=== PATIENT | female | born 1975 | race Caucasian/White ===

== ENCOUNTER 2019-07-12 20:20 | Inpatient (IN) | payer BC ==
[~2019-07-12] VITALS: Ht 152.4 cm; Wt 104.1 kg
--- NOTE | 2019-07-12 20:20 | NUR ---
Placed in room 1 . Placed on quality assurance monitor body, blood pressure machine and pulse oximeter. To gown for exam. Side rails up.
--- NOTE | 2019-07-12 20:20 | NUR ---
ER Dr. Gilman at bedside examining patient.
[2019-07-12 20:25] VITALS: BP_SYST 115
--- NOTE | 2019-07-12 20:25 | NUR ---
Pt came to the ED from [facility] for respiratory distress. Reports that pt was on the vent however, staff noticed pts O2 was 92%. When pt arrived pt was being bagged. Pt is nonverbal as baseline. Upon observation pt is diaphoretic, tachypneic and tachycardic. No other complaints/injuries noted. Will cont. to monitor.
[2019-07-12] MEDS ORDERED: CLINDAMYCIN 900 mg/50mL D5W 50 ML IV ONE (20:30)
[2019-07-12] MEDS ORDERED: NACL 0.9% 1,000 ML IV ONE (20:30)
--- NOTE | 2019-07-12 20:30 | NUR ---
lab at bedside.
--- NOTE | 2019-07-12 20:30 | NUR ---
Per Dr. Gilman pts vent settings are Fortex 7, AC 12, FIO2 60%, 3 PEEP, and tidal volume 400.
[2019-07-12 20:45] LABS: HEMATOCRIT 37.1 % (36-48); HEMOGLOBIN 11.9 g/dL (12.0-16.0); MEAN CORPUSCULAR HEMOGLOBIN 34 pg (27-31); MEAN CORPUSCULAR HGB CONC 32 % (32-36); MEAN CORPUSCULAR VOLUME 106 fL (79.0-98.0); PLATELET COUNT (AUTO) 363 K/uL (130-430); RED CELL DISTRIBUTION WIDTH 15.8 % (9.0-15.0); WHITE BLOOD COUNT (AUTO) 17.1 K/uL (4.8-10.8)
[2019-07-12] MEDS ORDERED: ACETAMINOPHEN 650 MG SUPP.RECT RC ONE (20:45)
--- NOTE | 2019-07-12 21:00 | NUR ---
pt had loose BM. ER Made aware. Pt cleaned. Tolerated well. Will cont. to monitor.
[2019-07-12 21:03] LABS: BILIRUBIN,URINE NEGATIVE (NEGATIVE); BLOOD, URINE 3+ (NEGATIVE); CLARITY/URINE CLOUDY (CLEAR); COLOR,URINE YELLOW (YELLOW); GLUCOSE,URINE NEGATIVE (NEGATIVE); KETONES,URINE NEGATIVE (NEGATIVE); LEUKOCYTE ESTERASE ,URINE 1+ (NEGATIVE); NITRITE, URINE NEGATIVE (NEGATIVE); PROTEIN URINE 3+ (NEGATIVE)
--- NOTE | 2019-07-12 21:08 | NUR ---
radiology at bedside.
[2019-07-12 21:10] LABS: CALCIUM 9.2 mg/dL (8.4-11.0); CREATININE 0.64 mg/dL (0.55-1.30)
[2019-07-12 21:17] LABS: POTASSIUM 5.3 mmol/L (3.5-5.1); TOTAL BILIRUBIN 0.1 mg/dL (0.0-1.0)
[2019-07-12 21:18] LABS: ALBUMIN 2.1 g/dL (3.4-4.8)
[2019-07-12 21:36] LABS: ATYPICAL LYMPHOCYTES % 0 % (0-0); BAND % (MANUAL) 40 % (0-6); BASOPHILS % (MANUAL) 0 % (0-2); EOSINOPHILS % (MANUAL) 2 % (0-7); LYMPHOCYTES % (MANUAL) 10 % (20-46); METAMYELOCYTES % 2 % (0-0); MONOCYTES % (MANUAL) 4 % (0-11)
[2019-07-12 21:44] LABS: BACTERIA,URINE MANY /HPF (None Seen); WBC,URINE >100 /HPF (0-3)
[2019-07-12 21:46] LABS: MUCUS,URINE 1+ /LPF (None Seen); URINE AMORPHOUS URATE 2+ /HPF (None Seen)
[2019-07-12 21:47] LABS: PROTHROMBIN TIME 10.5 SECS (9.5-12.5)
[2019-07-12] MEDS ORDERED: SODIUM POLYSTYRENE SULFONATE 15 GM/60 ML UDBTL RC ONE (22:15)
[2019-07-12] MEDS ORDERED: APIX5TAB4 GT (22:22)
[2019-07-12] MEDS ORDERED: BETH25TA10 GT (22:22)
[2019-07-12] MEDS ORDERED: PEDI0.2517 GT (22:22)
[2019-07-12] MEDS ORDERED: IPRA3AMP9 INH ×2 (22:22)
[2019-07-12] MEDS ORDERED: CRAN1CAP8 GT (22:22)
[2019-07-12] MEDS ORDERED: FURO-149 GT (22:22)
[2019-07-12] MEDS ORDERED: VALP500S4 GT (22:22)
[2019-07-12] MEDS ORDERED: DOCU-144 GT (22:22)
[2019-07-12] MEDS ORDERED: ASCO500T20 PO (22:22)
[2019-07-12] MEDS ORDERED: POTA20TA83 PO (22:22)
[2019-07-12] MEDS ORDERED: CHLO1LIQ2 MC (22:22)
[2019-07-12] MEDS ORDERED: ZINC500P17 GT (22:22)
[2019-07-12] MEDS ORDERED: PHEN20EL8 GT (22:22)
[2019-07-12] MEDS ORDERED: FAMO40TA7 GT (22:22)
[2019-07-12] MEDS ORDERED: CARV3.1246 PO (22:22)
[2019-07-12] MEDS ORDERED: MAGN400T10 GT (22:22)
[2019-07-12] MEDS ORDERED: TYLL650 GT (22:22)
[2019-07-12] MEDS ORDERED: KEPI500 IV (22:22)
[2019-07-12] MEDS ORDERED: NS 500 ML IV ONE (22:30)
--- NOTE | 2019-07-12 22:30 | NUR ---
Medication reconciliation completed with information provided by patients paperwork. Any prior medication reconciliation on file was reviewed and corrected.
--- NOTE | 2019-07-12 23:00 | NUR ---
Patient will be admitted to care of Dr. Nguyen. Admitted to ICU unit. Will go to room 1. Belongings list completed. Complete and up to date summary report printed. SBAR report to be given at bedside with opportunity for questions.
[2019-07-12] MEDS: NACL 0.9% 1,000 ML IV SCH (23:20)
[2019-07-13] VITALS (33 sets, daily range): BP systolic 96–136
[2019-07-13] MEDS: NACL 0.9% 1,000 ML IV SCH ×3 (00:31→18:08)
--- NOTE | 2019-07-13 00:45 | NUR ---
Transfer to ICU via ACLS protocol. Licensed nurse present. IV present no signs or symptoms of infiltration.
--- NOTE | 2019-07-13 00:50 | NUR ---
Admission Note Received report from ED RN. Pt in bed, asleep. Arousable to light stimuli. Pt ST on the monitor. Trach to Vent. Portex 7. AC 12, 400, +3, 60%. Tolerating well, saturations in the mid 90s. Pt has LAC 22g in place, C/D/I. G-tube clamped. Rose catheter has been inserted in ED. Draining urine to gravity. Will continue to monitor/.
--- NOTE | 2019-07-13 01:30 | NUR ---
CONSULTATION PAGED/CALLED Reason for Consultation: Asperation Pneumonia Person Who was Notified: Exchange Consulting Physician: Dr. Gasca (Dr. Patel correctional facility nurse) Homogenizer Operator Specialty: Pulmonary Ordering Physician: Dr. Nguyen
[2019-07-13] MEDS ORDERED: metroNIDAZOLE 500 mg/NS 100 ML IV ONE (02:46)
--- NOTE | 2019-07-13 02:50 | NUR ---
Called Spoke w/ Dr. Patel for initial consultation regarding Pt. New orders received. Will carry out as ordered.
[2019-07-13] MEDS: metroNIDAZOLE 500 mg/NS 100 ML IV SCH ×3 (03:12→16:18)
[2019-07-13 05:37] LABS: BASOPHILS % (AUTO) 0.4 % (0.0-2.0); EOSINOPHILS # (AUTO) 0.1 K/uL (0.0-0.4); EOSINOPHILS % (AUTO) 0.8 % (0.0-4.0); HEMATOCRIT 30.5 % (36-48); HEMOGLOBIN 9.9 g/dL (12.0-16.0); LYMPHOCYTES # (AUTO) 1.8 K/uL (1.0-5.5); MEAN CORPUSCULAR HEMOGLOBIN 34 pg (27-31); MEAN CORPUSCULAR HGB CONC 33 % (32-36); MEAN CORPUSCULAR VOLUME 105 fL (79.0-98.0); MONOCYTES # (AUTO) 2.1 K/uL (0.0-1.0); MONOCYTES % (AUTO) 17.8 % (1.7-9.3); PLATELET COUNT (AUTO) 306 K/uL (130-430); RED BLOOD CELL COUNT(AUTO) 2.92 MIL/uL (4.2-6.2); RED CELL DISTRIBUTION WIDTH 15.2 % (9.0-15.0)
[2019-07-13 06:00] LABS: ALBUMIN 1.8 g/dL (3.4-4.8); CALCIUM 8.1 mg/dL (8.4-11.0); CREATININE 0.4 mg/dL (0.55-1.30); POTASSIUM 3.9 mmol/L (3.5-5.1)
[2019-07-13 06:39] LABS: TOTAL BILIRUBIN 0.2 mg/dL (0.0-1.0)
--- NOTE | 2019-07-13 06:59 | NUR ---
Closing Note Pt in bed, asleep. open eyes spontaneously, but unable to track. Pt is Sr/ST on the monitor, Trach to vent. AC 16, 400, +5, 60%. Pt has LAC 22g in running IVf. IV sites C/D/I. Rose catheter in place draining urine to gravity. Pt has G-tube clamped. Pt cleaned and turned. No s/s of distress noted. Will endorse to oncoming RN.
--- NOTE | 2019-07-13 07:15 | NUR ---
Opening Note Patient report received via SBAR from nightshift RN.
--- NOTE | 2019-07-13 07:30 | NUR ---
Nursing Note Patient lying in non-air mattress bed at 30 degrees, eyes open spontaneously but in unable to track, lethargic. Patient is sinus rhythm on the monitor with occasional PVC, edema present in bilateral extremities, Left AC 22G is running NS @50mL/hr, IV site is clean, dry, and intact. Patient is on trach to ventilator, AC 16, TV 400, Peep 5, Fio2: 60%. Rose catheter is draining to gravity with yellow urine present. G-tube present and clamped, dressings present on bilateral lower extremities and sacrum. Patient in no distress, bed in lowest position.
[2019-07-13] MEDS ORDERED: ACETAMINOPHEN 325 MG TABLET PO PRN (08:30)
[2019-07-13] MEDS ORDERED: ONDANSETRON HCL 4 MG/2 ML VIAL IVP PRN (08:30)
[2019-07-13] MEDS ORDERED: MUPIROCIN 2% TOPICAL OINTMENT 22 GM NS PRN (08:30)
[2019-07-13] MEDS ORDERED: LORazepam 2 MG/ML VIAL IVP PRN (08:30)
[2019-07-13] MEDS ORDERED: POTASSIUM CHLORIDE 20 MEQ TAB.PRT.SR PO PRN (08:30)
[2019-07-13] MEDS ORDERED: IPRATROPIUM/ALBUTEROL SULFATE 3 ML AMPUL.NEB (DUONEB) INH PRN (08:30)
[2019-07-13] MEDS ORDERED: MAGNESIUM SULFATE 50 ML IV PRN (08:30)
[2019-07-13] MEDS ORDERED: DOCUSATE SODIUM 100 MG CAPSULE PO PRN (08:30)
[2019-07-13] MEDS ORDERED: MORPHINE 2 MG/ML INJ. SYRINGE IVP PRN ×2 (08:30)
--- NOTE | 2019-07-13 08:30 | NUR ---
Round Dr. Nguyen at bedside assessing patient, physician entered consult, lab, and medication orders
[2019-07-13] MEDS: IPRATROPIUM/ALBUTEROL SULFATE 3 ML AMPUL.NEB (DUONEB) INH SCH ×2 (08:55→21:00)
[2019-07-13] MEDS ORDERED: FAMOTIDINE 20 MG TABLET GT SCH (09:00)
[2019-07-13] MEDS ORDERED: LevETIRAcetam 500 MG/5 ML UDC ORAL LIQUID GT SCH ×2 (09:00)
[2019-07-13] MEDS ORDERED: VALPROIC ACID ORAL SYRUP 250 MG/5 ML UDC GT SCH (09:00)
[2019-07-13] MEDS: DOCUSATE SODIUM 100 MG CAPSULE PO SCH (09:00)
[2019-07-13] MEDS ORDERED: FUROSEMIDE 40 MG TABLET GT SCH (09:00)
[2019-07-13] MEDS ORDERED: HEPARIN SODIUM,PORCINE 5000 UNITS/ML VIAL SUBCUT SCH (09:00)
[2019-07-13 09:09] LABS: INR 1.1 (0.8-1.2); PROTHROMBIN TIME 10.8 SECS (9.5-12.5)
--- NOTE | 2019-07-13 09:30 | NUR ---
Round Dr. Schmitt, new consult, at bedside assessing patient, physician entered orders
--- NOTE | 2019-07-13 10:00 | NUR ---
Round Dr. Avendaño, new consult, at bedside assessing patient, physician entered orders
[2019-07-13] MEDS: CARVEDILOL 3.125 MG TABLET (COREG) PO SCH ×2 (10:08→20:46)
[2019-07-13] MEDS: BETHANECHOL CHLORIDE 25 MG TABLET (URECHOLINE) GT SCH ×2 (10:09→20:50)
[2019-07-13] MEDS: APIXABAN 2.5 MG TABLET PO SCH ×2 (10:30→20:48)
[2019-07-13] MEDS: VALPROIC ACID ORAL SYRUP 250 MG/5 ML UDC GT SCH ×3 (10:45→20:49)
[2019-07-13] MEDS: FUROSEMIDE 40 MG TABLET GT SCH ×2 (10:45→20:46)
--- NOTE | 2019-07-13 10:45 | NUR ---
Round Dr. Gasca at bedside assessing patient for consult, physician entered orders
--- NOTE | 2019-07-13 11:20 | NUR ---
WOUND EVALUATION: Late note for 1120 secondary to patient care. Wound Consult received from Dr. Nguyen. Thank you, Dr. Nguyen, for the consult. Patient received in a [place] Bed with an Atmos-Air 9000 mattress, awake, nonverbal, nonresponsive to verbal commands. Patient is unable to turn in bed independently. Wyatt Score is an 11. Past Medical History: Cerebral infarct, CVA, Obesity, history of multiple episodes of Pneumonia, Dysphagia, recent ventilator dependent pneumonia, Seizure disorder, Hydrocephalus, possible developmental delay, Respiratory Failure, COPD, Tachycardia, Aspiration Pneumonia, Tracheostomy, ventilator dependent, PEG placement. Recent Labs: WBC 12.0, RBC 2.92, hemoglobin 9.9, hematocrit 30.5, BUN 15, creatinine 0.40, GFR 185, calcium 8.1, alkaline phosphatase 140, albumin 1.8, PTT 20.8. Microbiology: Blood culture results 2 in progress. Urine culture results in progress. MRSA screen results in progress. Endotracheal sputum culture results in progress. Intrinsic factors that delay wound healing: Dysphagia, COPD, Respiratory Failure, ventilator dependent. Extrinsic factors that delay wound healing: Immobility. Wound Assessment: 1. Right Lateral Breast Fold: Crusty/scab area with 50% yellow scab and 50% black scab and erythema. No odor, no drainage. Site measures 1.4 cm x 2.7 cm. 2. Left Lateral Breast Fold Crusty/scab area with 50% yellow scab and 50% black scab and erythema. No odor, no drainage. Site measures 5.0 cm x 2.2 cm. 3. Right Upper Lateral Abdominal Skin Fold Crusty/scab area with 50% yellow scab and 50% black scab and erythema. No odor, no drainage. Site measures 8.5 cm x 1.4 cm. 4. Left Upper Lateral Abdominal Skin Fold Crusty/scab area with 50% yellow scab and 50% black scab and erythema. No odor, no drainage. Site measures 9.5 cm x 3.2 cm. Recommend: Cleanse involved areas with mild soap and water. Pat dry. Apply Hydraguard barrier cream to scaly areas. Apply antifungal powder to reddened fold areas. Insert Inter-dry AG cloth into fold areas. Perform site care BID. Replace Inter-dry AG cloth q 5 days and as needed for cloth soiling or dislodgement. 5. Abdominal fold: Intertrigo with erythema, present on admission. Nonintact skin from intertrigo present on left lateral aspect. 6. Right Inguinal Area: IAD with erythema, present on admission. 7. Left Inguinal Area: IAD with erythema, present on admission. Recommend: Cleanse involved areas with mild soap and water. Pat dry. Apply antifungal powder to reddened fold areas and reddened inguinal/thigh areas. Insert Inter-dry AG cloth into fold areas. Perform site care BID. Replace Inter-dry AG cloth q 5 days and as needed for cloth soiling or dislodgement. 8. Right Buttock: Scar tissue with moisture associated skin damage, present on admission. No odor, scant sanguineous drainage. Periwound intact. Site measures 4.0 cm x 3.0 cm. 9. Left Buttock: Scar tissue with moisture associated skin damage, present on admission. No odor, scant sanguineous drainage. Periwound intact. Site measures 0.6 cm x 2.7 cm. Recommend: Cleanse wounds with normal saline. Apply Calmoseptine cream to wounds, hai-wounds and surrounding tissue. Apply Venelex ointment to any portion of sites not covered by Calmoseptine cream. Cover with Sacral foam dressing. Perform wound care daily, and as needed for dressing soiling or dislodgement. 10. Right Distal Lateral Lower Extremity: Scar tissue, present on admission. Area has scar tissue with a red discolored spot and dark discoloration. Site measures 7.0 cm x 7.5 cm. Recommend: Cover site with foam dressing. Offload site at all times. 11. Right Distal Lateral Lower Extremity, Inferior to Site 10: Unstageable pressure ulcer, present on admission. Wound bed has 90% yellow slough, 10% red tissue. No odor, scant sanguineous drainage. Periwound intact. Surrounding tissue has dark discoloration and scar tissue. Wound measures 5.4 cm x 1.5 cm by 0.2 cm. Recommend: Cleanse wound with normal saline. Apply Calmoseptine cream to hai-wound. Apply Venelex ointment to wound. Cover with foam dressing. Perform wound care daily, and as needed for dressing soiling or dislodgement. Offload site at all times. 12. Right Proximal Medial Calf: Vertical linear shaped area of hypertrophic scar tissue, present on admission. Scar tissue has dark discoloration. No odor, no drainage. Site measures 13.5 cm x 2.0 cm. 13. Right Dorsal Foot: Scar tissue with dry red excoriations, present on admission. Recommend: No dressings needed. Continue to monitor sites every shift. 14. Right Lateral 5th Metatarsal Head: Scar tissue with blanchable pink erythema, present on admission. 15. Right Heel: Scar tissue with blanchable red erythema, present on admission. Recommend: Cover sites with foam dressings. Offload sites at all times. 16. Left Distal Lateral Lower Extremity: Unstageable pressure ulcer, present on admission. Wound bed has 50% yellow slough, 50% pink tissue. No odor, no drainage. Periwound intact. Surrounding tissue has dark discoloration and scar tissue. Wound measures 1.5 cm x 0.7 cm by 0.3 cm. 17. Left Distal Lateral Lower Extremity, surrounding site above: Scar tissue, present on admission. Area is surrounding site above. Has pink scar tissue, dark discoloration, and blanchable red erythema. Site measures 18.5 cm x 5.5 cm. Recommend: Cover site with foam dressing. Offload site at all times. 18. Left Heel: Unstageable pressure ulcer, present on admission. Wound bed has 40% pink tissue, 30% red tissue, 20% yellow slough, 10% black tissue. No drainage. Periwound intact. Wound measures 3.9 cm x 3.5 cm x 0.6 cm. Recommend: Cleanse wound with normal saline. Apply Calmoseptine cream to hai-wound. Apply Venelex ointment to wound. Cover with foam dressing. Perform wound care daily, and as needed for dressing soiling or dislodgement. Offload site at all times. Also recommend: Reposition patient side to side only every 2 hours with pillow support (one pillow underneath trunk and one pillow underneath pelvis) and off-load pressure areas with pillows for pressure re-distribution. Offload, elevate and float bilateral heels with pillows. Perform skin care and monitor skin integrity Q shift. Use Calmoseptine cream on buttocks and other moisture susceptible areas QID and as needed for soiling. Place patient on a low air-loss mattress.
[2019-07-13] MEDS ORDERED: GENTAMICIN 120 mg/ NS 100 mL IVPB IV ONE (12:00)
[2019-07-13] MEDS ORDERED: GENTAMICIN SULFATE 140 MG in NS 100 ML IV ONE (12:00)
[2019-07-13] MEDS: GENTAMICIN 120 mg/100 mL NS 100 ML IV SCH ×2 (12:53→20:42)
--- NOTE | 2019-07-13 13:00 | NUR ---
Nursing Note Patient repositioned in bed, oral care provided, patient tolerated well
--- NOTE | 2019-07-13 13:30 | NUR ---
Nursing Note Patient's tubefeeding started, patient tolerating well, 0mL residual after 1 hour
[2019-07-13] MEDS ORDERED: MENTHOL/ZINC OXIDE 113 GM OINT. TP PRN (16:00)
--- NOTE | 2019-07-13 16:00 | NUR ---
Nursing Note Patient repostiioned in bed, oral care given. Family members at beside vising patient.
--- NOTE | 2019-07-13 19:15 | NUR ---
Closing Note Patient report given to nightshift RN via SBAR communication
--- NOTE | 2019-07-13 19:20 | NUR ---
OPENING NOTE SBAR REPORT RECEIVED FROM GISELA RIZVI. CARE ASSUMED. PT LAYING IN BED. ANO X 0. PT HAS TRACH PORTEX 7.0. VENT SETTING AC 16 TV 400 FiO2 60% PEEP 5. TOLERATING VENT SETTINGS WELL. O2 SATURATION 100%. PT SINUS RHYTHM ON MONITOR. PT HAS 22G TO LEFT AC RUNNING NS @ 50 ML/HR. PEDAL AND RADIAL PULSES NORMAL. 1+ PITTING EDEMA TO BILATERAL UPPER AND LOWER EXTREMITIES. ABDOMEN FIRM AND DISTENDED. REDNESS TO ABDOMEN NOTED. G-TUBE IN PLACE RUNNING JEVITY 1.5 @ 40 CC/HR. RESIDUAL 5CC. SLATER CATHETER IN PLACE FLOWING TO GRAVITY. URINE CLEAR AND YELLOW. PT HAS WOUND TO SACRUM, WOUNDS TO BILATERAL HEALS, 2 WOUNDS TO LEFT LEG, AND 2 WOUNDS TO RIGHT LEG. ALL DRESSING CLEAN DRY AND INTACT. BED LOCKED IN LOWEST POSITION. SAFETY PRECAUTIONS IN PLACE. CALL LIGHT WITHIN REACH. WILL CONTINUE TO MONITOR.
--- NOTE | 2019-07-13 20:30 | NUR ---
RN UPDATE PICC LINE RN GRETCHEN AT BEDSIDE. TIME OUT PERFORMED. WILL CONTINUE TO MONITOR.
[2019-07-13] MEDS: LEVOFLOXACIN 500 MG/D5W 100 ML IV SCH (20:42)
[2019-07-13] MEDS: LevETIRAcetam 500 MG/5 ML UDC ORAL LIQUID GT SCH (20:51)
--- NOTE | 2019-07-13 20:51 | NUR ---
PAGED I PAGED DR. SPEARS I SPOKE WITH ALEX MALAVE
--- NOTE | 2019-07-13 20:54 | NUR ---
MD UPDATE SPOKE TO DR. SPEARS REGARDING PHENOBARBITAL LEVEL. DR. SPEARS WANTS 2100 DOSE HELD AND WOULD LIKE A REPEAT LEVEL IN THE AM. ORDERS UPDATED. WILL CONTINUE TO MONITOR.
--- NOTE | 2019-07-13 20:56 | NUR ---
DR.TSANG DR. SPEARS CALLED BACK @ 2055
[2019-07-13] MEDS ORDERED: PHENobarbital 30 MG TABLET PO SCH (21:00)
[2019-07-13] MEDS: NYSTATIN 15 GM TOPICAL POWDER TP SCH (21:48)
[2019-07-14] VITALS (31 sets, daily range): BP systolic 84–128
[2019-07-14] MEDS: metroNIDAZOLE 500 mg/NS 100 ML IV SCH ×3 (00:57→15:48)
--- NOTE | 2019-07-14 02:00 | NUR ---
RN UPDATE G TUBE SITE LEAKING. DRESSING AND GOWN SOILED WITH FEEDING. TUBE FEEDING STOPPED. GOWN AND DRESSING CHANGED. WILL CONTINUE TO MONITOR.
[2019-07-14] MEDS: GENTAMICIN 120 mg/100 mL NS 100 ML IV SCH (04:01)
[2019-07-14] MEDS ORDERED: DIPHENHYDRAMINE INJ 50 MG/ML VIAL IVP SCH (05:10)
[2019-07-14] MEDS ORDERED: methylPREDNISolone SOD SUCC 40 MG/ML VIAL IVP SCH (05:10)
[2019-07-14 06:48] LABS: BASOPHILS % (AUTO) 0.2 % (0.0-2.0); EOSINOPHILS # (AUTO) 0.4 K/uL (0.0-0.4); EOSINOPHILS % (AUTO) 3.6 % (0.0-4.0); HEMATOCRIT 32.6 % (36-48); HEMOGLOBIN 10.8 g/dL (12.0-16.0); LYMPHOCYTES # (AUTO) 0.8 K/uL (1.0-5.5); LYMPHOCYTES % (AUTO) 7.4 % (20.5-51.5); MEAN CORPUSCULAR HEMOGLOBIN 34 pg (27-31); MEAN CORPUSCULAR HGB CONC 33 % (32-36); MEAN CORPUSCULAR VOLUME 103 fL (79.0-98.0); MONOCYTES # (AUTO) 0.6 K/uL (0.0-1.0); MONOCYTES % (AUTO) 5.5 % (1.7-9.3); NEUTROPHILS # (AUTO) 8.9 K/uL (1.8-7.7); NEUTROPHILS % (AUTO) 83.3 % (40.0-70.0); PLATELET COUNT (AUTO) 307 K/uL (130-430); RED BLOOD CELL COUNT(AUTO) 3.16 MIL/uL (4.2-6.2); RED CELL DISTRIBUTION WIDTH 15.1 % (9.0-15.0); WHITE BLOOD COUNT (AUTO) 10.6 K/uL (4.8-10.8)
--- NOTE | 2019-07-14 07:05 | NUR ---
Received patient and report from [facility] shift nurse. Patient in no acute distress. Breathing even and unlabored. Call light with in reach.
[2019-07-14 07:26] LABS: CREATININE 0.4 mg/dL (0.55-1.30); GENTAMICIN,TROUGH 1.9 ug/mL (0.2-2.0)
--- NOTE | 2019-07-14 07:46 | NUR ---
CLOSING NOTE PT LAYING IN BED. PT IN MODERATE DISTRESS. PT SATURATING AT 95% ON 4L OXIMIZER. SBAR REPORT GIVEN TO SABIHA RIZVI. CARE ENDORSED. Addendum: 07/14/19 at 0748 by Abiola York RN SBAR REPORT GIVEN TO GISELA RIZVI.
[2019-07-14] MEDS ORDERED: D5NS 1,000 ML IV SCH (08:15)
[2019-07-14 08:17] LABS: POTASSIUM 1.8 mmol/L (3.5-5.1)
--- NOTE | 2019-07-14 08:29 | NUR ---
New consult paged to Dr. Herrera. Spoke with exchange.
[2019-07-14] MEDS ORDERED: MAGNESIUM SULFATE 50 ML IV ONE (08:30)
[2019-07-14] MEDS ORDERED: POTASSIUM CHLORIDE 40 MEQ, LIDOCAINE JECT 2% PF 100 MG 50 MG in NS 250 ML IV ONE ×2 (08:30→13:00)
[2019-07-14] MEDS: PHENobarbital 30 MG TABLET PO SCH ×2 (09:00→21:00)
[2019-07-14] MEDS: BALSAM PERU/CASTOR OIL 60 GM OINT...G. TP SCH (09:09)
[2019-07-14] MEDS: BETHANECHOL CHLORIDE 25 MG TABLET (URECHOLINE) GT SCH ×2 (09:09→21:06)
[2019-07-14] MEDS: NYSTATIN 15 GM TOPICAL POWDER TP SCH ×2 (09:09→21:04)
[2019-07-14] MEDS: FUROSEMIDE 40 MG/4 ML VIAL IVP SCH (09:10)
[2019-07-14] MEDS: VALPROIC ACID ORAL SYRUP 250 MG/5 ML UDC GT SCH ×3 (09:11→21:01)
[2019-07-14] MEDS: LevETIRAcetam 500 MG/5 ML UDC ORAL LIQUID GT SCH ×2 (09:11→21:06)
[2019-07-14] MEDS: CARVEDILOL 3.125 MG TABLET (COREG) PO SCH ×2 (09:12→21:05)
[2019-07-14] MEDS: DOCUSATE SODIUM 100 MG CAPSULE PO SCH (09:12)
[2019-07-14] MEDS: APIXABAN 2.5 MG TABLET PO SCH ×2 (09:14→21:02)
--- NOTE | 2019-07-14 12:17 | NUR ---
Nutrition Update Wyatt Scale 11 noted. Pt admitted for aspiration PNA Diet: Jevity 1.5 at 40ml/hr, 50ml free water flush Q6h BMI: 38.9 kg/m2 RD to follow per nutrition care standards.
[2019-07-14] MEDS ORDERED: POTASSIUM CHLORIDE 20 MEQ TAB.PRT.SR PO ONE (12:30)
[2019-07-14] MEDS ORDERED: IOHEXOL 100 ML IV ONE (14:28)
--- NOTE | 2019-07-14 14:40 | NUR ---
Left unit with patient for CT scan of abdomen with contrast. Patient transferred with portable tele and 02 monitor, respiratory therapist.
--- NOTE | 2019-07-14 15:20 | NUR ---
Returned to unit at 1515. Patient tolerated procedure well.
[2019-07-14 15:35] LABS: POTASSIUM 2.5 mmol/L (3.5-5.1)
--- NOTE | 2019-07-14 17:05 | NUR ---
Paged for GI consult covering for cheryl Olivas MD covering.
--- NOTE | 2019-07-14 18:56 | NUR ---
Dietitian Recommendations *Resume Jevity 1.5 at 40ml/hr with 50ml Q6h if/when medically appropriate *Provides 1440kcal, 61gPro and 929ml of free water *Meets 114%upper end of kcal and 90%lower end of estimated protein needs *When/if TF resumed, recommend Daniel BID to aid with wound healing Please see Nutrition Assessment for further details. LT, RD
--- NOTE | 2019-07-14 19:16 | NUR ---
Endorsed patient and gave report to oncoming shift nurse. Patient in no acute distress. Padded side rails in place. Breathing even and unlabored. Call light with in reach.
--- NOTE | 2019-07-14 20:00 | NUR ---
OBTUNDED. RESPONDS TO NOXIOUS AND PAINFUL STIMULI. TRACH TO VENT. SUCTIONED WITH MOD AMOUNT OF THICK SPICER COLORED MUCUS OBTAINED. ORAL CARE RENDERED. GT FEEDING ON HOLD. MARA PICC LINE DB D/I. SLATER CATH PATENT DRAINING CLOUDY MAXI URINE TO GRAVITY. SR. CONTACT ISOLATION OBSERVED.
[2019-07-14] MEDS: IPRATROPIUM/ALBUTEROL SULFATE 3 ML AMPUL.NEB (DUONEB) INH SCH (20:02)
[2019-07-14 20:05] LABS: CALCIUM 7.8 mg/dL (8.4-11.0); CREATININE 0.42 mg/dL (0.55-1.30)
[2019-07-14 20:11] LABS: POTASSIUM 2.8 mmol/L (3.5-5.1)
--- NOTE | 2019-07-14 20:35 | NUR ---
DR MOSS NOTIFIED OF POTASSIUM 2.8, ORDERED TO GIVE 40 MEQ IVPB . TO BE IMPLEMENTED.
[2019-07-14] MEDS: LEVOFLOXACIN 500 MG/D5W 100 ML IV SCH (21:06)
[2019-07-14] MEDS: KCL 20 mEq in 100 mL (PREMIX) 100 ML IV SCH ×2 (21:54→23:11)
--- NOTE | 2019-07-14 22:00 | NUR ---
SUCTIONED. HS CARE DONE. TURNED.
[2019-07-15] VITALS (30 sets, daily range): BP systolic 93–137
--- NOTE | 2019-07-15 | NUR ---
DOZES ON AND OFF. SUCTIONED WITH SAME RESULTS. ORAL CARE GIVEN. GT FLUSHED WITH 50 CC H2O. TURNED.
[2019-07-15] MEDS: metroNIDAZOLE 500 mg/NS 100 ML IV SCH ×4 (00:12→23:55)
--- NOTE | 2019-07-15 02:00 | NUR ---
ASLEEP. REPOSITIONED. SUCTIONED.
--- NOTE | 2019-07-15 04:00 | NUR ---
CHG BATH GIVEN. GT DRSG CHANGED. SUCTIONED. ORAL CARE GIVEN. BACK CARE, SLATER CARE, SKIN CARE, UMANG-CARE DONE. PARTIAL LINEN CHANGE DONE. DOES NOT ASSIST WITH TURNING. PRICE PROC WELL.
--- NOTE | 2019-07-15 06:00 | NUR ---
SUCTIONED AND TURNED Q2 HRS AND PRN. UO ADEQUATE. VSS. GT FLUSHED WITH 50CC H2O. REMAINS IN GUARDED CONDITION.
[2019-07-15 07:59] LABS: BASOPHILS % (AUTO) 0.3 % (0.0-2.0); EOSINOPHILS # (AUTO) 0.5 K/uL (0.0-0.4); EOSINOPHILS % (AUTO) 5.1 % (0.0-4.0); HEMATOCRIT 34.8 % (36-48); HEMOGLOBIN 11.5 g/dL (12.0-16.0); LYMPHOCYTES # (AUTO) 1.5 K/uL (1.0-5.5); LYMPHOCYTES % (AUTO) 14.3 % (20.5-51.5); MEAN CORPUSCULAR HEMOGLOBIN 34 pg (27-31); MEAN CORPUSCULAR HGB CONC 33 % (32-36); MEAN CORPUSCULAR VOLUME 103 fL (79.0-98.0); MONOCYTES # (AUTO) 0.8 K/uL (0.0-1.0); MONOCYTES % (AUTO) 7.5 % (1.7-9.3); NEUTROPHILS # (AUTO) 7.5 K/uL (1.8-7.7); NEUTROPHILS % (AUTO) 72.8 % (40.0-70.0); PLATELET COUNT (AUTO) 309 K/uL (130-430); RED BLOOD CELL COUNT(AUTO) 3.38 MIL/uL (4.2-6.2); RED CELL DISTRIBUTION WIDTH 15.5 % (9.0-15.0); WHITE BLOOD COUNT (AUTO) 10.3 K/uL (4.8-10.8)
[2019-07-15 08:32] LABS: CALCIUM 8.7 mg/dL (8.4-11.0); CHLORIDE 112 mmol/L (98-107); CREATININE 0.41 mg/dL (0.55-1.30); GLUCOSE 102 mg/dL (70-99); POTASSIUM 3.8 mmol/L (3.5-5.1); SODIUM SERUM 145 mmol/L (136-145); UREA NITROGEN, BLOOD 7 mg/dL (8-21)
[2019-07-15 08:34] LABS: ANION GAP < 3 (5-15); GFR AFRICAN AMERICAN 218 mL/min (>90)
[2019-07-15] MEDS: BETHANECHOL CHLORIDE 25 MG TABLET (URECHOLINE) GT SCH ×2 (09:00→21:30)
[2019-07-15] MEDS: VALPROIC ACID ORAL SYRUP 250 MG/5 ML UDC GT SCH ×3 (09:05→21:29)
[2019-07-15] MEDS: LevETIRAcetam 500 MG/5 ML UDC ORAL LIQUID GT SCH ×2 (09:06→21:29)
[2019-07-15] MEDS: FUROSEMIDE 40 MG/4 ML VIAL IVP SCH (09:07)
[2019-07-15] MEDS: DOCUSATE SODIUM 100 MG CAPSULE PO SCH (09:08)
[2019-07-15] MEDS: APIXABAN 2.5 MG TABLET PO SCH ×2 (09:13→21:35)
[2019-07-15] MEDS: PHENobarbital 30 MG TABLET PO SCH ×2 (09:13→21:00)
[2019-07-15] MEDS: NYSTATIN 15 GM TOPICAL POWDER TP SCH ×2 (09:14→21:32)
[2019-07-15] MEDS: CARVEDILOL 3.125 MG TABLET (COREG) PO SCH ×2 (09:14→21:31)
[2019-07-15] MEDS: BALSAM PERU/CASTOR OIL 60 GM OINT...G. TP SCH (09:14)
[2019-07-15] MEDS ORDERED: FUROSEMIDE 40 MG/4 ML VIAL ONE (09:37)
[2019-07-15] MEDS: D5/0.45 NS 1,000 ML IV SCH (14:04)
[2019-07-15 17:25] LABS: PHENOBARBITAL 41.8 ug/mL (15.0-40.0)
--- NOTE | 2019-07-15 19:30 | NUR ---
PER REPORT FROM PREVIOUS SHIFT ATA RIZVI, ALL WOUND DRESSINGS HAVE BEEN CHANGED TODAY. ALL DRESSING ARE CLEAN, DRY AND INTACT.
--- NOTE | 2019-07-15 20:00 | NUR ---
TRACH TO VENT. OPENS EYES SPON. DOES NOT TRACT. DOES NOT FOLLOW COMMANDS. RESPONDS TO NOXIOUS STIMULI. SUCTIONED TRACH VIA LUNDY WITH MOD AMOUNT OF THICK CREAM COLORED MUCUS OBTAINED. ORAL CARE GIVEN. PEG CLAMPED. MARA PICC LINE DB D/I. SLATER CATH PATENT DRAINING CLOUDY MAXI URINE TO GRAVITY. SR. SIDE RAILS PADDED.
[2019-07-15] MEDS: IPRATROPIUM/ALBUTEROL SULFATE 3 ML AMPUL.NEB (DUONEB) INH SCH (20:05)
[2019-07-15] MEDS: LEVOFLOXACIN 500 MG/D5W 100 ML IV SCH (21:32)
--- NOTE | 2019-07-15 22:00 | NUR ---
HS CARE DONE.
[2019-07-16] VITALS (30 sets, daily range): BP systolic 77–115
--- NOTE | 2019-07-16 | NUR ---
SUCTIONED. TURNED. RESIDUAL CHECK 0. GT FLUSHED WITH 200CC H2O.
--- NOTE | 2019-07-16 04:00 | NUR ---
[facility].
--- NOTE | 2019-07-16 06:00 | NUR ---
SUCTIONED AND TURNED Q2 HRS AND PRN. GT FLUSHED WITH 50CC H2O. REMAINS IN GUARDED CONDITION.
[2019-07-16 06:09] LABS: BASOPHILS # (AUTO) 0.1 K/uL (0.0-0.2); BASOPHILS % (AUTO) 0.5 % (0.0-2.0); EOSINOPHILS % (AUTO) 8.2 % (0.0-4.0); HEMATOCRIT 34.2 % (36-48); HEMOGLOBIN 11.3 g/dL (12.0-16.0); LYMPHOCYTES # (AUTO) 1.4 K/uL (1.0-5.5); LYMPHOCYTES % (AUTO) 11.8 % (20.5-51.5); MEAN CORPUSCULAR HEMOGLOBIN 34 pg (27-31); MEAN CORPUSCULAR HGB CONC 33 % (32-36); MEAN CORPUSCULAR VOLUME 103 fL (79.0-98.0); MONOCYTES # (AUTO) 0.7 K/uL (0.0-1.0); MONOCYTES % (AUTO) 5.5 % (1.7-9.3); NEUTROPHILS # (AUTO) 8.9 K/uL (1.8-7.7); PLATELET COUNT (AUTO) 347 K/uL (130-430); RED BLOOD CELL COUNT(AUTO) 3.33 MIL/uL (4.2-6.2); RED CELL DISTRIBUTION WIDTH 15.5 % (9.0-15.0)
[2019-07-16 06:26] LABS: CALCIUM 8.2 mg/dL (8.4-11.0); CREATININE 0.42 mg/dL (0.55-1.30)
[2019-07-16 06:34] LABS: POTASSIUM 2.9 mmol/L (3.5-5.1)
--- NOTE | 2019-07-16 06:40 | NUR ---
DR MOSS NOTIFIED OF POTASSIUM 2.9 AND LOW URINE OUTPUT OF 250CC FOR 12 HRS. ORDERED TO GIVE POTASSIUM 80MEQ TOTAL GT , MAGNESIUM 2 GM IVPB AND DO A BLADDER SCAN. TO BE IMPLEMENTED.
[2019-07-16] MEDS ORDERED: POTASSIUM CHLORIDE 20 MEQ/PKT PACKET GT ONE (06:45)
--- NOTE | 2019-07-16 07:00 | NUR ---
ENDORSED CARE TO DAY SHIFT NURSE ALEISHA RIZVI. ORDERS OF DR MOSS RELAYED, TO BE CARRIED OUT.
--- NOTE | 2019-07-16 07:30 | NUR ---
REPORT WAS DONE PATIENT LAB K+ 2.9 ORDER TO GIVE TOTAL K 80MCG TO GIVE PO THIS WAS DONE ALSO BLADDER SCAN WAS DONE RESULT 21 ML NOTICE THE PATIENT WHOLE BODY WAS RED LIKE AN LOBSTER FROM HEAD TO TOES , PATIENT WILL OPEN EYES NO FOCUS PATIENT IS NPO FOR NOW DR MOSS WAS HERE TO SEE THE PATIENT WOULD LIKE TO START THE PATIENT ON TPN ALSO JACINTO HAVE THE SURGEON TO SEE THE PATIENT ,NOTICE THE DRESSING ON THE PET TUBE WAS SOAK NO TUBE, FEEDING WATERY DRAINAGE WILL APPLIED MORE DRESSING TO SITE SKIN WAS RED AND SWOLLEN , LEG AND ARM HAND 2+ TO 3+ THRID SPACING OF FLUIDS 1200 MOTHER AT BEDSIDE FREE WATER WAS HELD MEDICATION WERE GIVEN AND TOLERATE NO LEAKAGE PATIENT WAS START ON ALBUMIN 25% 50 ML Q4HR , WAS STARTED DIFLUCAN 100MG WAS ALSO GIVEN AND NEW MEDICATION BLOOD PRESSURE LOW 89/45 LASIX AND COREG MED WERE HELD NOT GIVEN DUE TO THE LOW BP, STABLE 1600 BAG OF 250 NS+40MCG KCL ORDER BY DR MOSS ,BUT NOT GIVEN CALL DR MOSS TO UP DATE ON THE MEDICATION WAS GIVEN IN THE EARLY AM , THE FOR NOT TO GIVEN MEDICATION, WILL KEEP LATER IF THE KCL IS LOW IN THE AM 1800 URINE OUT PUT LOW 200ML VERY DARK HAD AN VERY LARGE BM OF SOFT BROWN STOOL SKIN CARE WAS GIVEN WITH CCHG STABLE THE SURGEON WAS HERE TO SEE THE PATIENT , WILL TALK TO DR MOSS THIS CASE MAY GI CONSULT , WILL CONTINUED WITH PLAN OF CARE, STABLE
[2019-07-16] MEDS: IPRATROPIUM/ALBUTEROL SULFATE 3 ML AMPUL.NEB (DUONEB) INH SCH ×4 (08:20→20:05)
[2019-07-16] MEDS: DOCUSATE SODIUM 100 MG CAPSULE PO SCH (09:30)
[2019-07-16] MEDS ORDERED: POTASSIUM CHLORIDE 20 MEQ/PKT PACKET PO PRN ×2 (09:51→10:30)
[2019-07-16] MEDS: metroNIDAZOLE 500 mg/NS 100 ML IV SCH ×2 (10:03→16:30)
[2019-07-16] MEDS: VALPROIC ACID ORAL SYRUP 250 MG/5 ML UDC GT SCH ×2 (10:06→22:01)
[2019-07-16] MEDS: LevETIRAcetam 500 MG/5 ML UDC ORAL LIQUID GT SCH ×2 (10:07→18:53)
[2019-07-16] MEDS: BETHANECHOL CHLORIDE 25 MG TABLET (URECHOLINE) GT SCH ×2 (10:07→22:02)
[2019-07-16] MEDS: PHENobarbital 30 MG TABLET PO SCH ×2 (10:08→22:04)
[2019-07-16] MEDS: CARVEDILOL 3.125 MG TABLET (COREG) PO SCH ×2 (10:09→22:03)
[2019-07-16] MEDS: APIXABAN 2.5 MG TABLET PO SCH ×2 (10:12→22:05)
[2019-07-16] MEDS: BALSAM PERU/CASTOR OIL 60 GM OINT...G. TP SCH (10:13)
[2019-07-16] MEDS: NYSTATIN 15 GM TOPICAL POWDER TP SCH ×2 (10:13→22:03)
--- NOTE | 2019-07-16 10:23 | NUR ---
CONSULTATION PAGED PRIORITY: ROUTINE REASON FOR CONSULTATION?:CATHETERS IN ABD, POSSIBLE ABSCESS FORMATION WAS CONSULT CALLED:Y PERSON WHO WAS NOTIFIED:JEREMIAH CONSULTING PHYSICIAN:JIM BEARD [employer] SPECIALTY:SURGEON [employer] PHONE NUMBER:[phone] RE[facility]ING [facility]ICIAN[facility]
[2019-07-16] MEDS: FUROSEMIDE 40 MG/4 ML VIAL IVP SCH (10:36)
[2019-07-16] MEDS ORDERED: POTASSIUM CHLORIDE 40 MEQ in NS 250 ML IV ONE (11:00)
[2019-07-16] MEDS ORDERED: COLISTIMETHATE SODIUM 150 MG VIAL INH SCH (11:15)
[2019-07-16] MEDS: ALBUMIN HUMAN 25% 50 ML IV SCH ×3 (15:00→18:52)
[2019-07-16] MEDS: FLUCONAZOLE 100 mg/ NS 50 ML IV SCH (15:06)
--- NOTE | 2019-07-16 16:49 | NUR ---
PAGED PAGED [facility] AT [phone] LEFT A VOICEMAIL.
--- NOTE | 2019-07-16 19:08 | NUR ---
PAGED PAGED ,[facility] AT [phone] SPOKE WITH .
--- NOTE | 2019-07-16 20:00 | NUR ---
TRACH TO VENT. SUCTIONED WITH MOD AMOUNT OF THICK WHITE MUCUS OBTAINED. ORAL CARE GIVEN. GT CLAMPED. SLATER CATH PATENT DRAINING SCANT CLOUDY MAXI URINE TO GRAVITY. MARA PICC LINE DB D/I. SR. CONTACT ISOLATION OBSERVED.
[2019-07-16] MEDS: COLISTIMETHATE SODIUM 75 MG in NS 50 ML IV SCH (22:02)
--- NOTE | 2019-07-16 23:25 | NUR ---
PAGED PAGED DR. SPEARS; LANGUAGE THERAPIST -DR. BURGOS, REGARDING ORDERS, SPOKE WITH SOY
[2019-07-16] MEDS ORDERED: ALBUMIN HUMAN 25% 50 ML IV ONE (23:30)
--- NOTE | 2019-07-16 23:35 | NUR ---
DR BURGOS, AUTOMOTIVE MACHINIST APPRENTICE FOR DR SPEARS, NOTIFIED OF STATUS, LOW BP AND LOW URINE OUTPUT. ORDERED TO INCREASE PIV TO 100CC/HR, TO GIVE 3RD DOSE OF ALBUMIN, AND MAY START LEVOPHED TO KEEP MAP > 65. IMPLEMENTED.
[2019-07-17] VITALS (30 sets, daily range): BP systolic 86–144
[2019-07-17] MEDS: metroNIDAZOLE 500 mg/NS 100 ML IV SCH ×4 (00:14→23:55)
[2019-07-17] MEDS: NOREPINEPHRINE BITARTRATE 4 MG in NS 246 ML IV PRN ×2 (00:30→21:07)
--- NOTE | 2019-07-17 00:30 | NUR ---
LEVOPHED DRIP STARTED AT 2 MCG/MIN FOR BP 85/35.
[2019-07-17] MEDS ORDERED: NOREPINEPHRINE 4 MG/4 ML VIAL IV ONE ×2 (00:35→21:15)
--- NOTE | 2019-07-17 00:45 | NUR ---
LEVOPHED INCREASED TO 4 MCG/MIN FOR BP 89/39.
--- NOTE | 2019-07-17 02:00 | NUR ---
BP BETTER. NO DISTRESS NOTED.
[2019-07-17] MEDS: D5/0.45 NS 1,000 ML IV SCH ×3 (03:26→14:08)
--- NOTE | 2019-07-17 04:00 | NUR ---
SUCTIONED. TURNED . AM CARE GIVEN.
[2019-07-17 05:55] LABS: BASOPHILS % (AUTO) 0.1 % (0.0-2.0); EOSINOPHILS # (AUTO) 0.9 K/uL (0.0-0.4); EOSINOPHILS % (AUTO) 10.2 % (0.0-4.0); HEMATOCRIT 29.4 % (36-48); HEMOGLOBIN 9.8 g/dL (12.0-16.0); LYMPHOCYTES # (AUTO) 1.3 K/uL (1.0-5.5); LYMPHOCYTES % (AUTO) 14.6 % (20.5-51.5); MEAN CORPUSCULAR HEMOGLOBIN 34 pg (27-31); MEAN CORPUSCULAR HGB CONC 34 % (32-36); MEAN CORPUSCULAR VOLUME 103 fL (79.0-98.0); MONOCYTES # (AUTO) 0.7 K/uL (0.0-1.0); MONOCYTES % (AUTO) 8.2 % (1.7-9.3); NEUTROPHILS # (AUTO) 5.9 K/uL (1.8-7.7); NEUTROPHILS % (AUTO) 66.9 % (40.0-70.0); PLATELET COUNT (AUTO) 313 K/uL (130-430); RED BLOOD CELL COUNT(AUTO) 2.86 MIL/uL (4.2-6.2); RED CELL DISTRIBUTION WIDTH 15.8 % (9.0-15.0); WHITE BLOOD COUNT (AUTO) 8.9 K/uL (4.8-10.8)
--- NOTE | 2019-07-17 06:00 | NUR ---
LEVOPHED AT 4 MCG/MIN. UO OLIGURIC. SUCTIONED AND TURNED Q2 HRS AND PRN. REMAINS IN GUARDED CONDITION.
[2019-07-17 06:23] LABS: CALCIUM 8.2 mg/dL (8.4-11.0); CREATININE 0.39 mg/dL (0.55-1.30); POTASSIUM 3.2 mmol/L (3.5-5.1)
--- NOTE | 2019-07-17 08:00 | NUR ---
NOTICE PATIENT FACE HAD IMPROVED COLOR PINK OTHER PART OF THE BODY REMAINED RED COLOR ,ALSO NOTICE SMALL AMOUNT OF DRAINAGE ON THE PEG TUBE SITE PATIENT REMAINED NPO USED TUBE FOR MEDICATION ONLY, PATIENT IS ON LEVOPHED DRIP AT 4 MCG WILL TRIED TO WEAN 1100 WOUND CARE BEING DONE NOTICE PATIENT WOULD PULL LEG RESPOND TO DEEP PAIN ALSO PATIENT WOULD OPEN EYES WHEN VOICE WAS HEAR AND TRIED TO TRACK TO THE SOUND MOTHER AT BEDSIDE 1330 K+ RIDDER WAS HUNG 40 MCG IN 250NS TO INFUSED OVER 4 HR, STABLE PATIENT IS TO START ON TPN AND LIPID THIS EVEN STABLE NOTICE NO SEIZURE ACTIVITY 1730 LEVOPHED WAS DOWN TO 2 MCG AND TURN OFF, THIS LASTED FOR 30 MIN 1800 LEVOPHED DRIP WAS TURN BACK ON BP 86/45 WILL CONTINUED WITH PLAN OF CARE, STABLE
[2019-07-17] MEDS: IPRATROPIUM/ALBUTEROL SULFATE 3 ML AMPUL.NEB (DUONEB) INH SCH ×4 (08:20→19:29)
[2019-07-17] MEDS: CARVEDILOL 3.125 MG TABLET (COREG) PO SCH ×2 (09:00→21:45)
[2019-07-17] MEDS: DOCUSATE SODIUM 100 MG CAPSULE PO SCH (09:59)
[2019-07-17] MEDS: FUROSEMIDE 40 MG/4 ML VIAL IVP SCH (09:59)
[2019-07-17] MEDS: PHENobarbital 30 MG TABLET PO SCH ×2 (10:00→21:46)
[2019-07-17] MEDS: BETHANECHOL CHLORIDE 25 MG TABLET (URECHOLINE) GT SCH ×2 (10:01→21:44)
[2019-07-17] MEDS: VALPROIC ACID ORAL SYRUP 250 MG/5 ML UDC GT SCH ×3 (10:01→21:43)
[2019-07-17] MEDS: LevETIRAcetam 500 MG/5 ML UDC ORAL LIQUID GT SCH ×2 (10:02→21:44)
[2019-07-17] MEDS: BALSAM PERU/CASTOR OIL 60 GM OINT...G. TP SCH (10:05)
[2019-07-17] MEDS: NYSTATIN 15 GM TOPICAL POWDER TP SCH ×2 (10:05→21:47)
[2019-07-17] MEDS: APIXABAN 2.5 MG TABLET PO SCH ×2 (10:05→21:45)
[2019-07-17] MEDS: COLISTIMETHATE SODIUM 75 MG in NS 50 ML IV SCH ×2 (10:11→21:44)
[2019-07-17] MEDS ORDERED: *TPN PER PHARMACY XX PRN (11:15)
[2019-07-17] MEDS ORDERED: POTASSIUM CHLORIDE 40 MEQ in NS 250 ML IV ONE (11:15)
[2019-07-17] MEDS ORDERED: DEXTROSE 50% JECT 50 ML DISP.SYRIN IVP PRN (11:15)
--- NOTE | 2019-07-17 11:37 | NUR ---
Nutrition F/U RD reviewed pt's current EMR including diet Hx, physician notes, nursing notes, pertinent labs/meds/procedures, care trends and care activity. Current Nutrition Support: Jevity 1.5 ar 40ml/hr, Free Water Flush at 50ml Q6H via GT x 4 days (active order but held per RN) Subjective information: Pt seen in bed, w/ RN at bedside providing wound care. No EN infusing at time of RD visit. IV infusing. Per Dr. Herrera's notes 07/16/2019: There is some minimal excoriation on the outside of the GT, very minimal leakage. Concer about small infection around G-C fistula site and will recommend bowel rest for 1 week, continue abx. TPN for the meantime. MD to follow closely about the appropriate timing to restart GT feeds. RD notified zinc furnace charger of MD's plan since yesterday to get order to start TPN. TPN notification received 30mins after. RD s/w Riley pharmD re: TPN plan. Discontinue order for EN regimen for now. Skin Integrity Comment: Wyatt Score 10 RD reviewed Wound Assessment (07/13/19) Significant findings of unstageable pressure ulcer: right and left distal lateral lower extremity, left heel NEW Estimated Energy Expenditure (kcals/day) 1680 kcal/day (PSU for critical illness on vent) Estimated Protein Required (g/day) 68-90/day (1.5-2g/kg based on IBW for critical illness/sepsis) Estimated Fluid Required (l/day) 1.1-1.4L/day based on 25-30ml/kg IBW for maintenance Problem/Etiology/Signs/Symptoms Increased nutrient needs related to compromised skin integrity as evidenced by unstageable pressure ulcers to the right and left distal lateral lower extremity and left heel. (*ongoing) Inadequate EN infusion related to leakage at gastrostomy site as evidenced by TF currently held and need for TPN support. (*new) Expected Outcomes/Goals Monitor TPN tolerance and intake w/ goal of pt meeting at least 80% of estimated nutritional needs, labs trending WNL, normal GI function, skin integrity/wt maintenance. Dietitian Recommendations *Recommend: D30% AA10% at 70ml/hr (initial rate of 42ml, increase to goal rate of 70ml), IL20% at 10ml/hr via central line. Goal rate will provide: 1673 kcal, 84 gm protein and GIR 2.8gm CHO/kg/min Goal will meet: 96% of estimated calorie needs and 93% of upper end of estimated protein needs. Follow Up High Risk: F/U in 2-3days LUCY s/w Riley re: TPN rec at 1150 07/17/2019. LUCY CEDILLO
--- NOTE | 2019-07-17 11:54 | NUR ---
Dietitian Recommendations *Recommend: D30% AA10% at 70ml/hr (initial rate of 42ml, increase to goal rate of 70ml), IL20% at 10ml/hr via central line. Goal rate will provide: 1673 kcal, 84 gm protein and GIR 2.8gm CHO/kg/min Goal will meet: 96% of estimated calorie needs and 93% of upper end of estimated protein needs. Please see Nutrition F/U note for details. MAMADOU, RD
[2019-07-17] MEDS: FLUCONAZOLE 100 mg/ NS 50 ML IV SCH (12:30)
--- NOTE | 2019-07-17 14:40 | NUR ---
SS NOTES/DCP: FIELD SALES TRAINER was referred by CM to see patient for DCP. Demographic information confirmed (NOK: Von Lozoya, brother @ [phone]). FIELD SALES TRAINER met with patient and mother at bedside, mom is Maori speaking only but requested for brother Von to be called for collateral. Pt is a 43 y/o single female who came in from [facility] for pneumonia. Pt is currently a resident at [facility] and has been living there for 5 months. Pt lived at home prior to her stroke in April 2018; after multiple hospitalizations, her condition is requiring more nursing care prompting them to bring patient to SNF. Von stated that pt had hydrocephalus when she was 2 years old and became more mentally disabled at 14 and worsen after the stroke. Pt receives social security from her father's halfway of $700/month. Prior to SNF placement, mother/conservator received 210 hrs/month from [facility]. Pt is also handled by [facility]. Von's goal is to bring patient back home when she stabilizes, but if SNF is required, the family would want her to go back to [facility]. Mother,Consulelo will make medical decisions for patient. No further SS needs identified at this time, but will remain available when needed.
--- NOTE | 2019-07-17 20:00 | NUR ---
TRACH TO VENT. DOES NOT FOLLOW COMMANDS. SUCTIONED WITH MOD AMOUNT OF THICK CREAMY MUCUS OBTAINED. ORAL CARE GIVEN. GT CLAMPED. SLATER CATH PATENT DRAINING CLOUDY MAXI URINE TO GRAVITY. . MARA PICC LINE DB D/I. ON LEVOPHED AT 2 MCG/MIN. CONTACT ISOLATION OBSERVED.
[2019-07-17] MEDS ORDERED: CALCIUM CHLORIDE IV SCH ×8 (21:00)
[2019-07-17] MEDS ORDERED: POTASSIUM CHLORIDE IV SCH ×8 (21:00)
[2019-07-17] MEDS ORDERED: [UNRECOGNIZED DRUG - OTHER] IV SCH ×8 (21:00)
[2019-07-17] MEDS ORDERED: TPN CENTRAL IV SCH ×8 (21:00)
--- NOTE | 2019-07-17 21:00 | NUR ---
SBP HOVERING IN THE 80'S, LEVOPHED INCREASED TO 4 MCG/MIN.
[2019-07-17] MEDS: FAT EMULSIONS 250 ML IV SCH (21:13)
--- NOTE | 2019-07-17 22:00 | NUR ---
HS CARE GIVEN .
[2019-07-17] MEDS: INSULIN REGULAR, HUMAN 100 UNITS/ML, 10 ML VIAL (humuLIN R) SUBCUT PRN (23:58)
[2019-07-18] VITALS (33 sets, daily range): BP systolic 98–137
--- NOTE | 2019-07-18 | NUR ---
SUCTIONED. TURNED. ORAL CARE DONE. ACCU-CHEK 165, 2 UNITS REGULAR INSULIN SQ GIVEN. GT FLUSHED WITH 50CC H2O.
[2019-07-18] MEDS: D5/0.45 NS 1,000 ML IV SCH (03:01)
--- NOTE | 2019-07-18 04:00 | NUR ---
AM CARE. ORAL CARE GIVEN. SUCTIONED. TURNED.
--- NOTE | 2019-07-18 06:00 | NUR ---
ACCU-CHEK 146, NO INSULIN DUE PER SLIDING SCALE COVERAGE. UO GOOD. GT FLUSHED WITH 50CC H2O. SUCTIONED AND TURNED Q2 HRS AND PRN. ORAL CARE DONE Q 4 HRS. NO SIGNIFICANT CHANGES IN STATUS. REMAINS IN GUARDED CONDITION.
[2019-07-18] MEDS: INSULIN REGULAR, HUMAN 100 UNITS/ML, 10 ML VIAL (humuLIN R) SUBCUT PRN ×2 (06:27→19:23)
[2019-07-18 06:53] LABS: BASOPHILS % (AUTO) 0.3 % (0.0-2.0); EOSINOPHILS # (AUTO) 0.8 K/uL (0.0-0.4); EOSINOPHILS % (AUTO) 7.7 % (0.0-4.0); LYMPHOCYTES # (AUTO) 2.4 K/uL (1.0-5.5); LYMPHOCYTES % (AUTO) 23.2 % (20.5-51.5); MEAN CORPUSCULAR HEMOGLOBIN 34 pg (27-31); MEAN CORPUSCULAR HGB CONC 33 % (32-36); MEAN CORPUSCULAR VOLUME 103 fL (79.0-98.0); MONOCYTES # (AUTO) 1.3 K/uL (0.0-1.0); MONOCYTES % (AUTO) 12.6 % (1.7-9.3); NEUTROPHILS # (AUTO) 5.8 K/uL (1.8-7.7); NEUTROPHILS % (AUTO) 56.2 % (40.0-70.0); PLATELET COUNT (AUTO) 346 K/uL (130-430); RED BLOOD CELL COUNT(AUTO) 2.93 MIL/uL (4.2-6.2); RED CELL DISTRIBUTION WIDTH 15.4 % (9.0-15.0); WHITE BLOOD COUNT (AUTO) 10.3 K/uL (4.8-10.8)
[2019-07-18 07:10] LABS: CALCIUM 8.3 mg/dL (8.4-11.0); CREATININE 0.4 mg/dL (0.55-1.30); PHOSPHORUS 2.7 mg/dL (2.7-4.5)
--- NOTE | 2019-07-18 08:00 | NUR ---
PATIENT ON LEVOPHED DRIP AT 2MCG 128/54 DECIDED TO TURN OFF THIS LASTED FOR 30 MIN BP DOWN TO 86/54 HR 90, LEVOPHED DRIP WAS TURN BACK ON WILL TITRATE LATER NOTICE THE PATIENT WAS MOVING LEG AND OCCASIONAL UPPER ARM AND WILL OPEN EYES , PATIENT IS MORE ALERT NOTICE LEAKAGE FROM THE PEG SITE NO BLEEDING OR ANY OF THE MEDICATION , LOOK LIKE WATERY DRAINAGES PATIENT HAD LOW K+ 3.0 K+ RIDDER OF 40 MCG IN 250 NS TO INFUSED OVER 4 HR, PATENT WAS UP AT 12N00N TPN AND LIPID INFUSED WELL IVF CHANGED TO NS AT 40 ML/HR 1300 MOTHER AT THE PATIENT BEDSIDE , PATIENT HAD NO TEMP 1500CCHO BATH WAS GIVEN ALL WOUND WERE PICTURES AND TREAT , NOTICE THE LEFT HEEL HAS AN SMALL AMOUNT OF BLEEDING ALSO NOTICE MANY BLISTER OVER THE BODY PICTURE WERE TAKEN , ONLY LAST IV MEDICATION IS DIFLUCAN NEED TO CHECK IN THE AM WITH THE INFECTION DOCTOR, STABLE TITRATE LEVOPHED SLOWLY AT 1200 FROM 4MCG TO 0NE MCG AT 1800 WILL LET THE NEXT SHIFT TO CONTINUED MONITOR THE BLOOD PRESSURE WILL CONTINUED WITH PLAN OF CARE, STABLE
[2019-07-18] MEDS: IPRATROPIUM/ALBUTEROL SULFATE 3 ML AMPUL.NEB (DUONEB) INH SCH ×4 (08:04→21:24)
[2019-07-18] MEDS: metroNIDAZOLE 500 mg/NS 100 ML IV SCH ×2 (08:19→14:55)
[2019-07-18] MEDS: CARVEDILOL 3.125 MG TABLET (COREG) PO SCH ×2 (09:00→21:09)
[2019-07-18] MEDS: DOCUSATE SODIUM 100 MG CAPSULE PO SCH (09:29)
[2019-07-18] MEDS: PHENobarbital 30 MG TABLET PO SCH (09:30)
[2019-07-18] MEDS: COLISTIMETHATE SODIUM 75 MG in NS 50 ML IV SCH ×2 (09:30→21:17)
[2019-07-18] MEDS: VALPROIC ACID ORAL SYRUP 250 MG/5 ML UDC GT SCH ×2 (09:31→21:13)
[2019-07-18] MEDS: LevETIRAcetam 500 MG/5 ML UDC ORAL LIQUID GT SCH ×2 (09:32→21:06)
[2019-07-18] MEDS: FUROSEMIDE 40 MG/4 ML VIAL IVP SCH (09:33)
[2019-07-18] MEDS: BETHANECHOL CHLORIDE 25 MG TABLET (URECHOLINE) GT SCH ×2 (09:33→21:08)
[2019-07-18] MEDS: APIXABAN 2.5 MG TABLET PO SCH ×2 (09:38→21:08)
[2019-07-18] MEDS: NYSTATIN 15 GM TOPICAL POWDER TP SCH (09:43)
[2019-07-18] MEDS: BALSAM PERU/CASTOR OIL 60 GM OINT...G. TP SCH (09:43)
[2019-07-18] MEDS ORDERED: HYDROCORTISONE SOD SUCC 100 MG/2 ML VIAL IVP ONE (09:45)
[2019-07-18] MEDS ORDERED: POTASSIUM CHLORIDE 40 MEQ in NS 250 ML IV ONE (10:00)
[2019-07-18] MEDS: NACL 0.9% 1,000 ML IV SCH (11:50)
[2019-07-18] MEDS ORDERED: NOREPINEPHRINE 4 MG/4 ML VIAL IV ONE (14:48)
[2019-07-18] MEDS: FLUCONAZOLE 100 mg/ NS 50 ML IV SCH (15:02)
--- NOTE | 2019-07-18 20:37 | NUR ---
Assume care: Initial assessment done at this time.Patient awake respond to pain stimuli w/ good eye tracking. Tolerating vent settings well. AC 16 TV400 FIO2 50 PEEP 5 . 02 sat 96 %to 100%.Portex. Tracheal suctioning done w/ small amt. of thin yellowish secretions obtained . oral care done. Sinus rhythm on the monitor . Remains on levophed 1 mcg/min = 3.7ml for B/P support. Picc line to RT. bicep intact patent. No swelling noted at this time. HOB up 35 degrees to prevent for aspiration. GT intact. still w/ leaking around the site w/ drsg. intact. clean and dry at this time. W/ hypoactive bowel sounds. We'll continue to monitor.
[2019-07-18] MEDS ORDERED: CALCIUM CHLORIDE IV SCH ×10 (21:00)
[2019-07-18] MEDS ORDERED: [UNRECOGNIZED DRUG - OTHER] IV SCH ×10 (21:00)
[2019-07-18] MEDS ORDERED: POTASSIUM CHLORIDE IV SCH ×10 (21:00)
[2019-07-18] MEDS ORDERED: TPN CENTRAL IV SCH ×10 (21:00)
[2019-07-18] MEDS: POTASSIUM CHLORIDE 20 MEQ TAB.PRT.SR PO SCH (21:10)
[2019-07-18] MEDS: HYDROCORTISONE SOD SUCC 100 MG/2 ML VIAL IVP SCH (21:10)
[2019-07-18] MEDS: FAT EMULSIONS 250 ML IV SCH (21:16)
[2019-07-19] VITALS (35 sets, daily range): BP systolic 93–146
--- NOTE | 2019-07-19 | NUR ---
REPOSITIONED FOR COMFORT, SUBGLOTTIC SUCTIONING DONE. W/ SMALL AMT OF THICK YELLOWISH SECRETIONS OBTAINED . ACCU CHEK RESULT 167 . 2 UNITS REG. INSULIN ADMINISTERED SQ. VSS.
[2019-07-19] MEDS: INSULIN REGULAR, HUMAN 100 UNITS/ML, 10 ML VIAL (humuLIN R) SUBCUT PRN ×3 (00:30→13:01)
[2019-07-19] MEDS: metroNIDAZOLE 500 mg/NS 100 ML IV SCH ×2 (00:35→08:12)
[2019-07-19] MEDS: PHENobarbital 30 MG TABLET PO SCH ×3 (00:38→21:29)
[2019-07-19] MEDS: NYSTATIN 15 GM TOPICAL POWDER TP SCH ×3 (00:40→21:29)
--- NOTE | 2019-07-19 04:00 | NUR ---
B/P 146/78, LEVOPHED TURNED OFF AT THIS TIME. HAS 1 BM COLOR LIGHT BROWN SOFT STOOLS. . GOOD UMANG-CARE AND F/C CARE DONE.BACK, &ORAL CARE DONE . Z-GUARD TO COCCYX AND BUTTOCKS TO MAINTAIN GOOD KIN INTEGRITY. PATIENT REMAINS EDEMATOUS. NOTED SMALL BLISTERS TO RT. BREAST. PICTURE TAKEN.VSS.
--- NOTE | 2019-07-19 06:27 | NUR ---
NO SIGNIFICANT CHANGE IN CONDITION NOTED . SLEPT W/ LONG INTERVALS AT NOC. , NO SXS OF RESPIRATORY DISTRESS NOTED. BS.RESULT 169 2UNITS REGULAR INSULIN GIVEN . VSS. ALL NEEDS ANTICIPATED MUCH POSSIBLE . SR ON THE MONITOR . WE'LL ENDORSE PATIENT TO AM RN W/ VSS.
[2019-07-19 06:51] LABS: ALBUMIN 1.9 g/dL (3.4-4.8); CALCIUM 8.4 mg/dL (8.4-11.0); CREATININE 0.4 mg/dL (0.55-1.30); PHOSPHORUS 2.3 mg/dL (2.7-4.5); POTASSIUM 3.5 mmol/L (3.5-5.1); TOTAL BILIRUBIN 0.2 mg/dL (0.0-1.0)
[2019-07-19 06:55] LABS: BASOPHILS # (AUTO) 0.1 K/uL (0.0-0.2); BASOPHILS % (AUTO) 0.8 % (0.0-2.0); EOSINOPHILS # (AUTO) 0.4 K/uL (0.0-0.4); EOSINOPHILS % (AUTO) 4.3 % (0.0-4.0); HEMATOCRIT 30.7 % (36-48); HEMOGLOBIN 10.6 g/dL (12.0-16.0); LYMPHOCYTES # (AUTO) 2.5 K/uL (1.0-5.5); LYMPHOCYTES % (AUTO) 26.6 % (20.5-51.5); MEAN CORPUSCULAR HEMOGLOBIN 36 pg (27-31); MEAN CORPUSCULAR HGB CONC 35 % (32-36); MEAN CORPUSCULAR VOLUME 103 fL (79.0-98.0); MONOCYTES # (AUTO) 0.5 K/uL (0.0-1.0); MONOCYTES % (AUTO) 5.2 % (1.7-9.3); NEUTROPHILS # (AUTO) 5.9 K/uL (1.8-7.7); NEUTROPHILS % (AUTO) 63.1 % (40.0-70.0); PLATELET COUNT (AUTO) 440 K/uL (130-430); RED BLOOD CELL COUNT(AUTO) 2.98 MIL/uL (4.2-6.2); RED CELL DISTRIBUTION WIDTH 16.1 % (9.0-15.0); WHITE BLOOD COUNT (AUTO) 9.3 K/uL (4.8-10.8)
--- NOTE | 2019-07-19 07:30 | NUR ---
OPENING NOTE: RECEIVED REPORT FROM [facility] DMITRI SHIELDS. PATIENT RESTING IN BED WITH EYES CLOSED, ABLE TO OPEN EYES SPONTANEOUSLY. PATIENT TRACH TO VENT AND CHECKED VENT SETTINGS PER MD ORDERS CHECKED AT BEDSIDE. NOTED PICC LINE ON MARA, NO ACUTE SIGNS OF BLEEDING, REDNESS, OR SWELLING TO SITE. NOTED SLATER CATH, POSITIONED TO DRAIN TOWARDS GRAVITY. NOTED G-TUBE SITE, PER MD CLAMPED AT THIS TIME. NO ACUTE SIGNS OF RESP DISTRESS, NO SOB. BREATHING EVEN AND UNLABORED. SAFETY PRECAUTIONS IMPLEMENTED. WILL CONTINUE TO MONITOR.
[2019-07-19] MEDS: VALPROIC ACID ORAL SYRUP 250 MG/5 ML UDC GT SCH ×3 (08:12→21:33)
[2019-07-19] MEDS: LevETIRAcetam 500 MG/5 ML UDC ORAL LIQUID GT SCH ×2 (08:13→21:34)
[2019-07-19] MEDS: DOCUSATE SODIUM 100 MG CAPSULE PO SCH (08:13)
[2019-07-19] MEDS: HYDROCORTISONE SOD SUCC 100 MG/2 ML VIAL IVP SCH ×2 (08:14→21:27)
[2019-07-19] MEDS: FUROSEMIDE 40 MG/4 ML VIAL IVP SCH (08:14)
[2019-07-19] MEDS: POTASSIUM CHLORIDE 20 MEQ TAB.PRT.SR PO SCH ×2 (08:18→21:28)
[2019-07-19] MEDS: BALSAM PERU/CASTOR OIL 60 GM OINT...G. TP SCH (08:19)
[2019-07-19] MEDS: CARVEDILOL 3.125 MG TABLET (COREG) PO SCH ×2 (08:20→21:00)
[2019-07-19] MEDS: BETHANECHOL CHLORIDE 25 MG TABLET (URECHOLINE) GT SCH ×2 (08:21→21:30)
[2019-07-19] MEDS: COLISTIMETHATE SODIUM 75 MG in NS 50 ML IV SCH ×2 (08:22→21:40)
[2019-07-19] MEDS: APIXABAN 2.5 MG TABLET PO SCH ×2 (09:27→21:30)
[2019-07-19] MEDS: NACL 0.9% 1,000 ML IV SCH (09:28)
[2019-07-19] MEDS ORDERED: GASTROGRAFIN 120 ML ONE (09:37)
[2019-07-19] MEDS: IPRATROPIUM/ALBUTEROL SULFATE 3 ML AMPUL.NEB (DUONEB) INH SCH ×2 (09:51→15:00)
[2019-07-19] MEDS ORDERED: NS IV ONE (10:00)
[2019-07-19] MEDS ORDERED: K PHOS IV ONE (10:00)
--- NOTE | 2019-07-19 10:00 | NUR ---
ROUNDING: NO CHANGE IN PATIENT STATUS, CONTINUE TO MONITOR.
[2019-07-19] MEDS ORDERED: NA PHOS 15 MM in NS 250 ML IV ONE (10:15)
--- NOTE | 2019-07-19 12:00 | NUR ---
ROUNDING: NO CHANGE IN PATIENT STATUS. PATIENT OPENS EYES FREQUENTLY. NO ACUTE SIGNS OF RESP DISTRESS, NO SOB. BREATHING EVEN AND UNLABORED. SLATER CATH INTACT AND POSITIONED TO DRAIN TOWARDS GRAVITY. SAFETY PRECAUTIONS IMPLEMENTED. CONTINUE TO MONITOR.
--- NOTE | 2019-07-19 12:16 | NUR ---
Paged Dr. Herrera regarding results. Spoke with exchange.
--- NOTE | 2019-07-19 12:32 | NUR ---
DC PLANNING Per caryl Nicolas corporate meeting planner, Ronna Tiffany Travon needs auth from insurance. Called & left msg w Kathi Lewis @ ,ph [phone], that need auth for LTAC. Awaiting call back from Kathi. Addendum: 07/19/19 at 1346 by Margie Jacobs RN Received call back from Kathi @ , informed of reason for LTAC, states to fax order/pt info. After speaking w Kathi, per Dr Nguyen's progress notes "Gastrografin study normal. GI may resume feedings today. If she tolerated feedings, she may be dc'd back to snf." Called & left w Dr Nguyen to return call to clarify dc plan. Called &spoke w Kathi, states will f/u tomorrow to see if pt shannen GTF, no auth for LTAC today.
[2019-07-19] MEDS: FLUCONAZOLE 100 mg/ NS 50 ML IV SCH (12:55)
--- NOTE | 2019-07-19 13:00 | NUR ---
ENDORSED: ENDORSED PLAN OF CARE TO RECEIVING COURTNEY RIZVI. ALL QUESTIONS ANSWERED.
--- NOTE | 2019-07-19 14:30 | NUR ---
NURSING. PT'S MOTHER AND GRANDMOM AT BEDSIDE, EXPLAINED TO FAMILY PLAN OF CARE, THEY STEPPED OUT OF THE ROOM. WOUND DRESSINGS REMOVED FROM BOTH LOWER EXTREMITIES AND BUTTOCKS, SKIN TREATMENT DONE ORDERED, CLEANSED WOUND WITH SALINE, AND PROPER WOUND OINTMENT APPLIED.
--- NOTE | 2019-07-19 18:30 | NUR ---
DIET. FEEDING VIA G TUBE INITIATED AT 40 ML PER HR ORDERED. TPN/LIPIDS OFF.
--- NOTE | 2019-07-19 20:26 | NUR ---
Trach to VENTILATOR suction moderate amount of white sputum minimal VENT alarming noted HOB elevated chest movement shallow also symmetrical 02 SAT 100 % comfort measures implemented / .
--- NOTE | 2019-07-19 20:35 | NUR ---
TURNING & Repositioning on schedule OFF LOADING with PILLOWS , HEELS FLOATING comfort measures implemented NO SOB ON EXERTION position change tolerated .
[2019-07-19] MEDS ORDERED: CALCIUM CHLORIDE IV SCH ×10 (21:00)
[2019-07-19] MEDS ORDERED: TPN CENTRAL IV SCH ×10 (21:00)
[2019-07-19] MEDS ORDERED: [UNRECOGNIZED DRUG - OTHER] IV SCH ×10 (21:00)
[2019-07-19] MEDS ORDERED: POTASSIUM CHLORIDE IV SCH ×10 (21:00)
[2019-07-20] VITALS (24 sets, daily range): BP systolic 94–133
--- NOTE | 2019-07-20 02:09 | NUR ---
BP 107/66 HR 64 BPM RR 22 02 SAT 100 % ON MECHANICAL VENTILATOR HOB KEPT ELEVATED NO USE OF ACCESSORY MUSCLES comfort measures implemented tolerated .
--- NOTE | 2019-07-20 03:12 | NUR ---
Large loose stool noted bed bath given linin change implemented kept clean also dry as needed HOB kept elevated trach to ventilator position change tolerated .
--- NOTE | 2019-07-20 04:33 | NUR ---
KEPPRA 1500 MG PER GT ADMINISTER FOR SEIZURE CONTROL & EFFECTIVE , side Rails padded .
[2019-07-20 06:05] LABS: BASOPHILS % (AUTO) 0.3 % (0.0-2.0); HEMATOCRIT 36.1 % (36-48); HEMOGLOBIN 11.6 g/dL (12.0-16.0); LYMPHOCYTES % (AUTO) 22.1 % (20.5-51.5); MEAN CORPUSCULAR HEMOGLOBIN 34 pg (27-31); MEAN CORPUSCULAR HGB CONC 32 % (32-36); MEAN CORPUSCULAR VOLUME 104 fL (79.0-98.0); MONOCYTES # (AUTO) 0.8 K/uL (0.0-1.0); MONOCYTES % (AUTO) 6.2 % (1.7-9.3); NEUTROPHILS # (AUTO) 9.7 K/uL (1.8-7.7); NEUTROPHILS % (AUTO) 71.4 % (40.0-70.0); PLATELET COUNT (AUTO) 364 K/uL (130-430); RED BLOOD CELL COUNT(AUTO) 3.47 MIL/uL (4.2-6.2); RED CELL DISTRIBUTION WIDTH 15.6 % (9.0-15.0); WHITE BLOOD COUNT (AUTO) 13.6 K/uL (4.8-10.8)
[2019-07-20 06:28] LABS: CALCIUM 8.3 mg/dL (8.4-11.0); CREATININE 0.31 mg/dL (0.55-1.30); PHOSPHORUS 3.2 mg/dL (2.7-4.5); POTASSIUM 3.7 mmol/L (3.5-5.1)
--- NOTE | 2019-07-20 07:15 | NUR ---
Opening Note Patient report received via SBAR from endorsing RN
[2019-07-20] MEDS: IPRATROPIUM/ALBUTEROL SULFATE 3 ML AMPUL.NEB (DUONEB) INH SCH ×3 (07:30→15:10)
--- NOTE | 2019-07-20 07:30 | NUR ---
Round Dr. Aquino at bedside assessing patient, no new orders
--- NOTE | 2019-07-20 08:00 | NUR ---
Nursing Note Patient lying in bed with eyes open, opens eyes spontaneously. Patient is sinus rhythm on the monitor, edema noted in bilateral upper/lower extremities, S1/S2 heart sounds. PICC present in right upper arm running NS at 40mL/hr, site is clean, dry, intact. 22G IV present in left upper arm, saline locked, flushes easily. Patient is trached to vent, AC 16, TV 400, FiO2: 40%, Peep 5, Ronchi present in upper lobes, crackles in lower lobes, chest rise is symmetrical. G-tube present, Jevity running at 40mL/hr, site is clean,intact, hypoactive bowel sounds present in all 4 quadrants. Rose catheter is draining to gravity, napoleon urine noted. Dressings present on lower extremities and sacrum, clean and dry. Bed is in lowest position, HOB elevated to 30 degrees
[2019-07-20] MEDS: COLISTIMETHATE SODIUM 75 MG in NS 50 ML IV SCH (08:59)
[2019-07-20] MEDS: DOCUSATE SODIUM 100 MG CAPSULE PO SCH (09:00)
--- NOTE | 2019-07-20 09:00 | NUR ---
MD Round Dr. Nguyen at bedside assessing patient, physician entered orders for discharge to SNF
[2019-07-20] MEDS: CARVEDILOL 3.125 MG TABLET (COREG) PO SCH (09:01)
[2019-07-20] MEDS: HYDROCORTISONE SOD SUCC 100 MG/2 ML VIAL IVP SCH (09:01)
[2019-07-20] MEDS: FUROSEMIDE 40 MG/4 ML VIAL IVP SCH (09:02)
[2019-07-20] MEDS: PHENobarbital 30 MG TABLET PO SCH (09:04)
[2019-07-20] MEDS: LevETIRAcetam 500 MG/5 ML UDC ORAL LIQUID GT SCH (09:04)
[2019-07-20] MEDS: POTASSIUM CHLORIDE 20 MEQ TAB.PRT.SR PO SCH (09:04)
[2019-07-20] MEDS: BETHANECHOL CHLORIDE 25 MG TABLET (URECHOLINE) GT SCH (09:05)
[2019-07-20] MEDS: BALSAM PERU/CASTOR OIL 60 GM OINT...G. TP SCH (09:05)
[2019-07-20] MEDS: NYSTATIN 15 GM TOPICAL POWDER TP SCH (09:05)
[2019-07-20] MEDS: VALPROIC ACID ORAL SYRUP 250 MG/5 ML UDC GT SCH ×2 (09:05→16:31)
[2019-07-20] MEDS: APIXABAN 2.5 MG TABLET PO SCH (09:06)
[2019-07-20] MEDS: NACL 0.9% 1,000 ML IV SCH (09:45)
--- NOTE | 2019-07-20 10:30 | NUR ---
Nursing Note Patient provided oral care and suctioning. Patient tolerated well, patient repositioned
--- NOTE | 2019-07-20 11:57 | NUR ---
Discharge Planning: DCP faxed to Malick Cordova ([phone] p [phone]) DCP waiting for Rigo to call, patients will be moved to accommodate.DCP to follow up.
--- NOTE | 2019-07-20 12:00 | NUR ---
Nursing Note Patient repositioned, oral care and sanctioning performed. Right upper arm PICC dressing changed using sterile technique, site is clean and intact. Patient tolerated well
[2019-07-20] MEDS: FLUCONAZOLE 100 mg/ NS 50 ML IV SCH (12:15)
--- NOTE | 2019-07-20 14:00 | NUR ---
Nursing Note Patient repositioned in bed and provided oral care, patient tolerated well.
--- NOTE | 2019-07-20 16:02 | NUR ---
Discharge Planning: DCP spoke to Jaleel at [facility] ([phone]) [facility], transportation arranged with [employer] ([phone]) 6:30pm P/U Auth#[id number]. Nurse made aware and patient packet taken to nurse station.
--- NOTE | 2019-07-20 17:00 | NUR ---
Nursing Note Wound care performed on dressings, patient cleaned, linens changed. Patient tolerated well
--- NOTE | 2019-07-20 18:45 | NUR ---
D/C Patient Transport given medication reconciliation form and D/C instructions. Exit Care provided. Patient in stable condition, ID band removed. All belongings sent with patient. Patient to be transported by [facility] to [facility], room 44A. Complete patient report given to receiving nurse DMITRI Bales.
== END 2019-07-20 18:45 | DRG 720 ==
LOC: SED 20:20 → SIC 22:24
PROVIDERS: ADMIT General Practice; ATTEND General Practice
PROC: 02HV33Z Insertion of Infusion Device into Superior Vena Cava, Percutaneous Approach (ICD-10-PCS; principal; 2019-07-13)
PROC: 5A1955Z Respiratory Ventilation, Greater than 96 Consecutive Hours (ICD-10-PCS; 2019-07-13)
DX: A41.9 Sepsis, unspecified organism (principal); J96.20 Acute and chronic respiratory failure, unspecified whether with hypoxia or hypercapnia; J69.0 Pneumonitis due to inhalation of food and vomit; R65.21 Severe sepsis with septic shock; G82.50 Quadriplegia, unspecified; E43 Unspecified severe protein-calorie malnutrition; J95.851 Ventilator associated pneumonia; J15.9 Unspecified bacterial pneumonia; I50.43 Acute on chronic combined systolic (congestive) and diastolic (congestive) heart failure; G93.40 Encephalopathy, unspecified; Z99.11 Dependence on respirator [ventilator] status; Z93.0 Tracheostomy status; E87.2 Acidosis; G91.9 Hydrocephalus, unspecified; J44.0 Chronic obstructive pulmonary disease with (acute) lower respiratory infection; E87.0 Hyperosmolality and hypernatremia; N39.0 Urinary tract infection, site not specified; E87.5 Hyperkalemia; Y84.8 Other medical procedures as the cause of abnormal reaction of the patient, or of later complication, without mention of misadventure at the time of the procedure; E66.01 Morbid (severe) obesity due to excess calories; D64.9 Anemia, unspecified; Y95 Nosocomial condition; E87.6 Hypokalemia; G40.909 Epilepsy, unspecified, not intractable, without status epilepticus; I73.9 Peripheral vascular disease, unspecified; R13.10 Dysphagia, unspecified; T42.3X5A Adverse effect of barbiturates, initial encounter; B96.89 Other specified bacterial agents as the cause of diseases classified elsewhere; B96.20 Unspecified Escherichia coli [E. coli] as the cause of diseases classified elsewhere; E88.09 Other disorders of plasma-protein metabolism, not elsewhere classified; Y92.89 Other specified places as the place of occurrence of the external cause; Z86.73 Personal history of transient ischemic attack (TIA), and cerebral infarction without residual deficits; Z98.2 Presence of cerebrospinal fluid drainage device; Z68.41 Body mass index [BMI] 40.0-44.9, adult; Z88.1 Allergy status to other antibiotic agents; Z88.8 Allergy status to other drugs, medicaments and biological substances; Z79.899 Other long term (current) drug therapy; Z88.0 Allergy status to penicillin
CPT/HCPCS: 36415; 36600; 71045; 74240-TC; 80048; 80053; 80164-TC; 80170-TC; 80184-TC; 81000-TC; 82803-TC; 82962; 83036; 83605; 83735-TC; 83880; 84100-TC; 84132-TC; 84134; 84478-TC; 84484; 85007; 85025; 85027; 85610-TC; 85730-TC; 87040-TC; 87070-TC; 87081; 87086; 87186-TC; 87205-TC; 93005; 93306; 94002; 94003; 94640; 96365; 96367; 99291; C1751; J0770; J1030; J1200; J1450; J1580; J1644; J1720; J1815; J1940; J1956; J3475; J3480; J3490; J7030; J7042; J7050; J7060; J7131; J7620; P9046; Q9963; Q9967

== ENCOUNTER 2019-07-20 20:12 | Inpatient (IN) | payer BC ==
[~2019-07-20] VITALS: Ht 152.4 cm; Wt 97.5 kg
[~2019-07-20 20:12] MED LIST: APIX5TAB4 GT; ASCO500T20 PO; BETH25TA10 GT; CARV3.1246 PO; CHLO1LIQ2 MC; CRAN1CAP8 GT; DOCU-144 GT; FAMO40TA7 GT; FURO-149 GT; IPRA3AMP9 INH; KEPI500 IV; MAGN400T10 GT; PEDI0.2517 GT; PHEN20EL8 GT; POTA20TA83 PO; TYLL650 GT; VALP500S4 GT; ZINC500P17 GT
[2019-07-20 20:15] VITALS: BP_SYST 107
[2019-07-20] MEDS ORDERED: LEVOFLOXACIN 500 MG/D5W 100 ML IV ONE (20:30)
[2019-07-20] MEDS ORDERED: NACL 0.9% 1,000 ML IV ONE ×2 (20:30→23:30)
[2019-07-20] MEDS ORDERED: ACETAMINOPHEN 500 MG TABLET PO ONE (21:30)
[2019-07-20] MEDS ORDERED: ACETAMINOPHEN 650 MG SUPP.RECT RC ONE (21:45)
[2019-07-20 21:54] LABS: HEMATOCRIT 37.7 % (36-48); MEAN CORPUSCULAR HEMOGLOBIN 33 pg (27-31); MEAN CORPUSCULAR HGB CONC 32 % (32-36); MEAN CORPUSCULAR VOLUME 105 fL (79.0-98.0); RED CELL DISTRIBUTION WIDTH 15.8 % (9.0-15.0); WHITE BLOOD COUNT (AUTO) 20.7 K/uL (4.8-10.8)
[2019-07-20 22:09] LABS: PLATELET COUNT (AUTO) 364 K/uL (130-430)
[2019-07-20 22:11] LABS: BAND % (MANUAL) 1 % (0-6); BASOPHILS % (MANUAL) 0 % (0-2); EOSINOPHILS % (MANUAL) 0 % (0-7); LYMPHOCYTES % (MANUAL) 28 % (20-46); METAMYELOCYTES % 1 % (0-0); MONOCYTES % (MANUAL) 5 % (0-11)
[2019-07-20 22:20] LABS: CALCIUM 8.6 mg/dL (8.4-11.0); CREATININE 0.36 mg/dL (0.55-1.30); POTASSIUM 4.3 mmol/L (3.5-5.1)
[2019-07-20 22:26] LABS: ALBUMIN 2.2 g/dL (3.4-4.8); TOTAL BILIRUBIN 0.2 mg/dL (0.0-1.0)
[2019-07-21] VITALS (36 sets, daily range): BP systolic 99–149
[2019-07-21] MEDS ORDERED: ONDANSETRON HCL 4 MG/2 ML VIAL IVP PRN
[2019-07-21] MEDS ORDERED: MORPHINE 2 MG/ML INJ. SYRINGE IVP PRN
[2019-07-21] MEDS ORDERED: HYDROcodone/ACETAMIN 7.5-325 MG TAB PO PRN
[2019-07-21] MEDS ORDERED: DOCUSATE SODIUM 100 MG/10 ML UDC PO PRN
[2019-07-21] MEDS ORDERED: NOREPINEPHRINE BITARTRATE 4 MG in NS 246 ML IV SCH ×2
[2019-07-21] MEDS ORDERED: IPRATROPIUM/ALBUTEROL SULFATE 3 ML AMPUL.NEB (DUONEB) INH PRN (00:30)
[2019-07-21] MEDS: IPRATROPIUM/ALBUTEROL SULFATE 3 ML AMPUL.NEB (DUONEB) INH SCH ×7 (00:30→23:57)
[2019-07-21 00:59] LABS: PHOSPHORUS 2.9 mg/dL (2.7-4.5)
[2019-07-21 00:59] LABS: BILIRUBIN,URINE NEGATIVE (NEGATIVE); BLOOD, URINE 1+ (NEGATIVE); CLARITY/URINE CLEAR (CLEAR); COLOR,URINE YELLOW (YELLOW); GLUCOSE,URINE NEGATIVE (NEGATIVE); KETONES,URINE NEGATIVE (NEGATIVE); LEUKOCYTE ESTERASE ,URINE TRACE (NEGATIVE); NITRITE, URINE NEGATIVE (NEGATIVE); PH,URINE 6.5 (5.0-8.0); PROTEIN URINE 1+ (NEGATIVE); UROBILINOGEN,URINE 0.2 (0.2-1.0)
[2019-07-21 01:00] LABS: INR 1.2 (0.8-1.2); PROTHROMBIN TIME 11.8 SECS (9.5-12.5)
[2019-07-21 01:15] LABS: BACTERIA,URINE MODERATE /HPF (None Seen)
[2019-07-21] MEDS ORDERED: MEROPENEM 1 GM VIAL IV ONE (01:27)
[2019-07-21] MEDS: methylPREDNISolone SOD SUCC 40 MG/ML VIAL IVP SCH ×3 (01:40→17:48)
[2019-07-21] MEDS: NACL 0.9% 1,000 ML IV SCH ×2 (01:42→09:21)
[2019-07-21] MEDS: MEROPENEM 1 GM IVPB PREMIX 50 ML IV SCH ×3 (01:42→17:48)
[2019-07-21] MEDS ORDERED: FLU VACC QS2019-20 36MOS UP/PF 60 MCG/0.5 ML SYRINGE I.M. PRN (03:45)
[2019-07-21] MEDS: ACETAMINOPHEN 500 MG TABLET PO PRN ×2 (06:49→23:56)
[2019-07-21] MEDS: levETIRAcetam 500 MG IV PREMIX 100 ML IV SCH ×2 (09:19→21:55)
[2019-07-21] MEDS: APIXABAN 2.5 MG TABLET PO SCH ×2 (09:22→21:57)
[2019-07-21 09:31] LABS: BASOPHILS % (AUTO) 0.2 % (0.0-2.0); HEMATOCRIT 28.2 % (36-48); HEMOGLOBIN 9.2 g/dL (12.0-16.0); LYMPHOCYTES # (AUTO) 2.1 K/uL (1.0-5.5); LYMPHOCYTES % (AUTO) 13.2 % (20.5-51.5); MEAN CORPUSCULAR HEMOGLOBIN 34 pg (27-31); MEAN CORPUSCULAR HGB CONC 33 % (32-36); MEAN CORPUSCULAR VOLUME 104 fL (79.0-98.0); MONOCYTES # (AUTO) 2.1 K/uL (0.0-1.0); MONOCYTES % (AUTO) 13.4 % (1.7-9.3); NEUTROPHILS # (AUTO) 11.5 K/uL (1.8-7.7); PLATELET COUNT (AUTO) 336 K/uL (130-430); RED BLOOD CELL COUNT(AUTO) 2.72 MIL/uL (4.2-6.2); RED CELL DISTRIBUTION WIDTH 15.8 % (9.0-15.0); WHITE BLOOD COUNT (AUTO) 15.7 K/uL (4.8-10.8)
[2019-07-21 09:42] LABS: NEUTROPHILS % (AUTO) 73.2 % (40.0-70.0)
[2019-07-21 09:51] LABS: ALBUMIN 1.7 g/dL (3.4-4.8); CALCIUM 7.2 mg/dL (8.4-11.0); CREATININE 0.33 mg/dL (0.55-1.30); TOTAL BILIRUBIN 0.2 mg/dL (0.0-1.0)
[2019-07-21 09:57] LABS: POTASSIUM 2.8 mmol/L (3.5-5.1)
[2019-07-21] MEDS: KCL 40 mEq in 100 mL (PREMIX) 100 ML IV PRN (12:34)
[2019-07-21] MEDS ORDERED: VANCOMYCIN HCL 1 GM/NS PREMIX 250 ML IV ONE (21:45)
[2019-07-21] MEDS ORDERED: FUROSEMIDE 20 MG TABLET ONE (22:17)
[2019-07-21] MEDS ORDERED: LINEZOLID 300 ML IV ONE (22:45)
[2019-07-21] MEDS: FUROSEMIDE 20 MG TABLET GT SCH (23:28)
[2019-07-22] VITALS (33 sets, daily range): BP systolic 93–131
[2019-07-22] MEDS: NACL 0.9% 1,000 ML IV SCH (00:31)
[2019-07-22] MEDS: methylPREDNISolone SOD SUCC 40 MG/ML VIAL IVP SCH ×3 (01:10→17:32)
[2019-07-22] MEDS: MEROPENEM 1 GM IVPB PREMIX 50 ML IV SCH ×2 (02:17→08:05)
[2019-07-22 06:26] LABS: BASOPHILS # (AUTO) 0.2 K/uL (0.0-0.2); BASOPHILS % (AUTO) 1.6 % (0.0-2.0); EOSINOPHILS % (AUTO) 0.1 % (0.0-4.0); HEMATOCRIT 29.5 % (36-48); HEMOGLOBIN 9.5 g/dL (12.0-16.0); LYMPHOCYTES # (AUTO) 2.2 K/uL (1.0-5.5); MEAN CORPUSCULAR HEMOGLOBIN 33 pg (27-31); MEAN CORPUSCULAR HGB CONC 32 % (32-36); MEAN CORPUSCULAR VOLUME 104 fL (79.0-98.0); MONOCYTES # (AUTO) 1.1 K/uL (0.0-1.0); MONOCYTES % (AUTO) 7.8 % (1.7-9.3); NEUTROPHILS # (AUTO) 10.3 K/uL (1.8-7.7); PLATELET COUNT (AUTO) 347 K/uL (130-430); RED BLOOD CELL COUNT(AUTO) 2.85 MIL/uL (4.2-6.2); RED CELL DISTRIBUTION WIDTH 15.7 % (9.0-15.0); WHITE BLOOD COUNT (AUTO) 13.8 K/uL (4.8-10.8)
[2019-07-22 06:37] LABS: CALCIUM 7.9 mg/dL (8.4-11.0); CREATININE 0.5 mg/dL (0.55-1.30); POTASSIUM 3.7 mmol/L (3.5-5.1)
[2019-07-22 07:37] LABS: NEUTROPHILS % (AUTO) 74.5 % (40.0-70.0)
[2019-07-22] MEDS: IPRATROPIUM/ALBUTEROL SULFATE 3 ML AMPUL.NEB (DUONEB) INH SCH ×5 (07:40→23:50)
[2019-07-22] MEDS: LINEZOLID 300 ML IV SCH ×2 (08:04→21:25)
[2019-07-22] MEDS: levETIRAcetam 500 MG IV PREMIX 100 ML IV SCH ×2 (08:04→21:24)
[2019-07-22] MEDS: FUROSEMIDE 20 MG TABLET GT SCH (08:05)
[2019-07-22] MEDS: APIXABAN 2.5 MG TABLET PO SCH ×2 (08:07→21:24)
[2019-07-22] MEDS ORDERED: FUROSEMIDE 40 MG/4 ML VIAL IVP ONE (08:45)
[2019-07-22] MEDS: ACETAMINOPHEN 500 MG TABLET PO PRN ×2 (09:01→13:37)
[2019-07-22] MEDS ORDERED: NYSTATIN 15 GM TOPICAL POWDER TP ONE (12:00)
[2019-07-22] MEDS: MEROPENEM 1 GM in NS 100 ML IV SCH (17:31)
[2019-07-22] MEDS: NYSTATIN 15 GM TOPICAL POWDER TP SCH (21:26)
[2019-07-23] VITALS (26 sets, daily range): BP systolic 83–131
[2019-07-23] MEDS: MEROPENEM 1 GM in NS 100 ML IV SCH ×3 (01:12→17:11)
[2019-07-23] MEDS: IPRATROPIUM/ALBUTEROL SULFATE 3 ML AMPUL.NEB (DUONEB) INH SCH ×3 (04:17→23:19)
[2019-07-23 06:17] LABS: BASOPHILS # (AUTO) 0.1 K/uL (0.0-0.2); BASOPHILS % (AUTO) 0.5 % (0.0-2.0); EOSINOPHILS # (AUTO) 0.5 K/uL (0.0-0.4); EOSINOPHILS % (AUTO) 3.1 % (0.0-4.0); HEMATOCRIT 29.6 % (36-48); HEMOGLOBIN 9.6 g/dL (12.0-16.0); LYMPHOCYTES # (AUTO) 4.1 K/uL (1.0-5.5); MEAN CORPUSCULAR HEMOGLOBIN 34 pg (27-31); MEAN CORPUSCULAR HGB CONC 33 % (32-36); MEAN CORPUSCULAR VOLUME 103 fL (79.0-98.0); MONOCYTES # (AUTO) 2.6 K/uL (0.0-1.0); MONOCYTES % (AUTO) 14.4 % (1.7-9.3); NEUTROPHILS # (AUTO) 10.5 K/uL (1.8-7.7); PLATELET COUNT (AUTO) 385 K/uL (130-430); RED BLOOD CELL COUNT(AUTO) 2.88 MIL/uL (4.2-6.2); RED CELL DISTRIBUTION WIDTH 16.1 % (9.0-15.0)
[2019-07-23 06:20] LABS: CALCIUM 7.9 mg/dL (8.4-11.0); CREATININE 0.55 mg/dL (0.55-1.30); POTASSIUM 3.9 mmol/L (3.5-5.1)
[2019-07-23 06:25] LABS: WHITE BLOOD COUNT (AUTO) 17.8 K/uL (4.8-10.8)
[2019-07-23] MEDS: APIXABAN 2.5 MG TABLET PO SCH ×2 (08:24→20:24)
[2019-07-23] MEDS: FUROSEMIDE 20 MG TABLET GT SCH (08:25)
[2019-07-23] MEDS: methylPREDNISolone SOD SUCC 40 MG/ML VIAL IVP SCH ×2 (08:26→20:25)
[2019-07-23] MEDS: KCL 40 mEq in 100 mL (PREMIX) 100 ML IV PRN (08:29)
[2019-07-23] MEDS: LINEZOLID 300 ML IV SCH ×2 (08:30→20:26)
[2019-07-23] MEDS: levETIRAcetam 500 MG IV PREMIX 100 ML IV SCH ×2 (08:30→20:25)
[2019-07-23] MEDS: NYSTATIN 15 GM TOPICAL POWDER TP SCH ×2 (08:31→20:25)
[2019-07-23] MEDS: METOPROLOL TARTRATE 25 MG TABLET GT SCH ×2 (08:41→20:24)
[2019-07-23] MEDS: ACETAMINOPHEN 500 MG TABLET PO PRN (10:23)
[2019-07-23] MEDS: NACL 0.9% 1,000 ML IV SCH ×2 (20:27→20:28)
[2019-07-24] VITALS (30 sets, daily range): BP systolic 85–107
[2019-07-24] MEDS: MEROPENEM 1 GM in NS 100 ML IV SCH ×3 (00:41→18:27)
[2019-07-24] MEDS: IPRATROPIUM/ALBUTEROL SULFATE 3 ML AMPUL.NEB (DUONEB) INH SCH ×3 (04:05→22:42)
[2019-07-24 05:55] LABS: BASOPHILS # (AUTO) 0.1 K/uL (0.0-0.2); BASOPHILS % (AUTO) 0.6 % (0.0-2.0); EOSINOPHILS % (AUTO) 0.1 % (0.0-4.0); HEMATOCRIT 28.9 % (36-48); HEMOGLOBIN 9.5 g/dL (12.0-16.0); LYMPHOCYTES # (AUTO) 3.4 K/uL (1.0-5.5); LYMPHOCYTES % (AUTO) 25.5 % (20.5-51.5); MEAN CORPUSCULAR HEMOGLOBIN 34 pg (27-31); MEAN CORPUSCULAR HGB CONC 33 % (32-36); MEAN CORPUSCULAR VOLUME 102 fL (79.0-98.0); MONOCYTES # (AUTO) 1.7 K/uL (0.0-1.0); NEUTROPHILS # (AUTO) 8.2 K/uL (1.8-7.7); NEUTROPHILS % (AUTO) 60.8 % (40.0-70.0); PLATELET COUNT (AUTO) 321 K/uL (130-430); RED BLOOD CELL COUNT(AUTO) 2.82 MIL/uL (4.2-6.2); RED CELL DISTRIBUTION WIDTH 15.7 % (9.0-15.0); WHITE BLOOD COUNT (AUTO) 13.4 K/uL (4.8-10.8)
[2019-07-24 06:02] LABS: CALCIUM 7.6 mg/dL (8.4-11.0); CREATININE 0.45 mg/dL (0.55-1.30); POTASSIUM 4.7 mmol/L (3.5-5.1)
[2019-07-24] MEDS: FUROSEMIDE 20 MG TABLET GT SCH (09:19)
[2019-07-24] MEDS: METOPROLOL TARTRATE 25 MG TABLET GT SCH ×2 (09:20→21:00)
[2019-07-24] MEDS: levETIRAcetam 500 MG IV PREMIX 100 ML IV SCH ×2 (09:21→20:40)
[2019-07-24] MEDS: LINEZOLID 300 ML IV SCH ×2 (09:23→20:39)
[2019-07-24] MEDS: methylPREDNISolone SOD SUCC 40 MG/ML VIAL IVP SCH ×2 (09:24→20:37)
[2019-07-24] MEDS: ACETAMINOPHEN 500 MG TABLET PO PRN ×2 (09:30→20:41)
[2019-07-24] MEDS: NYSTATIN 15 GM TOPICAL POWDER TP SCH ×2 (09:30→22:09)
[2019-07-24] MEDS: APIXABAN 2.5 MG TABLET PO SCH ×2 (09:31→20:38)
[2019-07-24] MEDS: MENTHOL/ZINC OXIDE 113 GM OINT. TP SCH ×2 (09:33→22:08)
[2019-07-24] MEDS ORDERED: FUROSEMIDE 40 MG/4 ML VIAL IVP ONE (09:45)
[2019-07-25] VITALS (33 sets, daily range): BP systolic 86–115
[2019-07-25] MEDS: MEROPENEM 1 GM in NS 100 ML IV SCH ×2 (01:41→08:57)
[2019-07-25] MEDS: NACL 0.9% 1,000 ML IV SCH (01:41)
[2019-07-25] MEDS: IPRATROPIUM/ALBUTEROL SULFATE 3 ML AMPUL.NEB (DUONEB) INH SCH ×6 (03:52→23:07)
[2019-07-25 06:05] LABS: BASOPHILS % (AUTO) 0.4 % (0.0-2.0); EOSINOPHILS % (AUTO) 0.4 % (0.0-4.0); HEMATOCRIT 29.5 % (36-48); HEMOGLOBIN 9.7 g/dL (12.0-16.0); LYMPHOCYTES # (AUTO) 2.5 K/uL (1.0-5.5); LYMPHOCYTES % (AUTO) 20.9 % (20.5-51.5); MEAN CORPUSCULAR HEMOGLOBIN 33 pg (27-31); MEAN CORPUSCULAR HGB CONC 33 % (32-36); MEAN CORPUSCULAR VOLUME 102 fL (79.0-98.0); MONOCYTES # (AUTO) 1.4 K/uL (0.0-1.0); NEUTROPHILS # (AUTO) 7.8 K/uL (1.8-7.7); NEUTROPHILS % (AUTO) 66.3 % (40.0-70.0); PLATELET COUNT (AUTO) 322 K/uL (130-430); RED CELL DISTRIBUTION WIDTH 15.4 % (9.0-15.0); WHITE BLOOD COUNT (AUTO) 11.7 K/uL (4.8-10.8)
[2019-07-25 06:09] LABS: CALCIUM 7.6 mg/dL (8.4-11.0); CREATININE 0.45 mg/dL (0.55-1.30); POTASSIUM 4.5 mmol/L (3.5-5.1)
[2019-07-25] MEDS: levETIRAcetam 500 MG IV PREMIX 100 ML IV SCH ×2 (08:54→20:49)
[2019-07-25] MEDS: LINEZOLID 300 ML IV SCH ×2 (08:54→20:48)
[2019-07-25] MEDS: methylPREDNISolone SOD SUCC 40 MG/ML VIAL IVP SCH (08:58)
[2019-07-25] MEDS: APIXABAN 2.5 MG TABLET PO SCH ×2 (08:58→20:50)
[2019-07-25] MEDS: FUROSEMIDE 20 MG/2 ML VIAL IVP SCH (09:06)
[2019-07-25] MEDS ORDERED: methylPREDNISolone SOD SUCC 40 MG/ML VIAL IVP ONE (10:00)
[2019-07-25] MEDS: METOPROLOL TARTRATE 25 MG TABLET GT SCH ×2 (11:08→20:51)
[2019-07-25] MEDS: MENTHOL/ZINC OXIDE 113 GM OINT. TP SCH ×2 (11:08→20:53)
[2019-07-25] MEDS: NYSTATIN 15 GM TOPICAL POWDER TP SCH ×2 (11:08→20:53)
[2019-07-25] MEDS: LEVOFLOXACIN 500 MG/D5W 100 ML IV SCH (12:20)
[2019-07-25] MEDS ORDERED: MIDODRINE HCL 5 MG TABLET (PROAMATINE) GT ONE (17:30)
[2019-07-26] VITALS (35 sets, daily range): BP systolic 83–113
[2019-07-26] MEDS: IPRATROPIUM/ALBUTEROL SULFATE 3 ML AMPUL.NEB (DUONEB) INH SCH ×6 (03:21→23:43)
[2019-07-26] MEDS: NACL 0.9% 1,000 ML IV SCH ×2 (04:46→21:35)
[2019-07-26] MEDS: ACETAMINOPHEN 500 MG TABLET PO PRN ×2 (04:52→15:46)
[2019-07-26] MEDS: LINEZOLID 300 ML IV SCH ×2 (08:41→21:34)
[2019-07-26] MEDS: MIDODRINE HCL 5 MG TABLET (PROAMATINE) GT SCH ×2 (08:41→21:35)
[2019-07-26] MEDS: levETIRAcetam 500 MG IV PREMIX 100 ML IV SCH ×2 (08:41→21:34)
[2019-07-26] MEDS: methylPREDNISolone SOD SUCC 40 MG/ML VIAL IVP SCH (08:41)
[2019-07-26] MEDS: APIXABAN 2.5 MG TABLET PO SCH ×2 (08:43→21:37)
[2019-07-26] MEDS: NYSTATIN 15 GM TOPICAL POWDER TP SCH ×2 (08:43→21:40)
[2019-07-26] MEDS: MENTHOL/ZINC OXIDE 113 GM OINT. TP SCH ×2 (08:43→21:41)
[2019-07-26] MEDS: FUROSEMIDE 20 MG/2 ML VIAL IVP SCH (09:00)
[2019-07-26] MEDS: METOPROLOL TARTRATE 25 MG TABLET GT SCH ×2 (09:00→21:00)
[2019-07-26] MEDS: LEVOFLOXACIN 500 MG/D5W 100 ML IV SCH (11:48)
[2019-07-27] VITALS (32 sets, daily range): BP systolic 86–118
[2019-07-27] MEDS: ACETAMINOPHEN 500 MG TABLET PO PRN (01:46)
[2019-07-27] MEDS: IPRATROPIUM/ALBUTEROL SULFATE 3 ML AMPUL.NEB (DUONEB) INH SCH ×6 (03:39→23:09)
[2019-07-27] MEDS: methylPREDNISolone SOD SUCC 40 MG/ML VIAL IVP SCH (08:19)
[2019-07-27] MEDS: levETIRAcetam 500 MG IV PREMIX 100 ML IV SCH ×2 (08:20→20:23)
[2019-07-27] MEDS: MIDODRINE HCL 5 MG TABLET (PROAMATINE) GT SCH ×2 (08:20→20:29)
[2019-07-27] MEDS: LINEZOLID 300 ML IV SCH ×2 (08:20→20:22)
[2019-07-27] MEDS: APIXABAN 2.5 MG TABLET PO SCH ×2 (08:21→20:30)
[2019-07-27] MEDS: MENTHOL/ZINC OXIDE 113 GM OINT. TP SCH ×2 (08:21→20:32)
[2019-07-27] MEDS: NYSTATIN 15 GM TOPICAL POWDER TP SCH ×2 (08:22→20:32)
[2019-07-27] MEDS: FUROSEMIDE 40 MG/4 ML VIAL IVP SCH ×2 (10:10→20:28)
[2019-07-27] MEDS: METOPROLOL TARTRATE 25 MG TABLET GT SCH ×2 (10:10→20:26)
[2019-07-27] MEDS: LEVOFLOXACIN 500 MG/D5W 100 ML IV SCH (11:59)
[2019-07-27] MEDS: NACL 0.9% 1,000 ML IV SCH (20:19)
[2019-07-27] MEDS: FLUCONAZOLE 200 mg/ NS 100 ML IV SCH (20:19)
[2019-07-27] MEDS: ACETAMINOPHEN 650 MG/20.3 ML UDC GT PRN (23:32)
[2019-07-28] VITALS (25 sets, daily range): BP systolic 81–120
[2019-07-28] MEDS: IPRATROPIUM/ALBUTEROL SULFATE 3 ML AMPUL.NEB (DUONEB) INH SCH ×6 (03:03→23:14)
[2019-07-28 05:49] LABS: BASOPHILS # (AUTO) 0.1 K/uL (0.0-0.2); BASOPHILS % (AUTO) 0.7 % (0.0-2.0); EOSINOPHILS # (AUTO) 0.4 K/uL (0.0-0.4); EOSINOPHILS % (AUTO) 3.7 % (0.0-4.0); HEMATOCRIT 30.5 % (36-48); LYMPHOCYTES # (AUTO) 2.7 K/uL (1.0-5.5); LYMPHOCYTES % (AUTO) 22.4 % (20.5-51.5); MEAN CORPUSCULAR HEMOGLOBIN 34 pg (27-31); MEAN CORPUSCULAR HGB CONC 33 % (32-36); MEAN CORPUSCULAR VOLUME 103 fL (79.0-98.0); MONOCYTES # (AUTO) 1.3 K/uL (0.0-1.0); MONOCYTES % (AUTO) 11.1 % (1.7-9.3); NEUTROPHILS # (AUTO) 7.5 K/uL (1.8-7.7); NEUTROPHILS % (AUTO) 62.1 % (40.0-70.0); PLATELET COUNT (AUTO) 298 K/uL (130-430); RED BLOOD CELL COUNT(AUTO) 2.96 MIL/uL (4.2-6.2); RED CELL DISTRIBUTION WIDTH 15.8 % (9.0-15.0); WHITE BLOOD COUNT (AUTO) 12.1 K/uL (4.8-10.8)
[2019-07-28 06:00] LABS: CALCIUM 8.2 mg/dL (8.4-11.0); CREATININE 0.42 mg/dL (0.55-1.30); POTASSIUM 4.2 mmol/L (3.5-5.1)
[2019-07-28] MEDS: ACETAMINOPHEN 650 MG/20.3 ML UDC GT PRN ×2 (06:34→16:15)
[2019-07-28] MEDS: levETIRAcetam 500 MG IV PREMIX 100 ML IV SCH ×2 (09:49→20:58)
[2019-07-28] MEDS: methylPREDNISolone SOD SUCC 40 MG/ML VIAL IVP SCH (09:49)
[2019-07-28] MEDS: BALSAM PERU/CASTOR OIL 60 GM OINT...G. TP SCH (09:53)
[2019-07-28] MEDS: MENTHOL/ZINC OXIDE 113 GM OINT. TP SCH ×2 (09:53→21:03)
[2019-07-28] MEDS: MIDODRINE HCL 5 MG TABLET (PROAMATINE) GT SCH ×2 (09:54→21:00)
[2019-07-28] MEDS: METOPROLOL TARTRATE 25 MG TABLET GT SCH ×2 (09:55→20:59)
[2019-07-28] MEDS: APIXABAN 2.5 MG TABLET PO SCH ×2 (09:56→21:01)
[2019-07-28] MEDS: NYSTATIN 15 GM TOPICAL POWDER TP SCH ×2 (10:03→21:11)
[2019-07-28] MEDS: LINEZOLID 300 ML IV SCH ×2 (10:04→20:58)
[2019-07-28] MEDS: FUROSEMIDE 40 MG/4 ML VIAL IVP SCH ×2 (11:31→20:58)
[2019-07-28 12:14] LABS: BILIRUBIN,URINE NEGATIVE (NEGATIVE); BLOOD, URINE 1+ (NEGATIVE); CLARITY/URINE CLEAR (CLEAR); COLOR,URINE YELLOW (YELLOW); GLUCOSE,URINE NEGATIVE (NEGATIVE); KETONES,URINE NEGATIVE (NEGATIVE); LEUKOCYTE ESTERASE ,URINE NEGATIVE (NEGATIVE); NITRITE, URINE NEGATIVE (NEGATIVE); PH,URINE 7.5 (5.0-8.0); PROTEIN URINE NEGATIVE (NEGATIVE); UROBILINOGEN,URINE 0.2 (0.2-1.0)
[2019-07-28] MEDS: LEVOFLOXACIN 500 MG/D5W 100 ML IV SCH (12:25)
[2019-07-28 12:58] LABS: BACTERIA,URINE RARE /HPF (None Seen); MUCUS,URINE 1+ /LPF (None Seen); WBC,URINE 0-3 /HPF (0-3)
[2019-07-28] MEDS: NACL 0.9% 1,000 ML IV SCH (16:48)
[2019-07-28] MEDS: FLUCONAZOLE 200 mg/ NS 100 ML IV SCH (17:29)
[2019-07-29] VITALS (7 sets, daily range): BP systolic 86–128
[2019-07-29] MEDS: IPRATROPIUM/ALBUTEROL SULFATE 3 ML AMPUL.NEB (DUONEB) INH SCH ×3 (04:05→11:53)
[2019-07-29 06:29] LABS: CALCIUM 8.3 mg/dL (8.4-11.0); CREATININE 0.44 mg/dL (0.55-1.30); POTASSIUM 4.1 mmol/L (3.5-5.1)
[2019-07-29 06:52] LABS: BASOPHILS # (AUTO) 0.1 K/uL (0.0-0.2); BASOPHILS % (AUTO) 0.6 % (0.0-2.0); EOSINOPHILS # (AUTO) 0.3 K/uL (0.0-0.4); EOSINOPHILS % (AUTO) 1.5 % (0.0-4.0); HEMATOCRIT 32.2 % (36-48); HEMOGLOBIN 10.5 g/dL (12.0-16.0); LYMPHOCYTES # (AUTO) 2.7 K/uL (1.0-5.5); LYMPHOCYTES % (AUTO) 14.7 % (20.5-51.5); MEAN CORPUSCULAR HEMOGLOBIN 34 pg (27-31); MEAN CORPUSCULAR HGB CONC 33 % (32-36); MEAN CORPUSCULAR VOLUME 104 fL (79.0-98.0); MONOCYTES # (AUTO) 1.6 K/uL (0.0-1.0); MONOCYTES % (AUTO) 8.9 % (1.7-9.3); NEUTROPHILS # (AUTO) 13.4 K/uL (1.8-7.7); NEUTROPHILS % (AUTO) 74.3 % (40.0-70.0); PLATELET COUNT (AUTO) 332 K/uL (130-430); RED BLOOD CELL COUNT(AUTO) 3.11 MIL/uL (4.2-6.2); RED CELL DISTRIBUTION WIDTH 15.8 % (9.0-15.0)
[2019-07-29] MEDS: methylPREDNISolone SOD SUCC 40 MG/ML VIAL IVP SCH (09:12)
[2019-07-29] MEDS: FUROSEMIDE 40 MG/4 ML VIAL IVP SCH (09:13)
[2019-07-29] MEDS: NACL 0.9% 1,000 ML IV SCH (09:14)
[2019-07-29] MEDS: MIDODRINE HCL 5 MG TABLET (PROAMATINE) GT SCH (09:14)
[2019-07-29] MEDS: METOPROLOL TARTRATE 25 MG TABLET GT SCH (09:14)
[2019-07-29] MEDS: levETIRAcetam 500 MG IV PREMIX 100 ML IV SCH (09:15)
[2019-07-29] MEDS: LINEZOLID 300 ML IV SCH (09:15)
[2019-07-29] MEDS: APIXABAN 2.5 MG TABLET PO SCH (09:15)
[2019-07-29] MEDS: NYSTATIN 15 GM TOPICAL POWDER TP SCH (09:16)
[2019-07-29] MEDS: MENTHOL/ZINC OXIDE 113 GM OINT. TP SCH (09:16)
[2019-07-29] MEDS: BALSAM PERU/CASTOR OIL 60 GM OINT...G. TP SCH (09:17)
[2019-07-29] MEDS: LEVOFLOXACIN 500 MG/D5W 100 ML IV SCH (11:35)
== END 2019-07-29 15:40 | DRG 720 ==
LOC: SED 20:12 → SIC 23:50 → STU 07-28 17:05
PROVIDERS: ADMIT Family Medicine; ATTEND Family Medicine
PROC: 5A1955Z Respiratory Ventilation, Greater than 96 Consecutive Hours (ICD-10-PCS; principal; 2019-07-20)
DX: A41.89 Other specified sepsis (principal); J96.20 Acute and chronic respiratory failure, unspecified whether with hypoxia or hypercapnia; J69.0 Pneumonitis due to inhalation of food and vomit; E43 Unspecified severe protein-calorie malnutrition; Z99.11 Dependence on respirator [ventilator] status; J15.6 Pneumonia due to other Gram-negative bacteria; N17.0 Acute kidney failure with tubular necrosis; R65.21 Severe sepsis with septic shock; G91.9 Hydrocephalus, unspecified; Z93.0 Tracheostomy status; I50.43 Acute on chronic combined systolic (congestive) and diastolic (congestive) heart failure; E66.9 Obesity, unspecified; E87.2 Acidosis; F79 Unspecified intellectual disabilities; G40.909 Epilepsy, unspecified, not intractable, without status epilepticus; L89.629 Pressure ulcer of left heel, unspecified stage; E87.6 Hypokalemia; D63.8 Anemia in other chronic diseases classified elsewhere; T85.79XA Infection and inflammatory reaction due to other internal prosthetic devices, implants and grafts, initial encounter; Y83.8 Other surgical procedures as the cause of abnormal reaction of the patient, or of later complication, without mention of misadventure at the time of the procedure; N39.0 Urinary tract infection, site not specified; Z86.718 Personal history of other venous thrombosis and embolism; Z86.73 Personal history of transient ischemic attack (TIA), and cerebral infarction without residual deficits; Z88.1 Allergy status to other antibiotic agents; Z88.8 Allergy status to other drugs, medicaments and biological substances; Z79.01 Long term (current) use of anticoagulants; Z79.899 Other long term (current) drug therapy; Z68.41 Body mass index [BMI] 40.0-44.9, adult; Y92.89 Other specified places as the place of occurrence of the external cause
CPT/HCPCS: 36415; 36600; 71045; 80048; 80053; 81000-TC; 82040-TC; 82150-TC; 82803-TC; 83605; 83690-TC; 83735-TC; 83880; 84100-TC; 84484; 85007; 85025; 85027; 85610-TC; 85730-TC; 87040-TC; 87070-TC; 87081; 87086; 87186-TC; 87205-TC; 93005; 94003; 94640; 94760; 96361; 96365; 99285; 99291; 99292; A6209; J1030; J1450; J1940; J1953; J1956; J2020; J2185; J2270; J2405; J3480; J7030; J7050

== ENCOUNTER 2019-07-30 07:20 | Inpatient (IN) | payer BC ==
[~2019-07-30] VITALS: Ht 152.4 cm; Wt 91.4 kg
--- NOTE | 2019-07-30 07:20 | NUR ---
Patient to ER bed 8 to gown for evaluation. Side rails up. Report given to DMITRI Perry.
--- NOTE | 2019-07-30 07:25 | NUR ---
Patient brought in by ambulance in the ED for fevers and hypotension that started today, patient was just discharged last night. Patient is non-verbal, eyes are tracking. VSS, pain level 0/10. Will continue to monitor.
[2019-07-30 07:34] VITALS: BP_SYST 119
--- NOTE | 2019-07-30 07:57 | NUR ---
X-ray tech at bedside as ordered by Dr. Lamb. Patient tolerated the procedure well.
[2019-07-30 09:06] LABS: BASOPHILS # (AUTO) 0.1 K/uL (0.0-0.2); BASOPHILS % (AUTO) 0.3 % (0.0-2.0); EOSINOPHILS % (AUTO) 0.2 % (0.0-4.0); HEMATOCRIT 29.5 % (36-48); HEMOGLOBIN 9.8 g/dL (12.0-16.0); LYMPHOCYTES # (AUTO) 0.9 K/uL (1.0-5.5); LYMPHOCYTES % (AUTO) 4.5 % (20.5-51.5); MEAN CORPUSCULAR HEMOGLOBIN 34 pg (27-31); MEAN CORPUSCULAR HGB CONC 33 % (32-36); MEAN CORPUSCULAR VOLUME 103 fL (79.0-98.0); MONOCYTES # (AUTO) 1.2 K/uL (0.0-1.0); NEUTROPHILS # (AUTO) 17.8 K/uL (1.8-7.7); PLATELET COUNT (AUTO) 301 K/uL (130-430); RED BLOOD CELL COUNT(AUTO) 2.87 MIL/uL (4.2-6.2); RED CELL DISTRIBUTION WIDTH 15.4 % (9.0-15.0)
[2019-07-30 09:14] LABS: CALCIUM 8.5 mg/dL (8.4-11.0); CREATININE 0.45 mg/dL (0.55-1.30); POTASSIUM 4.1 mmol/L (3.5-5.1)
[2019-07-30 09:19] LABS: PROTHROMBIN TIME 10.3 SECS (9.5-12.5)
[2019-07-30 09:20] LABS: ALBUMIN 2.4 g/dL (3.4-4.8); TOTAL BILIRUBIN 0.4 mg/dL (0.0-1.0)
--- NOTE | 2019-07-30 09:20 | NUR ---
ECG done at bedside as ordered by Dr. Lamb. Patient tolerated the procedure well. Report given to
--- NOTE | 2019-07-30 10:00 | NUR ---
Administered Levaquin IVF as ordered by Dr. Lamb. Patient tolerated the medication well. See eMAR for details.
--- NOTE | 2019-07-30 10:05 | NUR ---
# 16 FR In and Out catheter with use of sterile technique. Immediate return of 200 ml dark yellow urine noted. Urine sample collected and sent to lab. Pt tolerated procedure well. Patient unable to toilet self.
[2019-07-30 10:17] LABS: BILIRUBIN,URINE NEGATIVE (NEGATIVE); CLARITY/URINE CLEAR (CLEAR); COLOR,URINE YELLOW (YELLOW); GLUCOSE,URINE NEGATIVE (NEGATIVE); KETONES,URINE NEGATIVE (NEGATIVE); LEUKOCYTE ESTERASE ,URINE NEGATIVE (NEGATIVE); NITRITE, URINE NEGATIVE (NEGATIVE); PH,URINE 5.5 (5.0-8.0); PROTEIN URINE NEGATIVE (NEGATIVE); UROBILINOGEN,URINE 0.2 (0.2-1.0)
[2019-07-30 10:32] LABS: BLOOD, URINE TRACE (NEGATIVE)
[2019-07-30 10:48] LABS: BACTERIA,URINE RARE /HPF (None Seen); WBC,URINE 0-3 /HPF (0-3)
[2019-07-30 10:49] LABS: MUCUS,URINE 2+ /LPF (None Seen)
[2019-07-30] MEDS ORDERED: D5LR 500 ML IV SCH (11:00)
--- NOTE | 2019-07-30 11:29 | NUR ---
Dr. Gasca at bedside.
--- NOTE | 2019-07-30 12:22 | NUR ---
MRSA swab done and dropped off at the lab.
--- NOTE | 2019-07-30 13:51 | NUR ---
Patient is resting comfortably in bed, respirations even and unlabored on mechanical vent. Mother at bedside.
[2019-07-30] MEDS ORDERED: IPRATROPIUM/ALBUTEROL SULFATE 3 ML AMPUL.NEB (DUONEB) INH PRN ×2 (14:15)
[2019-07-30] MEDS ORDERED: FUROSEMIDE 100 MG/10 ML VIAL ONE (15:16)
[2019-07-30] MEDS: FUROSEMIDE 100 MG in D5W 90 ML IV SCH (15:18)
[2019-07-30] MEDS ORDERED: LINEZOLID 300 ML IV ONE (18:45)
--- NOTE | 2019-07-30 18:47 | NUR ---
APatient will be admitted to care of DR. NICOLE. Admitted to TELEMETRY unit. Will go to room 103a. Belongings list completed. Complete and up to date summary report printed. SBAR report to be given at bedside with opportunity for questions.
--- NOTE | 2019-07-30 20:21 | NUR ---
CARDIAC CONSULT REASON FOR CONSULTATION:CHF WAS CONSULT CALLED?Y PERSON WHO WAS NOTIFIED:JAREK CONSULTING PHYSICIAN:DERRICK HAILE HEEL SEATER SPECIALTY:CARDIO HEEL SEATER PHONE NUMBER:[phone]
--- NOTE | 2019-07-30 20:25 | NUR ---
ADMISSION NOTE Received patient from ER via gurney under the care of Dr. Aranda. Patient admitted with diagnosis of Sepsis . Patient is awake,but non verbal and not showing understanding. Patient oriented to hospital room, call light, toileting, pain management but no response. Call light within reach. Will continue to monitor patient condition.
--- NOTE | 2019-07-30 20:26 | NUR ---
ID CONSULT CALLED REASON FOR CONSULTATION:SEPSIS WAS CONSULT CALLED?Y PERSON WHO WAS NOTIFIED:WILLIAM CONSULTING PHYSICIAN:POWER SULLIVAN RESERVATION AGENT SPECIALTY:IF RESERVATION AGENT PHONE NUMBER:[phone]
[2019-07-30 20:28] VITALS: BP_SYST 136
--- NOTE | 2019-07-30 20:28 | NUR ---
Admission Note Received patient from ER with diagnosis of Sepsis. Initial Plan of Care discussed-patient verbalized understanding. Oriented to room, call light, pain management and safety.
[2019-07-30 20:29] VITALS: BP_SYST 158
--- NOTE | 2019-07-30 20:33 | NUR ---
PULMONARY COUNSULT CALLED REASON FOR CONSULTATION:SEPSIS WAS CONSULT CALLED?Y PERSON WHO WAS NOTIFIED:DENISE CONSULTING PHYSICIAN:XENIA CARDOZA SUPERVISING FILM OR VIDEOTAPE EDITOR SPECIALTY:PULMONARY SUPERVISING FILM OR VIDEOTAPE EDITOR PHONE NUMBER:[phone]
[2019-07-30] MEDS ORDERED: levETIRAcetam 500 MG IV PREMIX 100 ML IV SCH (21:00)
--- NOTE | 2019-07-30 21:00 | NUR ---
SPOKE TO SISTER OF PATIENT, RICHARD , UPDATED THAT PATIENT IS COMFORTABLE, ORIENTED ON PLAN OF CARE AND ROOM, ASKS ABOUT IF PATIENT HAD RECEIVED HER SEIZURE MEDICATIONS AND ALSO, BROTHER IS MARIOAR, . MOTHER IS STILL THE CONSERVATOR, SISTER IS UNAWARE IF PATIENT HAS GOTTEN THE FLU SHOT ALREADY, WILL CHECK RECORDS.
--- NOTE | 2019-07-30 21:10 | NUR ---
INITIAL NOTES Patient is resting, no signs of acute respiratory distress observed, connected to trach, patient tolerating well, Gtube intact. IVF running, MARA PICC, patent, dressings c/d/i. Seizure pads in place, on air loss mattress, Will continue to monitor.
[2019-07-30] MEDS ORDERED: LEVOFLOXACIN 500 MG/D5W 100 ML IV ONE (21:46)
[2019-07-30] MEDS ORDERED: LevETIRAcetam 500 MG/5 ML UDC ORAL LIQUID ONE (21:46)
[2019-07-30] MEDS: metroNIDAZOLE 500 MG TABLET GT SCH (22:01)
[2019-07-30] MEDS: CARVEDILOL 3.125 MG TABLET (COREG) PO SCH (22:03)
[2019-07-30] MEDS: BETHANECHOL CHLORIDE 25 MG TABLET (URECHOLINE) GT SCH (22:04)
[2019-07-30] MEDS: LEVOFLOXACIN 500 MG/D5W 100 ML IV SCH (22:05)
--- NOTE | 2019-07-30 22:30 | NUR ---
SPOKE TO DR. NICOLE , IVPB KEPPRA NOT AVAILABLE, RECEIVED NEW ORDERS TO CHANGE KEPPRA TO LIQUID KEPPRA FOR G-TUBE ROUTE WITH SAME DOSAGE.
--- NOTE | 2019-07-31 | NUR ---
Patient is resting, no HOB elevated. IVF running, dressings c/d/i. Will continue to monitor.
[2019-07-31] MEDS: LevETIRAcetam 500 MG/5 ML UDC ORAL LIQUID GT SCH ×3 (00:03→21:26)
[2019-07-31] MEDS ORDERED: LevETIRAcetam 500 MG/5 ML UDC ORAL LIQUID ONE (00:13)
--- NOTE | 2019-07-31 02:00 | NUR ---
Patient is resting, eyes closed. Perineal care provided. No signs of distress observed. Will continue to monitor.
--- NOTE | 2019-07-31 04:10 | NUR ---
Patient is resting, no signs of acute respiratory distress observed. Will continue to monitor.
[2019-07-31] MEDS: metroNIDAZOLE 500 MG TABLET GT SCH ×3 (06:48→21:26)
--- NOTE | 2019-07-31 06:53 | NUR ---
CLOSING NOTES Patient is resting, no signs of acute respiratory distress observed, connected to trach, patient tolerating well, Gtube intact. IVF running, MARA PICC, patent, dressings c/d/i. Seizure pads in place, on air loss mattress, All needs met throughout shift. Will endorse care to oncoming shift.
[2019-07-31 06:56] LABS: BASOPHILS # (AUTO) 0.1 K/uL (0.0-0.2); BASOPHILS % (AUTO) 0.7 % (0.0-2.0); EOSINOPHILS # (AUTO) 0.2 K/uL (0.0-0.4); EOSINOPHILS % (AUTO) 1.5 % (0.0-4.0); HEMATOCRIT 30.5 % (36-48); HEMOGLOBIN 10.1 g/dL (12.0-16.0); LYMPHOCYTES # (AUTO) 1.3 K/uL (1.0-5.5); LYMPHOCYTES % (AUTO) 11.9 % (20.5-51.5); MEAN CORPUSCULAR HEMOGLOBIN 34 pg (27-31); MEAN CORPUSCULAR HGB CONC 33 % (32-36); MEAN CORPUSCULAR VOLUME 103 fL (79.0-98.0); MONOCYTES # (AUTO) 0.8 K/uL (0.0-1.0); MONOCYTES % (AUTO) 6.7 % (1.7-9.3); NEUTROPHILS # (AUTO) 8.9 K/uL (1.8-7.7); NEUTROPHILS % (AUTO) 79.2 % (40.0-70.0); PLATELET COUNT (AUTO) 306 K/uL (130-430); RED BLOOD CELL COUNT(AUTO) 2.95 MIL/uL (4.2-6.2); RED CELL DISTRIBUTION WIDTH 15.4 % (9.0-15.0); WHITE BLOOD COUNT (AUTO) 11.2 K/uL (4.8-10.8)
[2019-07-31 07:05] LABS: ALBUMIN 2.4 g/dL (3.4-4.8); CALCIUM 8.8 mg/dL (8.4-11.0); CREATININE 0.38 mg/dL (0.55-1.30); PHOSPHORUS 3.1 mg/dL (2.7-4.5); POTASSIUM 3.2 mmol/L (3.5-5.1); TOTAL BILIRUBIN 0.4 mg/dL (0.0-1.0)
--- NOTE | 2019-07-31 08:00 | NUR ---
opening notes, received pt in bed, pt is non verbal, pt has trach connected to vent, settings are AC, peep of 5, tv 400, fi02 40 , no s/s of pain, no fever, vitals wnl. pt has a g-tube, flushed , residual of 20 cc noted. stewart cath on. will cont to monitor.
--- NOTE | 2019-07-31 08:00 | NUR ---
opening notes, received pt in bed, pt is non verbal, trach to vent. settings are tv 400, fi02 40, peep 5. stewart on, pt on lasix drip. tube feeding not connected, called dietary to send feeding . picc on r. upper arm noted. will cont to monitor.
[2019-07-31] MEDS ORDERED: LINEZOLID 300 ML IV SCH (09:00)
[2019-07-31] MEDS ORDERED: FUROSEMIDE 40 MG TABLET GT SCH (09:00)
[2019-07-31] MEDS: MAGNESIUM OXIDE 400 MG TABLET GT SCH (09:20)
[2019-07-31] MEDS: FAMOTIDINE 20 MG TABLET GT SCH (09:21)
[2019-07-31] MEDS: DOCUSATE SODIUM 100 MG CAPSULE PO SCH (09:21)
[2019-07-31] MEDS: BETHANECHOL CHLORIDE 25 MG TABLET (URECHOLINE) GT SCH ×2 (09:21→21:27)
[2019-07-31] MEDS: ASCORBIC ACID 500 MG TABLET PO SCH (09:21)
[2019-07-31] MEDS: POTASSIUM CHLORIDE 20 MEQ TAB.PRT.SR PO SCH (09:22)
[2019-07-31] MEDS: CARVEDILOL 3.125 MG TABLET (COREG) PO SCH ×2 (09:31→21:27)
[2019-07-31 09:51] VITALS: BP_SYST 116
--- NOTE | 2019-07-31 09:53 | NUR ---
Nutrition Note/Tube feeding Order Current Nutrition Support: Two Magdi HN at 40 ml/hr, Prosource TID, Free Water Flush: 100 ML Q8H via GT This formula is not currently in stock at [facility]. Pt was recently admitted 07/20/19 and was followed by clinical nutrition staff. Pt had been on Glucerna 1.5 at 55 ml/hr, Daniel BID, Free Water Flush: 100 ml Q6h via GT per latest Nutrition F/U note 07/28/19, and was tolerating it well prior to D/C on 07/29/19. RD to complete official Nutrition Assessment for this admission today -- for now, pt's TF will be modified to Glucerna 1.5 d/t lack of Two Magdi HN formula. RD to continue to follow as per nutrition care standards.
--- NOTE | 2019-07-31 10:23 | NUR ---
Nutrition Update Wyatt Scale 15 noted. Pt admitted for sepsis. Diet: Glucerna 1.5 at 55 ml/hr, Daniel BID, Free Water Flush: 100 ml Q6h via GT BMI: 39.1 kg/m2 RD to follow per nutrition care standards.
--- NOTE | 2019-07-31 10:30 | NUR ---
g-tube feeding started, residual pre infusion was 20cc, will continue to monitor.
--- NOTE | 2019-07-31 11:00 | NUR ---
pt's mom at bedside. pt has no sob, no distress.
[2019-07-31 11:07] VITALS: BP_SYST 108
[2019-07-31] MEDS: FUROSEMIDE 100 MG in D5W 90 ML IV SCH (12:47)
--- NOTE | 2019-07-31 13:26 | NUR ---
DC PLANNING CHART REVIEWED, PATIENT WAS SENT BACK FROM [facility] WITHIN 1 DAY, BEDBOUND, CONTINUOUS MINER SHUNT CARE AND G TUBE FEEDING, PRIMARY LANGUAGE- SAMOAN, CALLED MOTHER: DRE MORATAYA [phone]. DCP: AGREES TO LET PATIENT BACK TO [facility] ONCE PATIENT IS CLEAR FROM HOSPITAL.
--- NOTE | 2019-07-31 14:00 | NUR ---
Dietitian Recommendations * Recommend continuing Glucerna 1.5 at 55 ml/hr, Daniel BID, Free Water Flush: 100 ml Q6h via GT Provides: 2140 kcal/day, 114 gm protein/day, and 1402 ml free water/day Meets: 96% of upper end of estimated caloric needs and 100% of upper end of estimated protein needs LP, RD Please refer to Nutrition Assessment for details. Addendum: 08/01/19 at [address] Amended: Links added.
--- NOTE | 2019-07-31 14:42 | NUR ---
dr goodman was here and seen pt, clarified with md taylor medication , md said he will take care of the potassium level.
[2019-07-31] MEDS ORDERED: POTASSIUM CHLORIDE 20 MEQ/PKT PACKET GT ONE (15:00)
[2019-07-31 15:15] VITALS: BP_SYST 121
--- NOTE | 2019-07-31 15:26 | NUR ---
40 meq K and flagyl given. pt asleep, no distress at this time.
--- NOTE | 2019-07-31 16:06 | NUR ---
Assisted wound care nurseHeriberto with wound assessment, pt tolerated well.
[2019-07-31] MEDS ORDERED: BALSAM PERU/CASTOR OIL 60 GM OINT...G. TP ONE (16:15)
--- NOTE | 2019-07-31 16:16 | NUR ---
WOUND EVALUATION: Wound Consult received from Dr. Aranda. Thank you Dr. Aranda for the consult. Patient received in a Ranjit Bed with an IsoFlex JED mattress with low air-loss therapy, awake, nonverbal, nonresponsive to verbal commands. Patient is unable to turn in bed independently. Wyatt Score is a 15. Past Medical History: Cerebral infarct, Obesity, CVA, history of multiple episodes of Pneumonia, Dysphagia, recent ventilator dependent pneumonia, Seizure disorder, Respiratory Failure, Hydrocephalus, possible developmental delay, COPD, Tachycardia, Aspiration Pneumonia, Tracheostomy, PEG placement, ventilator dependent. Recent Labs: WBC 11.2, RBC 2.95, hemoglobin 10.1, hematocrit 30.5, Na 129, K 3.2, Cl 91, BUN 8, creatinine 0.38, Gluc 103, albumin 2.4, PTT 20.5. Microbiology: Blood culture results x 2 in progress. Urine culture results negative. MRSA screen results in progress. Trachael sputum culture results in progress. Intrinsic factors that delay wound healing: Dysphagia, COPD, Respiratory Failure, ventilator dependent. Extrinsic factors that delay wound healing: Immobility. Wound Assessment: 1. Right Lateral Breast Fold: Intertrigo with yellow crusty area and mild erythema, present on admission. No odor, no drainage. 2. Left Lateral Breast Fold Intertrigo with yellow crusty area and mild erythema, present on admission. No odor, no drainage. 3. Right Upper Lateral Abdominal Skin Fold Intertrigo with with yellow crusty area and mild erythema, present on admission. No odor, no drainage. 4. Left Upper Lateral Abdominal Skin Fold Intertrigo with with yellow crusty area and mild erythema, present on admission. No odor, no drainage. Recommend: Cleanse involved areas with mild soap and water. Pat dry. Apply Hydraguard barrier cream to scaly areas. Apply antifungal powder to reddened fold areas, then dust. Insert Inter-dry AG cloth into fold areas. Perform site care BID. Replace Inter-dry AG cloth q 5 days and as needed for cloth soiling or dislodgement. 5. Abdominal fold: Intertrigo with erythema, present on admission. 6. Right Inguinal Area: IAD with erythema, present on admission. 7. Left Inguinal Area: IAD with erythema, present on admission. Recommend: Cleanse involved areas with mild soap and water. Pat dry. Apply antifungal powder to reddened fold areas and reddened inguinal/thigh areas, then dust. Insert Inter-dry AG cloth into fold areas. Perform site care BID. Replace Inter-dry AG cloth q 5 days and as needed for cloth soiling or dislodgement. 8. Right Buttock: Scar tissue with blanchable red erythema, and excoriations, present on admission. Site has dark discoloration in parallel with excoriations. No odor, no drainage. Periwound intact. Site measures 2.5 cm x 3.0 cm. 9. Right Buttock, inferior to site 8: Scar tissue with blanchable red erythema, and dark discolored linear area of skin, with small open area at distal aspect, present on admission. No odor, scant sanguineous drainage. Periwound intact. Site measures 2.5 cm x 2.7 cm. 10. Left Buttock: Scar tissue with blanchable red erythema and moisture associated skin damage, present on admission. No odor, no drainage. Periwound intact. Site measures 0.1 cm x 0.1 cm. Recommend: Cleanse areas with normal saline. Apply Calmoseptine cream to wounds, hai-wounds and surrounding tissue. Cover with foam dressings, then transparent dressings. Perform wound care daily, and as needed for dressing soiling or dislodgement. 11. Right Distal Lateral Lower Extremity: Scar tissue, present on admission. No odor, no drainage. 12. Right Distal Lateral Lower Extremity, Inferior to Site 11: Unstageable pressure ulcer, present on admission. Wound bed has 100% yellow slough. No odor, no drainage. Periwound intact. Surrounding tissue has dark discoloration and scar tissue. Wound measures 0.4 cm x 0.4 cm. 13. Right Distal Lateral Lower Extremity, Inferior to Site 12: Unstageable pressure ulcer, present on admission. Wound bed has 100% yellow eschar. No odor, no drainage. Periwound intact. Surrounding tissue has dark discoloration and scar tissue. Wound measures 1.0 cm x 0.4 cm x 0.2 cm. Recommend: Cleanse wounds with normal saline. Apply Calmoseptine cream to hai-wounds. Apply Venelex ointment to wounds 12 and 13. Cover with foam dressing. Perform wound care daily, and as needed for dressing soiling or dislodgement. Offload sites at all times. 14. Right Proximal Medial Calf: Vertical linear shaped area of hypertrophic scar tissue, present on admission. Scar tissue has dark discoloration. No odor, no drainage. Site measures 13.5 cm x 2.0 cm. 15. Right Dorsal Foot: Hypertrophic scar tissue, present on admission. 16. Left Dorsal Foot: Hypertrophic scar tissue, present on admission. 17. Left Distal Aldridge: Scar tissue, present on admission. Recommend: No dressings needed. Continue to monitor sites every shift. 18. Right Lateral 5th Metatarsal Head: Scar tissue, present on admission. 19. Right Heel: Scar tissue with blanchable red erythema, present on admission. Recommend: Cover sites with foam dressings. Offload sites at all times. 20. Left Distal Lateral Lower Extremity: Scar tissue from a healed unstageable pressure ulcer, present on admission. 21. Left Distal Lateral Lower Extremity, surrounding site above: Scar tissue, present on admission. Recommend: Cover sites with foam dressings. Offload sites at all times. 22. Left Heel: Unstageable pressure ulcer, present on admission. Wound bed has 40% pink tissue, 30% red tissue, 30% yellow slough. No odor, no drainage. Periwound intact. Wound measures 3.0 cm x 2.5 cm x 0.3 cm. Recommend: Cleanse wound with normal saline. Apply Calmoseptine cream to hai-wound. Apply Venelex ointment to wound. Cover with foam dressing. Perform wound care daily, and as needed for dressing soiling or dislodgement. Offload site at all times. 23. Right Anterior Breast: Dry scab, present on admission. Site has 100% brown scab. No odor, no drainage. Site measures 0.7 cm x 0.3 cm. Recommend: No dressing needed. Continue to monitor site qshift. Also recommend: Reposition patient side to side only every 2 hours with pillow support (one pillow underneath trunk and one pillow underneath pelvis) and off-load pressure areas with pillows for pressure re-distribution. Offload, elevate and float bilateral heels with pillows. Perform skin care and monitor skin integrity Q shift. Use Calmoseptine cream on buttocks and other moisture susceptible areas QID and as needed for soiling. Maintain patient on a low air-loss mattress.
[2019-07-31] MEDS ORDERED: NYSTATIN 15 GM TOPICAL POWDER TP ONE (18:26)
[2019-07-31 19:00] VITALS: BP_SYST 140
--- NOTE | 2019-07-31 19:36 | NUR ---
OPENING NOTES Patient is resting, no signs of acute respiratory distress observed, connected to trach, patient tolerating well, Gtube intact, Gtube running. IVF running, MARA PICC, patent, dressings c/d/i. Seizure pads in place, on air loss mattress, stewart catheter in place, draining by gravity, no kinks, no loops, clear yellow urine noted. Call light within reach, bed alarm on, bed at lowest position. Will continue to monitor.
[2019-07-31 20:00] VITALS: BP_SYST 132
--- NOTE | 2019-07-31 20:00 | NUR ---
CLOSING NOTES: PT ENDORSED TO NIGHT NURSE DORA. PT HAS BEEN STABLE, THE WHOLE SHIFT. NO SOB. VITALS WNL. WOUND CARE DONE. ALL MEDS GIVEN.
[2019-07-31] MEDS: LEVOFLOXACIN 500 MG/D5W 100 ML IV SCH (21:26)
[2019-07-31] MEDS: NYSTATIN 15 GM TOPICAL POWDER TP SCH (21:26)
[2019-07-31] MEDS: POTASSIUM CHLORIDE 20 MEQ/PKT PACKET GT SCH (21:26)
--- NOTE | 2019-07-31 22:30 | NUR ---
Water flush provided, residual 1ml, No signs of distress observed. Will continue to monitor.
--- NOTE | 2019-08-01 00:14 | NUR ---
Patient is resting, HOB elevated, no signs of acute distress observed. Heels off loaded. Will continue to monitor.
[2019-08-01 00:31] VITALS: BP_SYST 104
--- NOTE | 2019-08-01 02:20 | NUR ---
Central line dressing change performed. Sterile field maintained, patient tolerated well. CHG dressing applied, no change in PICC line length. Dressing c/d/i. Will continue to monitor.
--- NOTE | 2019-08-01 04:10 | NUR ---
Patient has no signs of acute respiratory distress observed. Incontinence care provided, patient tolerated well. Will continue to monitor.
[2019-08-01] MEDS: metroNIDAZOLE 500 MG TABLET GT SCH ×3 (06:03→21:17)
--- NOTE | 2019-08-01 06:54 | NUR ---
CLOSING NOTES Patient is resting, no signs of acute respiratory distress observed, connected to trach, patient tolerating well, Gtube intact, Gtube running. IVF running, MARA PICC, patent, dressings c/d/i. Seizure pads in place, on air loss mattress, stewart catheter in place, draining by gravity, no kinks, no loops, clear yellow urine noted. Call light within reach, bed alarm on, bed at lowest position. All needs met throughout shift. Will endorse care to oncoming shift.
[2019-08-01 07:19] LABS: BASOPHILS # (AUTO) 0.1 K/uL (0.0-0.2); BASOPHILS % (AUTO) 0.6 % (0.0-2.0); EOSINOPHILS # (AUTO) 0.2 K/uL (0.0-0.4); EOSINOPHILS % (AUTO) 1.3 % (0.0-4.0); HEMOGLOBIN 10.7 g/dL (12.0-16.0); LYMPHOCYTES % (AUTO) 8.6 % (20.5-51.5); MEAN CORPUSCULAR HEMOGLOBIN 35 pg (27-31); MEAN CORPUSCULAR HGB CONC 34 % (32-36); MEAN CORPUSCULAR VOLUME 103 fL (79.0-98.0); MONOCYTES # (AUTO) 0.4 K/uL (0.0-1.0); MONOCYTES % (AUTO) 3.8 % (1.7-9.3); NEUTROPHILS # (AUTO) 9.9 K/uL (1.8-7.7); NEUTROPHILS % (AUTO) 85.7 % (40.0-70.0); PLATELET COUNT (AUTO) 370 K/uL (130-430); RED CELL DISTRIBUTION WIDTH 15.9 % (9.0-15.0); WHITE BLOOD COUNT (AUTO) 11.5 K/uL (4.8-10.8)
[2019-08-01 07:36] LABS: ALBUMIN 2.6 g/dL (3.4-4.8); CALCIUM 9.2 mg/dL (8.4-11.0); CREATININE 0.45 mg/dL (0.55-1.30); POTASSIUM 3.9 mmol/L (3.5-5.1); TOTAL BILIRUBIN 0.3 mg/dL (0.0-1.0)
[2019-08-01 07:52] VITALS: BP_SYST 131
--- NOTE | 2019-08-01 08:05 | NUR ---
opening notes, received pt in bed, pt is non verbal, no sob, no distress, no s/s pain. pt on trach to vent, setting are the same, no change, ac tv400, fio2 40%, peep 5. safety precaution in place. bed alarm on. will cont to monitor.
--- NOTE | 2019-08-01 08:40 | NUR ---
Discharge Planning: DCP faxed to Ronna reyes [place] (f [phone] p [phone]) DCP to follow up
[2019-08-01] MEDS: POTASSIUM CHLORIDE 20 MEQ TAB.PRT.SR PO SCH (09:00)
[2019-08-01] MEDS: BALSAM PERU/CASTOR OIL 60 GM OINT...G. TP SCH (09:12)
[2019-08-01] MEDS: MENTHOL/ZINC OXIDE 113 GM OINT. TP PRN (09:12)
[2019-08-01] MEDS: DOCUSATE SODIUM 100 MG CAPSULE PO SCH (09:13)
[2019-08-01] MEDS: FAMOTIDINE 20 MG TABLET GT SCH (09:13)
[2019-08-01] MEDS: CARVEDILOL 3.125 MG TABLET (COREG) PO SCH ×2 (09:13→21:18)
[2019-08-01] MEDS: BETHANECHOL CHLORIDE 25 MG TABLET (URECHOLINE) GT SCH ×2 (09:13→21:18)
[2019-08-01] MEDS: ASCORBIC ACID 500 MG TABLET PO SCH (09:13)
[2019-08-01] MEDS: POTASSIUM CHLORIDE 20 MEQ/PKT PACKET GT SCH ×2 (09:13→21:18)
[2019-08-01] MEDS: LevETIRAcetam 500 MG/5 ML UDC ORAL LIQUID GT SCH ×2 (09:13→21:19)
[2019-08-01] MEDS: MAGNESIUM OXIDE 400 MG TABLET GT SCH (09:13)
[2019-08-01] MEDS: NYSTATIN 15 GM TOPICAL POWDER TP SCH ×2 (09:15→21:36)
[2019-08-01 11:15] VITALS: BP_SYST 137
--- NOTE | 2019-08-01 14:05 | NUR ---
DC PLANNING CALLED INSURANCE #[phone] BEFORE 11 AM, PATIENT HAS BEEN VERIFIED BY [facility] ELAINE BROWN. REFERRED HER INFORMATION TO LTAC MARGOTH HERMINIO # [phone], HERMINIO WILL CONTINUE TO FOLLOW UP WITH THE CASE WITH [facility] TO TRY TO GET A LTAC AUTHORIZATION. CONTINUE FOLLOW UP WITH DCP: POSSIBLE LTAC VS SUB ACUTE. JCSammy RIZVI CM
[2019-08-01] MEDS ORDERED: acetaZOLAMIDE 250 MG TABLET (DIAMOX) GT ONE (14:15)
[2019-08-01] MEDS: FUROSEMIDE 100 MG in D5W 90 ML IV SCH (14:20)
[2019-08-01 15:02] VITALS: BP_SYST 110
--- NOTE | 2019-08-01 16:12 | NUR ---
DC PLANNING RECEIVED A VM FROM MARGOTH DURHAM FOR INSURANCE TOÑA Caceres TEL # [phone], (DC ORDER FAX # [phone], CLINICAL FAX # [phone]). SPOKE TO [facility] TOÑA Caceres @ 16:15 PM, WILL FOLLOW UP WITH HER TOMORROW FOR LTAC PLACEMENT. CURRENTLY PATIENT TX WITH LASIX IV DRIP, VENT WITH FIO2 40 %. IV ABX, G TUBE FEEDING. JCC RN CM
--- NOTE | 2019-08-01 18:42 | NUR ---
CLOSING NOTES, PT HAS BEEN STABLE THE WHOLE SHIFT, NO RESP DISTRESS. CONTINUED TO BE ON TRACH TO VENT, NO CHANGE IN SETTING, SUCTION ORALL AND VIA TRACT PRN. PT TOLERATING TUBE FEEDING, NO RESIDUAL NOTED, ALEXUS GIVEN ORDERED. WOUND CARE DONE AND PICTURES TAKEN. IT STILL ON IV LASIX DRIP. WILL ENDORSE TO NIGHT NURSE.
--- NOTE | 2019-08-01 19:35 | NUR ---
OPENING NOTE Received patient resting in bed, eyes close. Nonlabored breathing on ventilator w/ settings as ordered. Lasix infusing via PIIC on MARA. G-tube feeding is running at 55 ml/hr. Bed is locked in lowest position, side rails up 3x, seizure pads on side rails and bed alarm on. She is resting on LOL mattress and has bilat heel protectors, stewart catheter bag is draining to gravity.
[2019-08-01 20:00] VITALS: BP_SYST 146
[2019-08-01] MEDS: LEVOFLOXACIN 500 MG/D5W 100 ML IV SCH (20:56)
[2019-08-01] MEDS: acetaZOLAMIDE 250 MG TABLET (DIAMOX) GT SCH (21:17)
--- NOTE | 2019-08-01 21:20 | NUR ---
medications / water flush Gt tube assessed and no residual noted. Due medications given via G-tube. Free water flush of 10 ml was also given. Patient tolerated. Addendum: 08/02/19 at 0213 by Brooke Sequeira RN Free water flush of 100 ml was provided, not 10 ml.
--- NOTE | 2019-08-02 00:15 | NUR ---
RN rounds Assessed ventilator and settings as ordered, provided oral care and patient was repositioned.
[2019-08-02 00:30] VITALS: BP_SYST 143
--- NOTE | 2019-08-02 02:27 | NUR ---
RN rounds Patient is resting in comfortable position, nonlabored breathing on ventilator, no SOB, IVF infusing well. Tolerating G-tube, Safety, seizure, and aspiration precautions maintained. will continue to monitor.
--- NOTE | 2019-08-02 04:15 | NUR ---
Patient care Assessed ventilator and settings are as ordered. Provided oral care and administered Daniel, patient tolerated.
[2019-08-02] MEDS: metroNIDAZOLE 500 MG TABLET GT SCH ×3 (07:00→20:52)
[2019-08-02 07:25] LABS: CALCIUM 9.5 mg/dL (8.4-11.0); CREATININE 0.47 mg/dL (0.55-1.30); POTASSIUM 3.8 mmol/L (3.5-5.1)
--- NOTE | 2019-08-02 07:34 | NUR ---
RN OPENING NOTE PATIENT IS AWAKE WITH EYES OPEN, NO SIGNS OF ANY DISTRESS, BREATHING IS EQUAL AND NON LABORED. PATIENT HAS ALL SAFETY PRECAUTIONS IN PLACE WELL SEIZURE PRECAUTIONS. NO OTHER NEEDS AT THIS TIME. WILL CONTINUE TO MONITOR.
--- NOTE | 2019-08-02 08:00 | NUR ---
closing note endorsed care
[2019-08-02 08:05] VITALS: BP_SYST 135
[2019-08-02] MEDS: POTASSIUM CHLORIDE 20 MEQ/PKT PACKET GT SCH ×2 (08:20→20:52)
[2019-08-02] MEDS: POTASSIUM CHLORIDE 20 MEQ TAB.PRT.SR PO SCH (08:20)
[2019-08-02] MEDS: LevETIRAcetam 500 MG/5 ML UDC ORAL LIQUID GT SCH ×2 (08:20→20:54)
[2019-08-02] MEDS: FAMOTIDINE 20 MG TABLET GT SCH (08:21)
[2019-08-02] MEDS: BETHANECHOL CHLORIDE 25 MG TABLET (URECHOLINE) GT SCH ×2 (08:21→20:52)
[2019-08-02] MEDS: MAGNESIUM OXIDE 400 MG TABLET GT SCH (08:22)
[2019-08-02] MEDS: CARVEDILOL 3.125 MG TABLET (COREG) PO SCH ×2 (08:22→20:52)
[2019-08-02] MEDS: acetaZOLAMIDE 250 MG TABLET (DIAMOX) GT SCH ×4 (08:22→20:52)
[2019-08-02] MEDS: ASCORBIC ACID 500 MG TABLET PO SCH (08:22)
[2019-08-02] MEDS: DOCUSATE SODIUM 100 MG CAPSULE PO SCH (08:22)
--- NOTE | 2019-08-02 08:22 | NUR ---
medication patients scheduled medication given per order. patient is awake and alert no signs of any distress, all safety and seizure precautions in place. patient is tolerating tube feeding well. no residual. patient has no other needs at this time.
[2019-08-02] MEDS: BALSAM PERU/CASTOR OIL 60 GM OINT...G. TP SCH (08:23)
--- NOTE | 2019-08-02 09:52 | NUR ---
leaking stewart catheter master turpin to be made aware patients catheter is leaking , and also orders for dvt prophlaxis. Addendum: 08/02/19 at 1140 by Renetta Schultz RN incontinence care provided by contingents supervisor with assistance of nurse. patient had a bowel movement. patient shows no signs of any distress, breathing is equal and non labored. patient has all safety and seizure precautions in place. no other needs at this time. will continue to monitor.
[2019-08-02] MEDS: NYSTATIN 15 GM TOPICAL POWDER TP SCH ×2 (10:05→20:53)
--- NOTE | 2019-08-02 11:01 | NUR ---
Dr. Aranda at nurses station informed of leaking Rose orders received to remove current Rose catheter and replace with a larger catheter. scd order also obtained.
--- NOTE | 2019-08-02 11:57 | NUR ---
DC PLANNING FAX LTAC ORDER TO INSURANCE TOÑA Caceres @ FAX # [phone] AND CALLED HER @ # [phone] AT TIME OF 11:55 AM. ODALIS RIZVI CM
[2019-08-02 12:18] VITALS: BP_SYST 128
--- NOTE | 2019-08-02 14:04 | NUR ---
DC PLANNING SPOKE TO INSURANCE CM ALESSIA Caceres @ [phone], ONCE WE HAVE A DC LTAC ORDER, SHE CAN DO AUTHORIZATION. I CALLED DR NICOLE AT 13:55, HE SAID HE WILL CHECK PATIENT TOMORROW'S CONDITION. SPOKE TO PARENTS AT AT 1350 PM, THEY ARE AGREEABLE TO SEND PATIENT TO LTAC VS SUB ACUTE. JCC DMITRI CM
[2019-08-02] MEDS: FUROSEMIDE 100 MG in D5W 90 ML IV SCH (14:55)
--- NOTE | 2019-08-02 15:00 | NUR ---
Rose catheter/ g-tube patients old Rose catheter removed and catheter appears intact. new Rose placed size 28 appear to not be leaking but will continue to monitor. placed per protocol. family is at bed side. patient g-tube is clogged after flushing and milking the line was able to clear the line and is flushing well. patient provided with oral suction. patients family educated inspection and testing supervisor light for assistance. all safety and seizure precautions in place. patient is close to nurses station. will continue to monitor.
[2019-08-02 16:18] VITALS: BP_SYST 106
--- NOTE | 2019-08-02 18:00 | NUR ---
closing note patient catheter appears to be leaking again inserted it a little further clean chucks placed under neath her. patient has all safety and seizure precautions in place. no signs of any distress, breathing is equal and non labored. no other needs at this time.
--- NOTE | 2019-08-02 19:15 | NUR ---
OPENING NOTE Late entry due to patient care. Bedside report received from daysnvft nurse. Patient received lying in bed, No s/s of acute distress noted. Breathing is even, trach to vent attached, operating, settings at: AC 14, FiO2 40, TV 400, PEEP 5. HOB raised. Gtube infusing well. Lasix infusing well, IV site patent, no signs of infiltration or infection noted. Rose attached, secured and draining by gravity. SCDs attached and operating. Heel boot attached on bilateral lower extremities. Lower extremities elevated with pillow. Bed alarm on. Bed is locked and at lowest position. Will continue to monitor.
[2019-08-02 20:00] VITALS: BP_SYST 117
[2019-08-02] MEDS: LEVOFLOXACIN 500 MG/D5W 100 ML IV SCH (20:52)
--- NOTE | 2019-08-02 21:00 | NUR ---
UMANG CARE Patient cleaned by INTERACTIVE VIDEO TECHNICIAN, assisted by RN at this time. Patient tolerating well. All needs met. Bed alarm on. Bed is locked and at lowest position. Will continue to monitor.
--- NOTE | 2019-08-02 22:56 | NUR ---
PAGED PAGED DOCTOR ZAYAS WHO IS CUPOLA OPERATOR INSULATION FOR CHANA
--- NOTE | 2019-08-02 23:00 | NUR ---
ROUNDS Patient asleep. No signs of discomfort noted. Chest rise and fall even bilaterally. Trach to vent, same settings. All needs met. Bed alarm on. Will continue to monitor.
--- NOTE | 2019-08-03 01:00 | NUR ---
ROUNDS Patient in bed resting, eyes closed, appears to be asleep. No s/s of acute distress noted. Breathing even and unlabored. HOB raised. GTUBE infusing well, Lasix infusing well. All needs met. Bed alarm on. Will continue to monitor.
[2019-08-03 02:25] VITALS: BP_SYST 120
--- NOTE | 2019-08-03 03:00 | NUR ---
ROUNDS Patient in bed sleeping at this time. No s/s of acute distress noted. Breathing even and unlabored. HOB raised. Bed alarm on. Will continue to monitor.
[2019-08-03] MEDS: ACETAMINOPHEN 650 MG/20.3 ML UDC GT PRN (04:11)
--- NOTE | 2019-08-03 05:00 | NUR ---
PERICARE Patient cleaned at this time by EDUCATIONAL MANAGER and RN. No signs of discomfort noted. Patient tolerated well. HOB raised. IV Lasix and Gtube infusing well. All needs met Bed alarm on. Will continue to monitor.
[2019-08-03] MEDS: metroNIDAZOLE 500 MG TABLET GT SCH ×3 (05:10→21:22)
--- NOTE | 2019-08-03 06:14 | NUR ---
CLOSING NOTE Patient in bed, no s/s of acute distress noted. Breathing is even and unlabored. HOB raised, trach to vent, settings remained the same, patient tolerating well, SPO2 at 98 on tele monitor. GTUBE feeding infusing well, IV Lasix infusing well, IV site patent, no signs of infiltration or infection noted. Rose attached, secured, and draining by gravity. Heel boots in place, SCDs attached, and operating. Heels elevated with pillow. All needs met throughout shift. Fall, safety, and isolation precautions maintained throughout shift. Will continue to monitor until patient care is endorsed to oncoming dayshift nurse.
[2019-08-03 07:22] LABS: BASOPHILS % (AUTO) 0.4 % (0.0-2.0); EOSINOPHILS # (AUTO) 0.4 K/uL (0.0-0.4); EOSINOPHILS % (AUTO) 3.8 % (0.0-4.0); HEMATOCRIT 33.6 % (36-48); HEMOGLOBIN 11.3 g/dL (12.0-16.0); LYMPHOCYTES # (AUTO) 1.9 K/uL (1.0-5.5); LYMPHOCYTES % (AUTO) 17.7 % (20.5-51.5); MEAN CORPUSCULAR HEMOGLOBIN 35 pg (27-31); MEAN CORPUSCULAR HGB CONC 34 % (32-36); MEAN CORPUSCULAR VOLUME 103 fL (79.0-98.0); MONOCYTES # (AUTO) 1.2 K/uL (0.0-1.0); MONOCYTES % (AUTO) 11.3 % (1.7-9.3); NEUTROPHILS # (AUTO) 7.1 K/uL (1.8-7.7); NEUTROPHILS % (AUTO) 66.8 % (40.0-70.0); PLATELET COUNT (AUTO) 395 K/uL (130-430); RED BLOOD CELL COUNT(AUTO) 3.25 MIL/uL (4.2-6.2); RED CELL DISTRIBUTION WIDTH 16.6 % (9.0-15.0); WHITE BLOOD COUNT (AUTO) 10.7 K/uL (4.8-10.8)
[2019-08-03 07:39] LABS: ALBUMIN 2.8 g/dL (3.4-4.8); CREATININE 0.48 mg/dL (0.55-1.30); POTASSIUM 3.7 mmol/L (3.5-5.1); TOTAL BILIRUBIN 0.3 mg/dL (0.0-1.0)
--- NOTE | 2019-08-03 07:50 | NUR ---
INITIAL NOTE Patient received lying in bed, no s/s of acute distress or sob noted. Breathing is even, trach to vent attached, settings at: AC 14, FiO2 40, TV 400, PEEP 5. HOB raised. Gtube infusing well, patent, flushes and has no residual, pt tolerating feedings. Pt has a picc line on right upper arm, both ports flush and have blood return, dressing clean and dry, non occluded. Rose secured and draining by gravity. SCDs bilaterally in place. Heel lift boots on bilateral lower extremities. Bed alarm on. Bed is locked and at lowest position. Will continue to monitor pt for any changes, fall, seizure and safety precautions in place. Pt on isolation. Pt on an air mattress.
[2019-08-03 08:30] VITALS: BP_SYST 146
[2019-08-03] MEDS: BALSAM PERU/CASTOR OIL 60 GM OINT...G. TP SCH (09:00)
[2019-08-03] MEDS: POTASSIUM CHLORIDE 20 MEQ TAB.PRT.SR PO SCH (09:00)
[2019-08-03] MEDS: MAGNESIUM OXIDE 400 MG TABLET GT SCH (09:26)
[2019-08-03] MEDS: acetaZOLAMIDE 250 MG TABLET (DIAMOX) GT SCH ×2 (09:26→13:13)
[2019-08-03] MEDS: LevETIRAcetam 500 MG/5 ML UDC ORAL LIQUID GT SCH ×2 (09:26→21:23)
[2019-08-03] MEDS: POTASSIUM CHLORIDE 20 MEQ/PKT PACKET GT SCH ×2 (09:26→21:19)
[2019-08-03] MEDS: BETHANECHOL CHLORIDE 25 MG TABLET (URECHOLINE) GT SCH ×2 (09:26→21:19)
[2019-08-03] MEDS: FAMOTIDINE 20 MG TABLET GT SCH (09:26)
[2019-08-03] MEDS: ASCORBIC ACID 500 MG TABLET PO SCH (09:26)
[2019-08-03] MEDS: DOCUSATE SODIUM 100 MG CAPSULE PO SCH (09:26)
[2019-08-03] MEDS: CARVEDILOL 3.125 MG TABLET (COREG) PO SCH ×2 (09:28→21:20)
[2019-08-03] MEDS: NYSTATIN 15 GM TOPICAL POWDER TP SCH ×2 (09:29→21:23)
[2019-08-03] MEDS: MENTHOL/ZINC OXIDE 113 GM OINT. TP PRN (09:58)
[2019-08-03] MEDS ORDERED: SPIRONOLACTONE 50 MG TABLET (ALDACTONE) PO ONE (10:00)
[2019-08-03] MEDS ORDERED: METOPROLOL TARTRATE 25 MG TABLET PO ONE (10:15)
--- NOTE | 2019-08-03 10:30 | NUR ---
ROUNDS PT IN BED, NO S/S OF DISTRESS OR SOB NOTED, PT HAS NO FACIAL GRIMACING NOTED FOR PAIN, PT IN STABLE CONDITION, RESTING COMFORTABLY. WILL CONTINUE TO MONITOR PT FOR ANY CHANGES.
--- NOTE | 2019-08-03 12:00 | NUR ---
ROUNDS PT IN BED, NO S/S OF DISTRESS OR SOB NOTED, PT HAS NO FACIAL GRIMACING NOTED FOR PAIN, PT IN STABLE CONDITION, PT RESTING COMFORTABLY. WILL CONTINUE TO MONITOR PT FOR ANY CHANGES. FAMILY AT BEDSIDE.
[2019-08-03 12:19] VITALS: BP_SYST 121
--- NOTE | 2019-08-03 14:06 | NUR ---
DC PLANNING SPOKE TO INSURANCE CM ALESSIA Caceres AT # [phone], INSURANCE NEEDS THE INTENSIVE SERVICES PRESENTING AT DISCHARGE ORDER IN ORDER TO TRANSFER PATIENT TO LTAC. I SPOKE TO DMITRI ANDERSON WHO WILL INFORM DR NICOLE TO MAKE A DC LTAC ORDER INCLUDING WHAT INTENSIVE CARE SERVICES AT LTAC. I ALSO PROVIDE THE PAPER FORM OF CHOICES OF LTAC TO PARENT AT BS 103A. JCC DMITRI DING
--- NOTE | 2019-08-03 14:37 | NUR ---
DC PLANNING CHART REVIEWED, PATIENT CURRENTLY IS DISCONTINUED IV LASIX DRIP SINCE 08/02/2019 14:55 PM, ON VENT WITH TRACHEOSTOMY FIO2 40% HR 121-111, IV ABX, CONTINUE G TUBE AND WOUND CARE. DUE TO IV LASIX WAS DC, MOST LIKELY LTAC MAY NOT BE QUALIFIED. INFORMED RN AND PARENTS AT . ORIGINAL DC TO LTAC ORDER WILL BE FAXED TO [facility] ALESSIA AT # [phone]. CONTINUE FOLLOW UP WITH DCP NEEDED. ODALIS RIZVI CM Addendum: 08/03/19 at 1547 by Ankit Dao RN DC PLANNING SW AND I SPOKE TO PARENTS ABOUT DCP. PER CURRENT PATIENT CONDITIONS MAY NE BE QUALIFIED TO LTAC DUE TO INSURANCE. PARENTS UNDERSTAND AND REQUEST FOR IF PATIENT CAN GO TO ANOTHER FACILITY WHICH IS [facility]. I CALLED [facility] # [phone], ADMISSION REPLIED TO ME THAT THERE IS FULL HOUSE OF SUBACUTE. CALLED DR NICOLE THAT PATIENT MAY BE NOT APPROVAL BY INSURANCE FOR LTAC. LTAC ORDER HAS BEEN FAXED TO [facility]. HOWEVER, PARENTS AGREE THAT IF NO NEW PLACE PATIENT WILL GO BACK TO [facility] F[facility]. CONTINUE FOLLOW UP WITH DCP. ODALIS RIZVI CM
--- NOTE | 2019-08-03 14:55 | NUR ---
ROUNDS FAMILY AT BEDSIDE, PT IN STABLE CONDITION. NO S/S OF DISTRESS OR SOB NOTED, PT HAS NO FACIAL GRIMACING NOTED FOR PAIN, PT RESTING COMFORTABLY, WILL CONTINUE TO MONITOR PT FOR ANY CHANGES.
--- NOTE | 2019-08-03 15:13 | NUR ---
Marine Photographer: met with pt. PRODUCT DEVELOPMENT SCIENTIST received a referral from Dr. Aranda for code status and hospice PRODUCT DEVELOPMENT SCIENTIST and TOÑA Hull met with family to pt. Joanie Lozoya. CM spoke to family about LTAC and pt. is not able to go to LTAC based on the medication and insurance. Pts. father said he was ok with pt going to [facility] but preferred pt. go to [facility], which is closer to his home. PRODUCT DEVELOPMENT SCIENTIST asked CM if she can look into this. PRODUCT DEVELOPMENT SCIENTIST asked pts mother and father about the code status. Pt. understand that the vent is helping to keep their daughter alive. They told PRODUCT DEVELOPMENT SCIENTIST that they want to have all life sustaining measures to be taken for pt. They want the code to remain FULL CODE. PRODUCT DEVELOPMENT SCIENTIST thanked them and stated she will make documentation of this. PRODUCT DEVELOPMENT SCIENTIST spoke to Jose Jackson to let her know that the pt is to remain full code. CM will check on the space at the [facility]. PRODUCT DEVELOPMENT SCIENTIST will remain available as needed.
--- NOTE | 2019-08-03 15:20 | NUR ---
Nutrition F/U RD reviewed pt's current EMR record including diet Hx, physician notes, nursing notes, pertinent labs/meds/procedures, care trends, and care activity. Admission Dx: Sepsis PMH: chronic respiratory failure, s/p trach, CVA, anoxic brain injury, hydrocephalus w/ LOGISTICS PLANNING ENGINEER shunt, seizure disorder per physician notes Current Diet Order/Nutrition Support: Glucerna 1.5 at 55 ml/hr, Daniel BID, Free Water Flush: 100 ml Q6h via GT x3 days Subjective Info: Pt was seen resting in bed, trach to vent w/ TF infusing as per physician order, and family member at bedside at time of RD visit. Bedscale wt taken: 201# -- c/w admission wt of 200# and current documented wt of 204# taken by nursing staff 08/02/19. RN reported that pt has been tolerating TF well. Current TF regimen remains adequate/appropriate. Skin Integrity Comment: Wyatt scale: 12; RD reviewed Senior Programmer note 07/31/19 Estimated Energy Expenditure (kcals/day) 7178-0524 kcal/day (MSJ x 1.2-1.5 CBW for sepsis) Estimated Protein Required (g/day) 86-114 gm/day (1.5-2 gm/kg Adj IBW for sepsis) Estimated Fluid Required (l/day) 1.8-2.2 L/day (1 ml/kcal/day for maintenance) Problem/Etiology/Signs/Symptoms Increased nutritional needs related to metabolic demands as evidenced by estimated nutritional requirements for sepsis. *ongoing Expected Outcomes/Goals - Monitor tolerance to EN support w/ goal of pt meeting at least 80% of estimated nutritional needs, labs trending WNL, normal GI function, and skin integrity/wt maintenance Dietitian Recommendations * Recommend continuing Glucerna 1.5 at 55 ml/hr, Daniel BID, Free Water Flush: 100 ml Q6h via GT Provides: 2140 kcal/day, 114 gm protein/day, and 1402 ml free water/day Meets: 96% of upper end of estimated caloric needs and 100% of upper end of estimated protein needs Follow Up Moderate Risk: F/U in 3-5 days
--- NOTE | 2019-08-03 15:24 | NUR ---
Dietitian Recommendations * Recommend continuing Glucerna 1.5 at 55 ml/hr, Daniel BID, Free Water Flush: 100 ml Q6h via GT Provides: 2140 kcal/day, 114 gm protein/day, and 1402 ml free water/day Meets: 96% of upper end of estimated caloric needs and 100% of upper end of estimated protein needs LP, RD Please refer to Nutrition F/U for details.
--- NOTE | 2019-08-03 15:48 | NUR ---
ATTENDING MD DR NICOLE WAS CALLED RE: CLARIFICATION OF DC ORDER TO LTAC. SPOKE TO RICHARD.
[2019-08-03 15:56] VITALS: BP_SYST 127
--- NOTE | 2019-08-03 15:56 | NUR ---
MD CALL SPOKE WITH DR NICOLE IN REGARDS TO D/C AND PER MD TO JUST HOLD D/C FOR NOW, SPOKE WITH DISCHARGE PLANNING AND THEY FAXED OVER FOR PT TO GO BACK TO [facility].
--- NOTE | 2019-08-03 18:37 | NUR ---
CLOSING NOTE Patient in bed, no s/s of acute distress or sob noted. Breathing is even, trach to vent attached, settings at: AC 14, FiO2 40, TV 400, PEEP 5. HOB raised. G-tube infusing well, no residual, pt tolerating feedings. Rose secured and draining by gravity. SCDs bilaterally in place. Heel lift boots on bilateral lower extremities. Bed alarm on. Bed is locked and at lowest position. Will endorse care of pt to incoming nurse, fall, seizure and safety precautions in place. Pt on isolation. Pt on an air mattress.
--- NOTE | 2019-08-03 19:05 | NUR ---
OPENING NOTE Bedside report received from dayshift nurse. Patient received lying in bed, No s/s of acute distress noted. Breathing is even, trach to vent attached, operating, settings at: AC 14, FiO2 40, TV 400, PEEP 5. HOB raised. Gtube infusing well. IV site patent, no signs of infiltration or infection noted. Rose attached, secured and draining by gravity. SCDs attached and operating. Heel boot attached on bilateral lower extremities. Lower extremities elevated with pillow. Bed alarm on. Bed is locked and at lowest position. Will continue to monitor.
[2019-08-03 20:00] VITALS: BP_SYST 155
[2019-08-03] MEDS ORDERED: METOPROLOL TARTRATE 25 MG TABLET PO SCH (21:00)
[2019-08-03] MEDS ORDERED: SPIRONOLACTONE 50 MG TABLET (ALDACTONE) PO SCH (21:00)
--- NOTE | 2019-08-03 23:00 | NUR ---
PERICARE Patient cleaned at this time by CORRECTIONAL MAINTENANCE TECHNICIAN. Patient tolerated well. All needs met. HOB raised. GTUBE infusing well. Call light with patient. Bed alarm on. Will continue to monitor.
[2019-08-03] MEDS: COLISTIMETHATE SODIUM 150 MG VIAL INH SCH (23:19)
[2019-08-04 00:24] VITALS: BP_SYST 132
--- NOTE | 2019-08-04 01:00 | NUR ---
ROUNDS Patient eyes closed, appears to be asleep. No s/s of acute distress noted. HOB raised. All needs met at this time. Bed alarm on. Will continue to monitor.
--- NOTE | 2019-08-04 03:00 | NUR ---
ROUNDS Patient sleeping at this time. No s/s of acute distress noted. Breathing even and unlabored. HOB raised. GTUBE infusing well. All needs met. Bed alarm on. Will continue to monitor.
--- NOTE | 2019-08-04 04:55 | NUR ---
UMANG CARE/WOUND CARE Patient cleaned at this time by BRASSWIND INSTRUMENT REPAIRER and RN. Wound care done at this time. Patient tolerated well. HOB raised. All needs met. Bed alarm on. Will continue to monitor.
[2019-08-04] MEDS: metroNIDAZOLE 500 MG TABLET GT SCH ×3 (05:12→22:20)
--- NOTE | 2019-08-04 06:21 | NUR ---
CLOSING NOTES Patient in bed, eyes closed, appears to be asleep. No s/s of acute distress noted. Breathing even and unlabored. HOB raised. GTUBE infusing well. Trach to vent, settings still the same, patient tolerating well, SPO2 at 98 on tele monitor. SCDs attached and operating. Heel boots attached bilateral lower extremities. Rose attached, secured, and draining by gravity. All needs met throughout shift. Fall, safety, and isolation precaution maintained throughout shift. Will continue to monitor until patient care is endorsed to oncoming dayshift nurse.
[2019-08-04 07:20] LABS: BASOPHILS # (AUTO) 0.1 K/uL (0.0-0.2); BASOPHILS % (AUTO) 0.7 % (0.0-2.0); EOSINOPHILS # (AUTO) 0.6 K/uL (0.0-0.4); EOSINOPHILS % (AUTO) 5.3 % (0.0-4.0); HEMATOCRIT 33.9 % (36-48); HEMOGLOBIN 11.3 g/dL (12.0-16.0); LYMPHOCYTES # (AUTO) 2.3 K/uL (1.0-5.5); LYMPHOCYTES % (AUTO) 19.4 % (20.5-51.5); MEAN CORPUSCULAR HEMOGLOBIN 35 pg (27-31); MEAN CORPUSCULAR HGB CONC 34 % (32-36); MEAN CORPUSCULAR VOLUME 103 fL (79.0-98.0); MONOCYTES # (AUTO) 1.5 K/uL (0.0-1.0); MONOCYTES % (AUTO) 12.7 % (1.7-9.3); NEUTROPHILS # (AUTO) 7.5 K/uL (1.8-7.7); NEUTROPHILS % (AUTO) 61.9 % (40.0-70.0); PLATELET COUNT (AUTO) 422 K/uL (130-430); RED BLOOD CELL COUNT(AUTO) 3.29 MIL/uL (4.2-6.2); RED CELL DISTRIBUTION WIDTH 16.6 % (9.0-15.0)
--- NOTE | 2019-08-04 07:20 | NUR ---
OPENING NOTE Patient resting in the bed with eye closed. No acute distress. Trach intact to vent. HOB elevated. GT intact, patent, no residual. ON Glucerna 1.5 at 55ml/hr. Skin warm and dry to touch. PICC line intact to MARA, no redness, no swelling, covered with clean and dry transparent dressing. F/C intact, drain gravity. On contact isolation. Safety measure maintained. Bed locked in low position, side rails up, bed alarm on. Call light within reached. Will continue to monitor.
[2019-08-04 07:21] LABS: CALCIUM 9.5 mg/dL (8.4-11.0); CREATININE 0.48 mg/dL (0.55-1.30); POTASSIUM 3.9 mmol/L (3.5-5.1)
[2019-08-04] MEDS: COLISTIMETHATE SODIUM 150 MG VIAL INH SCH ×2 (07:54→20:47)
[2019-08-04] MEDS ORDERED: CARVEDILOL 3.125 MG TABLET (COREG) GT SCH (08:02)
--- NOTE | 2019-08-04 09:05 | NUR ---
SEEN AND EXAMINED BY XENIA MICHELE.
[2019-08-04] MEDS: BALSAM PERU/CASTOR OIL 60 GM OINT...G. TP SCH (09:35)
[2019-08-04] MEDS: MENTHOL/ZINC OXIDE 113 GM OINT. TP PRN (09:35)
[2019-08-04] MEDS: ASCORBIC ACID 500 MG TABLET GT SCH (09:36)
[2019-08-04] MEDS: DOCUSATE SODIUM 100 MG/10 ML UDC GT SCH (09:36)
[2019-08-04] MEDS: POTASSIUM CHLORIDE 20 MEQ/PKT PACKET GT SCH ×2 (09:36→22:18)
[2019-08-04] MEDS: FAMOTIDINE 20 MG TABLET GT SCH (09:36)
[2019-08-04] MEDS: MAGNESIUM OXIDE 400 MG TABLET GT SCH (09:36)
[2019-08-04] MEDS: NYSTATIN 15 GM TOPICAL POWDER TP SCH ×2 (09:37→22:21)
[2019-08-04] MEDS: SPIRONOLACTONE 50 MG TABLET (ALDACTONE) GT SCH ×2 (09:37→22:19)
[2019-08-04] MEDS: BETHANECHOL CHLORIDE 25 MG TABLET (URECHOLINE) GT SCH ×2 (09:37→22:20)
[2019-08-04] MEDS: LevETIRAcetam 500 MG/5 ML UDC ORAL LIQUID GT SCH ×2 (09:39→22:18)
[2019-08-04] MEDS: METOPROLOL TARTRATE 25 MG TABLET GT SCH ×2 (09:47→22:20)
--- NOTE | 2019-08-04 10:02 | NUR ---
SEEN AND EXAMINED BY DERRICK JOHANSEN.
[2019-08-04 11:12] VITALS: BP_SYST 126
--- NOTE | 2019-08-04 12:00 | NUR ---
TURNED AND REPOSITIONED PATIENT WITH PULMONARY PHYSICIAN Patient resting in the bed. No acute distress. Trach intact to vent. GT intact, GT feeding tolerated well. HOB elevated. F/C intact, drain gravity. Safety measure maintained. Call light within reached. Bed locked in low position, side rails up, bed alarm on. Continue to monitor.
--- NOTE | 2019-08-04 12:31 | NUR ---
Case mgt: Per Ronna at [facility], discharge/transfer order was pending and our cm was to fax dc order (once obtained from ) to [facility] for authorization--pt off IV Lasix, IV meds-pt is chronic trach/vent--might not meet criteria possibly--Ronna will f/u Tuesday on insurance --CARY RIZVI
--- NOTE | 2019-08-04 14:10 | NUR ---
SEEN AND EXAMINED BY DR. [facility].
[2019-08-04 15:20] VITALS: BP_SYST 136
--- NOTE | 2019-08-04 16:05 | NUR ---
BM Patient with BM noted. Changed with PLATE PRINTER together. Good perirectal care provided. Dressing on buttocks soil, wound care done and dressing changed, procedure tolerated well. Continue on contact isolation. F/C intact, drain gravity. Safety maintained. Call light within reached. Bed locked in low position, side rails up, bed alarm on. Family at bedside. Continue to monitor.
--- NOTE | 2019-08-04 17:15 | NUR ---
ROUND Patient resting in the bed. No acute distress. Trach intact to vent. Continue on GT feeding, tolerated well. HOB elevated. F/C intact, drain gravity. Family at bedside. Contact isolation maintained. Call light within reached. Bed locked in low position, side rails up, bed alarm on. Continue to monitor.
--- NOTE | 2019-08-04 18:52 | NUR ---
CLOSING NOTE Patient resting in the bed with eye closed. No acute distress. HOB elevated. Trach intact to vent. HOB elevated. GT intact, patent, no residual. On Glucerna 1.5 at 55ml/hr, tolerated well. Skin warm and dry to touch. PICC line intact to MARA, no redness, no swelling, covered with clean and dry transparent dressing. F/C intact, drain gravity. Contact isolation maintained. All needs met. Safety measure maintained. Bed locked in low position, side rails up, bed alarm on. Call light within reached. Will endorse to night nurse.
[2019-08-04 20:00] VITALS: BP_SYST 155
--- NOTE | 2019-08-04 21:00 | NUR ---
ROUNDS: Patient sleeping at this time. No s/s of acute distress noted. Breathing even and unlabored. HOB raised. GTUBE infusing well. Rose attached, secure, and draining by gravity. All needs met. Bed alarm on. Bed locked and in lowest position. Will continue to monitor.
[2019-08-05] VITALS (10 sets, daily range): BP systolic 118–160
--- NOTE | 2019-08-05 01:00 | NUR ---
ROUNDS: Patient is still sleeping at this time. No s/s of acute distress noted. Breathing even and unlabored. HOB raised. GTUBE infusing well. Rose attached, secure, and draining by gravity. All needs met. Bed alarm on. Bed locked and in lowest position. Will continue to monitor.
--- NOTE | 2019-08-05 05:00 | NUR ---
WOUND/UMANG CARE: Performed wound care, following wound care orders. Umang care done with RN and RECYCLABLE MATERIALS DISTRIBUTOR. Patient tolerated well. All needs met. Will continue to monitor. Bed is locked in lowest position. Bed alarm on.
[2019-08-05] MEDS: metroNIDAZOLE 500 MG TABLET GT SCH ×3 (05:35→22:50)
--- NOTE | 2019-08-05 06:19 | NUR ---
CLOSING NOTE: Patient is sleeping at this time. No s/s of acute distress noted. Breathing even and unlabored. Trach to vent attached and operating with same settings. HOB raised. GTUBE infusing well. Rose attached, secure, and draining by gravity. Heel boot on bilateral lower extremities with SCDs attached and operating. IV site is patent w/o signs of infiltration and infection. All needs met throughout the shift. Bed alarm on. Bed locked and in lowest position. Fall, safety, and isolation precautions maintained throughout the shift. Will continue to monitor until endorsed to dayshift nurse.
--- NOTE | 2019-08-05 07:25 | NUR ---
OPENING NOTE Patient resting in the bed. No acute distress. Trach intact to vent. HOB elevated. GT intact, patent, no residual. On Glucerna 1.5 at 55ml/hr. Skin warm and dry to touch. PICC line intact to MARA, no redness, no swelling, patent, covered with clean and dry transparent dressing. F/C intact, drain gravity. On contact isolation. Safety measure maintained. Bed locked in low position, padded side rails up, bed alarm on. Call light within reached. Will continue to monitor.
[2019-08-05 07:34] LABS: BASOPHILS # (AUTO) 0.1 K/uL (0.0-0.2); BASOPHILS % (AUTO) 1.1 % (0.0-2.0); CALCIUM 9.5 mg/dL (8.4-11.0); CREATININE 0.39 mg/dL (0.55-1.30); EOSINOPHILS # (AUTO) 0.8 K/uL (0.0-0.4); EOSINOPHILS % (AUTO) 7.2 % (0.0-4.0); HEMATOCRIT 33.9 % (36-48); HEMOGLOBIN 11.1 g/dL (12.0-16.0); LYMPHOCYTES # (AUTO) 2.8 K/uL (1.0-5.5); LYMPHOCYTES % (AUTO) 25.1 % (20.5-51.5); MEAN CORPUSCULAR HEMOGLOBIN 34 pg (27-31); MEAN CORPUSCULAR HGB CONC 33 % (32-36); MEAN CORPUSCULAR VOLUME 104 fL (79.0-98.0); MONOCYTES # (AUTO) 1.4 K/uL (0.0-1.0); MONOCYTES % (AUTO) 12.5 % (1.7-9.3); NEUTROPHILS # (AUTO) 6.1 K/uL (1.8-7.7); NEUTROPHILS % (AUTO) 54.1 % (40.0-70.0); PLATELET COUNT (AUTO) 428 K/uL (130-430); POTASSIUM 4.3 mmol/L (3.5-5.1); RED BLOOD CELL COUNT(AUTO) 3.26 MIL/uL (4.2-6.2); RED CELL DISTRIBUTION WIDTH 17.6 % (9.0-15.0); TOTAL BILIRUBIN 0.3 mg/dL (0.0-1.0); WHITE BLOOD COUNT (AUTO) 11.3 K/uL (4.8-10.8)
[2019-08-05] MEDS: COLISTIMETHATE SODIUM 150 MG VIAL INH SCH ×2 (07:56→20:20)
[2019-08-05] MEDS: LevETIRAcetam 500 MG/5 ML UDC ORAL LIQUID GT SCH ×2 (09:23→22:52)
[2019-08-05] MEDS: MENTHOL/ZINC OXIDE 113 GM OINT. TP PRN (09:23)
[2019-08-05] MEDS: BALSAM PERU/CASTOR OIL 60 GM OINT...G. TP SCH (09:23)
[2019-08-05] MEDS: SPIRONOLACTONE 50 MG TABLET (ALDACTONE) GT SCH ×2 (09:24→22:51)
[2019-08-05] MEDS: FAMOTIDINE 20 MG TABLET GT SCH (09:24)
[2019-08-05] MEDS: BETHANECHOL CHLORIDE 25 MG TABLET (URECHOLINE) GT SCH ×2 (09:24→22:50)
[2019-08-05] MEDS: ASCORBIC ACID 500 MG TABLET GT SCH (09:24)
[2019-08-05] MEDS: POTASSIUM CHLORIDE 20 MEQ/PKT PACKET GT SCH ×2 (09:24→22:52)
[2019-08-05] MEDS: DOCUSATE SODIUM 100 MG/10 ML UDC GT SCH (09:24)
[2019-08-05] MEDS: METOPROLOL TARTRATE 25 MG TABLET GT SCH ×2 (09:25→22:50)
[2019-08-05] MEDS: NYSTATIN 15 GM TOPICAL POWDER TP SCH ×2 (09:25→22:53)
[2019-08-05] MEDS: MAGNESIUM OXIDE 400 MG TABLET GT SCH (09:25)
--- NOTE | 2019-08-05 09:51 | NUR ---
SEEN AND EXAMINED BY DERRICK JOHANSEN WITH ORDER RECEIVED.
[2019-08-05] MEDS ORDERED: FUROSEMIDE 40 MG TABLET GT ONE (10:00)
--- NOTE | 2019-08-05 10:36 | NUR ---
SEEN AND EXAMINED BY XENIA MICHELE.
[2019-08-05] MEDS ORDERED: acetaZOLAMIDE 250 MG TABLET (DIAMOX) PO ONE (11:45)
--- NOTE | 2019-08-05 12:11 | NUR ---
SEEN AND EXAMINED BY CASSANDRA PEÑA WITH ORDER RECEIVED.
--- NOTE | 2019-08-05 13:40 | NUR ---
ROUND Patient resting in the bed. No acute distress. Trach intact to vent. HOB elevated. GT intact, patent, continue on GT feeding, tolerated well. Family at bedside. F/C intact, drain gravity. Continue on contact isolation. Safety measure maintained. Call light within reached. Bed locked in low position, padded side rails up, bed alarm on. Continue to monitor.
[2019-08-05] MEDS ORDERED: acetaZOLAMIDE 250 MG TABLET (DIAMOX) PO SCH (15:00)
--- NOTE | 2019-08-05 16:32 | NUR ---
SU=[id number] IN THE HEART MONITOR Noted the patient with HM=865 in the monitor. checked B/P=160/104, T=98.5, R=20, O2 sat=97%. Skin warm and dry to touch. Called [facility] and waited to call back.
--- NOTE | 2019-08-05 16:44 | NUR ---
RECEIVED THE CALL BACK FROM CASSANDRA PEÑA WITH ORDER NOTED AND CARRIED OUT.
[2019-08-05] MEDS ORDERED: cloNIDine HCL 0.2 MG TABLET GT PRN (16:45)
--- NOTE | 2019-08-05 16:51 | NUR ---
CARDIZEM 60MG VIA GT GIVEN ORDERED B/P=156/97, P=145. Safety measure maintained. Call light within reached. Will close monitoring the B/P and HR.
[2019-08-05] MEDS ORDERED: DILTIAZEM HCL 30 MG TABLET GT ONE (17:00)
--- NOTE | 2019-08-05 17:30 | NUR ---
RECHECKED LL=366/90, P=145, NO ACUTE DISTRESS.
--- NOTE | 2019-08-05 18:56 | NUR ---
CLOSING NOTE Patient resting in the bed. No acute distress. HOB elevated. Trach intact to vent. HOB elevated. GT intact, patent, no residual. On Glucerna 1.5 at 55ml/hr, tolerated well. Skin warm and dry to touch. PICC line intact to MARA, no redness, no swelling, covered with clean and dry transparent dressing. F/C intact, drain gravity. Contact isolation maintained. All needs met. No seizure activity noted. VS: T=97.9. P=143, R=20, B/P=136/82, O2 sat=97%. Safety measure maintained. Bed locked in low position, side rails up, bed alarm on. Call light within reached. Will endorse to night nurse.
[2019-08-05] MEDS: acetaZOLAMIDE 250 MG TABLET (DIAMOX) PO SCH (22:52)
[2019-08-06 00:50] VITALS: BP_SYST 149
[2019-08-06] MEDS: DILTIAZEM HCL 30 MG TABLET GT SCH ×5 (01:40→23:47)
[2019-08-06] MEDS: metroNIDAZOLE 500 MG TABLET GT SCH (06:05)
[2019-08-06 08:00] VITALS: BP_SYST 119
--- NOTE | 2019-08-06 08:00 | NUR ---
INITIAL NOTES Patient in bed, eyes open. Tolerating vent settings. Tolerating Gtube feeding. Temperature 0f 101.4. Tepid sponge bath done. Placed ice packs. Will give tylenol. Suctioning and oral care done. Repositioned. Safety precautions in place. Will monitor.
[2019-08-06] MEDS: COLISTIMETHATE SODIUM 150 MG VIAL INH SCH ×2 (08:03→20:16)
[2019-08-06] MEDS: FAMOTIDINE 20 MG TABLET GT SCH (08:17)
[2019-08-06] MEDS: ACETAMINOPHEN 650 MG/20.3 ML UDC GT PRN ×3 (08:17→21:30)
[2019-08-06] MEDS: acetaZOLAMIDE 250 MG TABLET (DIAMOX) PO SCH ×2 (08:18→21:26)
[2019-08-06] MEDS: ASCORBIC ACID 500 MG TABLET GT SCH (08:18)
[2019-08-06] MEDS: SPIRONOLACTONE 50 MG TABLET (ALDACTONE) GT SCH ×2 (08:19→21:28)
[2019-08-06] MEDS: BETHANECHOL CHLORIDE 25 MG TABLET (URECHOLINE) GT SCH ×2 (08:19→21:26)
[2019-08-06] MEDS: MAGNESIUM OXIDE 400 MG TABLET GT SCH (08:19)
[2019-08-06] MEDS: FUROSEMIDE 40 MG TABLET GT SCH (08:19)
[2019-08-06] MEDS: LevETIRAcetam 500 MG/5 ML UDC ORAL LIQUID GT SCH ×2 (08:20→21:29)
[2019-08-06] MEDS: POTASSIUM CHLORIDE 20 MEQ/PKT PACKET GT SCH ×2 (08:20→21:26)
[2019-08-06] MEDS: NYSTATIN 15 GM TOPICAL POWDER TP SCH ×2 (08:22→21:28)
[2019-08-06] MEDS: METOPROLOL TARTRATE 25 MG TABLET GT SCH ×2 (08:22→21:27)
[2019-08-06] MEDS: BALSAM PERU/CASTOR OIL 60 GM OINT...G. TP SCH (08:22)
[2019-08-06] MEDS: DOCUSATE SODIUM 100 MG/10 ML UDC GT SCH (08:23)
--- NOTE | 2019-08-06 11:56 | NUR ---
Afebrile. Heart rate ranging between 125-135 bpm at this time. Tolerating vent settings. Tolerating Gtube feeding. Repositioned. Oral care done. Seen by Dr. Avendaño. Made new orders. Will continue to monitor.
[2019-08-06 12:19] VITALS: BP_SYST 126
--- NOTE | 2019-08-06 12:20 | NUR ---
MD ROUNDS Dr. Schmitt at bedside. Made aware of heart rate of 150's this morning.
--- NOTE | 2019-08-06 12:21 | NUR ---
Discharge Planning: DCP faxed Kathi DING at [facility] ([phone] p [phone]) DC and updated clinicals. DCP to follow up
--- NOTE | 2019-08-06 14:10 | NUR ---
MD ROUNDS Seen by Dr. Aranda. Made aware of patient's spiking fever and increased heart rate.
[2019-08-06] MEDS: AZTREONAM 1 GM in NS 50 ML IV SCH ×2 (14:15→21:25)
[2019-08-06 16:54] VITALS: BP_SYST 131
--- NOTE | 2019-08-06 18:27 | NUR ---
CLOSING NOTES Asleep. Afebrile. Tolerating mech vent settings. Tolerating Gtube feeding. Repositioned. Safety precautions maintained. Will endorse.
[2019-08-06 20:00] VITALS: BP_SYST 116
[2019-08-07 00:58] VITALS: BP_SYST 114
[2019-08-07] MEDS: AZTREONAM 1 GM in NS 50 ML IV SCH ×2 (05:43→13:21)
[2019-08-07] MEDS: DILTIAZEM HCL 30 MG TABLET GT SCH ×3 (05:45→18:04)
[2019-08-07] MEDS: ACETAMINOPHEN 650 MG/20.3 ML UDC GT PRN ×3 (05:46→20:18)
[2019-08-07 07:06] LABS: BASOPHILS # (AUTO) 0.1 K/uL (0.0-0.2); EOSINOPHILS # (AUTO) 0.8 K/uL (0.0-0.4); HEMATOCRIT 36.8 % (36-48); HEMOGLOBIN 11.8 g/dL (12.0-16.0); LYMPHOCYTES % (AUTO) 23.6 % (20.5-51.5); MEAN CORPUSCULAR HEMOGLOBIN 34 pg (27-31); MEAN CORPUSCULAR HGB CONC 32 % (32-36); MEAN CORPUSCULAR VOLUME 106 fL (79.0-98.0); MONOCYTES # (AUTO) 1.4 K/uL (0.0-1.0); MONOCYTES % (AUTO) 10.8 % (1.7-9.3); NEUTROPHILS # (AUTO) 7.5 K/uL (1.8-7.7); NEUTROPHILS % (AUTO) 58.6 % (40.0-70.0); PLATELET COUNT (AUTO) 352 K/uL (130-430); RED BLOOD CELL COUNT(AUTO) 3.47 MIL/uL (4.2-6.2); RED CELL DISTRIBUTION WIDTH 18.4 % (9.0-15.0); WHITE BLOOD COUNT (AUTO) 12.8 K/uL (4.8-10.8)
[2019-08-07 07:21] LABS: ALBUMIN 2.8 g/dL (3.4-4.8); CALCIUM 8.9 mg/dL (8.4-11.0); CREATININE 0.54 mg/dL (0.55-1.30); POTASSIUM 4.1 mmol/L (3.5-5.1); TOTAL BILIRUBIN 0.2 mg/dL (0.0-1.0)
[2019-08-07] MEDS: COLISTIMETHATE SODIUM 150 MG VIAL INH SCH ×2 (07:34→19:42)
--- NOTE | 2019-08-07 07:48 | NUR ---
Patient is receiving breathing treatment at this moment, she is not aware or oriented, she is running a fever and is tachycardic. Will give tylenol and initiate cooling measures. Bed is low, locked, 2 side rails up and call light is within reach. Yumiko RIZVI
[2019-08-07] MEDS: MAGNESIUM OXIDE 400 MG TABLET GT SCH (08:31)
[2019-08-07] MEDS: acetaZOLAMIDE 250 MG TABLET (DIAMOX) PO SCH ×2 (08:32→20:11)
[2019-08-07] MEDS: ASCORBIC ACID 500 MG TABLET GT SCH (08:33)
[2019-08-07] MEDS: FAMOTIDINE 20 MG TABLET GT SCH (08:33)
[2019-08-07] MEDS: FUROSEMIDE 40 MG TABLET GT SCH (08:36)
[2019-08-07] MEDS: BETHANECHOL CHLORIDE 25 MG TABLET (URECHOLINE) GT SCH ×2 (08:36→20:11)
[2019-08-07] MEDS: SPIRONOLACTONE 50 MG TABLET (ALDACTONE) GT SCH ×2 (08:36→20:12)
[2019-08-07] MEDS: METOPROLOL TARTRATE 25 MG TABLET GT SCH ×2 (08:38→20:11)
[2019-08-07] MEDS: DOCUSATE SODIUM 100 MG/10 ML UDC GT SCH (08:38)
[2019-08-07] MEDS: POTASSIUM CHLORIDE 20 MEQ/PKT PACKET GT SCH ×2 (08:38→20:11)
[2019-08-07 08:55] VITALS: BP_SYST 143
[2019-08-07] MEDS: LevETIRAcetam 500 MG/5 ML UDC ORAL LIQUID GT SCH ×2 (09:04→20:12)
--- NOTE | 2019-08-07 10:00 | NUR ---
Patient is ot showing signs of distress, tylenol and cooling measures brought down the fever. I gave her meds and the gtube was clogged, I was able to unclog it and give her meds without any problem. Bed is low, locked, 2 side rails up and call light is within reach. Yumiko RIZVI
[2019-08-07] MEDS: BALSAM PERU/CASTOR OIL 60 GM OINT...G. TP SCH (10:24)
[2019-08-07] MEDS: NYSTATIN 15 GM TOPICAL POWDER TP SCH ×2 (10:24→23:10)
[2019-08-07 12:10] VITALS: BP_SYST 135
--- NOTE | 2019-08-07 12:36 | NUR ---
Patient is doing well, still tachycardic, did mention it to the doctor and he said it was because of the fevers. She does not seem in distress, cooling measures are keeping her fever down. Bed is low, locked, 2 side rails up and call light is within reach. Yumiko RIZVI
--- NOTE | 2019-08-07 14:39 | NUR ---
Patients father and mother are at bedside, her fevers are down, she is doing well, we changed her and cleaned her. Bed is low, locked, 2 side rails up and call light is within reach. Yumiko RIZVI
[2019-08-07 16:12] VITALS: BP_SYST 137
--- NOTE | 2019-08-07 19:20 | NUR ---
OPENING NOTE Received patient resting in bed, eyes close. Nonlabored breathing on ventilator w/ settings as ordered. PIIC on MARA. G-tube feeding is running at 55 ml/hr. Bed is locked in lowest position, side rails up 3x, seizure pads on side rails and bed alarm on. She is resting on LOL mattress and has bilat heel protectors, stewart catheter bag is draining to gravity.
--- NOTE | 2019-08-07 19:30 | NUR ---
Dr. Keshia Schmitt at nursing station and he was made aware of patient HR-145. He said continue with Metropolol, no new orders.
[2019-08-07 20:00] VITALS: BP_SYST 126
[2019-08-07] MEDS: SULFAMET 800MG/TMP 160MG, 20 ML UDBTL GT SCH (20:17)
--- NOTE | 2019-08-07 20:30 | NUR ---
temp 99.7, HR 147 g-tube assessed and no residual noted. Due medications given via G-Tube. Patient has temp 99.7 (temporal scan); Tylenol was given and cooling measures provided. Will continue to monitor.
--- NOTE | 2019-08-07 21:28 | NUR ---
Reassess temp Temp decreased to 98.8 and HR is presently 121. Will continue to monitor.
[2019-08-07 22:09] VITALS: BP_SYST 126
[2019-08-08 00:08] VITALS: BP_SYST 135
[2019-08-08] MEDS: DILTIAZEM HCL 30 MG TABLET GT SCH ×4 (00:31→18:03)
--- NOTE | 2019-08-08 00:31 | NUR ---
Cardizem due Cardiem given, HR 129, B/P 126/81. Provided oral care, reposition-turned.
[2019-08-08] MEDS: ACETAMINOPHEN 650 MG/20.3 ML UDC GT PRN ×2 (02:33→18:03)
--- NOTE | 2019-08-08 02:33 | NUR ---
G-tube feeding / patient care Replaced empty feeding bottle with new bottle and new tubing. Patient had temp of 99.9 and administered Tylenol via G-tube with water flush as ordered. Patient had loose formed bowel movement and was assisted by TOOL AND DIE INSPECTOR in provided pericare and bed bath. Provided CHG bath. Dressing on buttocks was soiled and provided wound care, took pictures and applied new dressing. Repositioned and provided cooling measures. Will continue to monitor.
--- NOTE | 2019-08-08 03:34 | NUR ---
Reassess temp Temp decreased to 98.8
--- NOTE | 2019-08-08 06:04 | NUR ---
Lab draw xray tech is at bedside for blood draw.
--- NOTE | 2019-08-08 06:30 | NUR ---
PIIC dressing change late entry d/t patient care, dressing change done per policyl
[2019-08-08 06:33] LABS: BASOPHILS # (AUTO) 0.1 K/uL (0.0-0.2); BASOPHILS % (AUTO) 0.6 % (0.0-2.0); EOSINOPHILS # (AUTO) 0.5 K/uL (0.0-0.4); EOSINOPHILS % (AUTO) 3.9 % (0.0-4.0); HEMATOCRIT 36.7 % (36-48); HEMOGLOBIN 11.7 g/dL (12.0-16.0); LYMPHOCYTES % (AUTO) 21.7 % (20.5-51.5); MEAN CORPUSCULAR HEMOGLOBIN 34 pg (27-31); MEAN CORPUSCULAR HGB CONC 32 % (32-36); MEAN CORPUSCULAR VOLUME 106 fL (79.0-98.0); MONOCYTES # (AUTO) 1.7 K/uL (0.0-1.0); MONOCYTES % (AUTO) 12.2 % (1.7-9.3); NEUTROPHILS # (AUTO) 8.6 K/uL (1.8-7.7); NEUTROPHILS % (AUTO) 61.6 % (40.0-70.0); PLATELET COUNT (AUTO) 319 K/uL (130-430); RED BLOOD CELL COUNT(AUTO) 3.45 MIL/uL (4.2-6.2); RED CELL DISTRIBUTION WIDTH 17.6 % (9.0-15.0); WHITE BLOOD COUNT (AUTO) 13.9 K/uL (4.8-10.8)
[2019-08-08 06:53] LABS: ALBUMIN 2.9 g/dL (3.4-4.8); CALCIUM 8.6 mg/dL (8.4-11.0); CREATININE 0.65 mg/dL (0.55-1.30); TOTAL BILIRUBIN 0.2 mg/dL (0.0-1.0)
[2019-08-08] MEDS: COLISTIMETHATE SODIUM 150 MG VIAL INH SCH (07:23)
--- NOTE | 2019-08-08 07:25 | NUR ---
closing note endorse report, patient stable
--- NOTE | 2019-08-08 07:39 | NUR ---
Patient is better than yesterday, her vitals are stable for the exception of the pulse. Her g-tube and PICC line is patent, she does not have a fever. Bed is low and locked, 2 side rails are up, call light is within reach. Yumiko RIZVI
[2019-08-08 08:00] VITALS: BP_SYST 128
[2019-08-08] MEDS: SULFAMET 800MG/TMP 160MG, 20 ML UDBTL GT SCH (08:57)
[2019-08-08] MEDS: FAMOTIDINE 20 MG TABLET GT SCH (08:57)
[2019-08-08] MEDS: ASCORBIC ACID 500 MG TABLET GT SCH (08:57)
[2019-08-08] MEDS: BETHANECHOL CHLORIDE 25 MG TABLET (URECHOLINE) GT SCH (08:58)
[2019-08-08] MEDS: POTASSIUM CHLORIDE 20 MEQ/PKT PACKET GT SCH (08:58)
[2019-08-08] MEDS: MAGNESIUM OXIDE 400 MG TABLET GT SCH (08:58)
[2019-08-08] MEDS: SPIRONOLACTONE 50 MG TABLET (ALDACTONE) GT SCH (08:59)
[2019-08-08] MEDS: METOPROLOL TARTRATE 25 MG TABLET GT SCH (09:00)
[2019-08-08] MEDS: DOCUSATE SODIUM 100 MG/10 ML UDC GT SCH (09:00)
[2019-08-08] MEDS: NYSTATIN 15 GM TOPICAL POWDER TP SCH (09:01)
[2019-08-08] MEDS: BALSAM PERU/CASTOR OIL 60 GM OINT...G. TP SCH (09:01)
[2019-08-08] MEDS: acetaZOLAMIDE 250 MG TABLET (DIAMOX) PO SCH (09:15)
[2019-08-08] MEDS: LevETIRAcetam 500 MG/5 ML UDC ORAL LIQUID GT SCH (09:15)
--- NOTE | 2019-08-08 10:00 | NUR ---
Patient vitals are more stable, free water and medications were given without any problems with the g-tube. Patients parents cam e to visit and are by her side. Bed is low and locked, 2 side rails are up, call light is within reach. Yumiko RIZVI
--- NOTE | 2019-08-08 10:30 | NUR ---
LTAC: Refaxing the updated clinical info and LTAC request order to toña Armenta at [facility] tel/fax# [phone]. Addendum: 08/08/19 at 1219 by Isaura Ríos RN >> Received call back from Kathi, stated the pt is approved for LTAC transfer after reviewed by her medical secretary teacher. TOÑA notified Ronna to call Kathi for the fax approval. -- Dr Aranda made aware, Ronna will have bed for the pt today.
--- NOTE | 2019-08-08 12:15 | NUR ---
Patient is sleeping, parents are still with patient, Bed is low and locked, 2 side rails are up, call light is within reach. Yumiko RIZVI
[2019-08-08 12:30] VITALS: BP_SYST 107
--- NOTE | 2019-08-08 14:15 | NUR ---
Patient is sleeping, parents are by her side, wound care and pictures were taken. Bed is low and locked, 2 side rails are up, call light is within reach. Yumiko RIZVI
--- NOTE | 2019-08-08 14:48 | NUR ---
Nutrition F/U RD reviewed pt's current EMR record including diet Hx, physician notes, nursing notes, pertinent labs/meds/procedures, care trends, and care activity. Admission Dx: Sepsis PMH: chronic respiratory failure, s/p trach, CVA, anoxic brain injury, hydrocephalus w/ FRONT END ASSISTANT shunt, seizure disorder per physician notes Current Diet Order/Nutrition Support: Glucerna 1.5 at 55 ml/hr, Daniel BID, Free Water Flush: 100 ml Q6h via GT x7 days Subjective Info: Pt was seen resting in bed, trach to vent w/ TF infusing as per physician order, and family members at bedside at time of RD visit. Bedscale wt taken: 208# -- admission wt of 200# and current documented wt of 200# taken by nursing staff 08/07/19. Pt may retaining fluid. RN reported that pt has been tolerating TF well, and will provide Daniel at next med pass. She also reported pt's increase bilateral hand pitting edema, as well as lifestyle consultant's plan to increase pt's water flush order to 250 ml Q4h -- pt noted w/ increased sodium and chloride lab values. Current TF regimen remains adequate/appropriate. Skin Integrity Comment: Wyatt scale: 12; RD reviewed Body Designer note 07/31/19 Estimated Energy Expenditure (kcals/day) 6530-6044 kcal/day (MSJ x 1.2-1.5 CBW for sepsis) Estimated Protein Required (g/day) 86-114 gm/day (1.5-2 gm/kg Adj IBW for sepsis) Estimated Fluid Required (l/day) 1.8-2.2 L/day (1 ml/kcal/day for maintenance) Problem/Etiology/Signs/Symptoms Increased nutritional needs related to metabolic demands as evidenced by estimated nutritional requirements for sepsis. *ongoing Expected Outcomes/Goals - Monitor tolerance to EN support w/ goal of pt meeting at least 80% of estimated nutritional needs, labs trending WNL, normal GI function, and skin integrity/wt maintenance Dietitian Recommendations * Recommend continuing Glucerna 1.5 at 55 ml/hr, Daniel BID, Free Water Flush: 250 ml Q4h via GT Provides: 2140 kcal/day, 114 gm protein/day, and 2502 ml free water/day Meets: 96% of upper end of estimated caloric needs and 100% of upper end of estimated protein needs Follow Up Moderate Risk: F/U in 3-5 days
--- NOTE | 2019-08-08 14:51 | NUR ---
Dietitian Recommendations * Recommend continuing Glucerna 1.5 at 55 ml/hr, Daniel BID, Free Water Flush: 250 ml Q4h via GT Provides: 2140 kcal/day, 114 gm protein/day, and 2502 ml free water/day Meets: 96% of upper end of estimated caloric needs and 100% of upper end of estimated protein needs LP, RD Please refer to Nutrition F/U for details.
--- NOTE | 2019-08-08 15:13 | NUR ---
Discharge Planning: DCP arranged transportation with [facility] ([phone]) Will Call with RT (CCT) patient to [facility] will call nurse station with room number. Patient packet taken to nurse station.
[2019-08-08 16:45] VITALS: BP_SYST 112
--- NOTE | 2019-08-08 16:50 | NUR ---
Patient is being prepped for D/C, said to put in discharge order, will call ambulance was scheduled for 7pm orange picker machine operator, called tricia to give report, Eulalia was not available and she will call me back so i can give report. Yumiko RIZVI
--- NOTE | 2019-08-08 18:40 | NUR ---
Closing notes: Patient is waiting for transportation, everything is arranged and finalized. Parents are at bedside. Bed is low and locked, 2 side rails are up, call light within reach. Yumiko RIZVI
== END 2019-08-08 19:10 | DRG 720 ==
LOC: SED 07:20 → STU 10:52
PROVIDERS: ADMIT Internal Medicine; ATTEND Internal Medicine
PROC: 5A1955Z Respiratory Ventilation, Greater than 96 Consecutive Hours (ICD-10-PCS; principal; 2019-07-30)
DX: A41.9 Sepsis, unspecified organism (principal); E43 Unspecified severe protein-calorie malnutrition; J95.851 Ventilator associated pneumonia; J96.20 Acute and chronic respiratory failure, unspecified whether with hypoxia or hypercapnia; G82.50 Quadriplegia, unspecified; G93.1 Anoxic brain damage, not elsewhere classified; J15.6 Pneumonia due to other Gram-negative bacteria; Z99.11 Dependence on respirator [ventilator] status; G91.9 Hydrocephalus, unspecified; I11.0 Hypertensive heart disease with heart failure; I50.32 Chronic diastolic (congestive) heart failure; J44.0 Chronic obstructive pulmonary disease with (acute) lower respiratory infection; I48.0 Paroxysmal atrial fibrillation; N39.0 Urinary tract infection, site not specified; F79 Unspecified intellectual disabilities; I34.0 Nonrheumatic mitral (valve) insufficiency; E87.1 Hypo-osmolality and hyponatremia; G40.909 Epilepsy, unspecified, not intractable, without status epilepticus; Z79.01 Long term (current) use of anticoagulants; Z86.73 Personal history of transient ischemic attack (TIA), and cerebral infarction without residual deficits; Z98.2 Presence of cerebrospinal fluid drainage device; Z74.01 Bed confinement status; Z88.1 Allergy status to other antibiotic agents; Z88.8 Allergy status to other drugs, medicaments and biological substances; Z79.899 Other long term (current) drug therapy; Z68.39 Body mass index [BMI] 39.0-39.9, adult
CPT/HCPCS: 36415; 71045; 80048; 80053; 80061; 81000-TC; 83605; 83735-TC; 84100-TC; 84484; 84703; 85025; 85610-TC; 85730-TC; 87040-TC; 87070-TC; 87081; 87086; 87186-TC; 87205-TC; 93005; 94002; 94003; 94640; 94760; 96361; 96365; 99285; A6209; G0378; J0770; J1940; J1953; J1956; J2020; J3490; J7050; J7060